=== PATIENT | female | born 1950 | race Caucasian/White ===

== ENCOUNTER 2017-08-25 11:36 | Inpatient (IN) | payer MEDICAID, OTHER ==
[2017-08-25 12:32] LABS: Hematocrit 39 % (35-47); Hemoglobin 12.7 g/dl (12.0-16.0); Mean Corpuscular HGB Conc 33 g/dl (31-36); Mean Corpuscular Hemoglobin 25 pg (27-31); Mean Corpuscular Volume 78 fL (80-97); Mean Platelet Volume 8 um3 (7.4-10.4); Red Blood Count 5.05 10^6/ul (4.0-5.4); Red Cell Distribution Width 18 % (10.5-15); White Blood Count 10.2 10^3/ul (3.5-10.8)
[2017-08-25 12:50] LABS: ALT 32 U/L (7-52); AST 56 U/L (13-39); Acetaminophen < 15 mcg/mL; Albumin 3.9 g/dL (3.2-5.2); Alcohol < 10 mg/dL (<10); Alkaline Phosphatase 88 U/L (34-104); Anion Gap 12 mmol/L (2-11); Blood Urea Nitrogen 24 mg/dL (6-24); CO2 Carbon Dioxide 23 mmol/L (22-32); Calcium 9.7 mg/dL (8.6-10.3); Chloride 101 mmol/L (101-111); EGFR African American 92.3 (>60); EGFR Non-African American 71.8 (>60); Globulin 3.5 g/dL (2-4); Glucose 89 mg/dL (70-100); Salicylate < 2.50 mg/dL (<30); Sodium 136 mmol/L (133-145); Total Protein 7.4 g/dL (6.4-8.9)
[2017-08-25 13:03] LABS: Troponin I 0.02 ng/mL (<0.04)
[2017-08-25 13:04] LABS: TSH (Thyroid Stimulating Horm) 2.11 mcIU/mL (0.34-5.60)
[2017-08-25] MEDS ORDERED: diPHENhydraMINE IV* 50 MG/ML 1 ml VIAL (BENADRYL) IM ONE (13:18)
[2017-08-25] MEDS ORDERED: Haloperidol INJ IV/IM* 5 MG/ML AMP IM ONE (13:18)
[2017-08-25] MEDS ORDERED: Potassium Chlor TAB* 20 MEQ TAB.ER PO ONE ×2 (13:18→18:07)
[2017-08-25 13:27] LABS: Benzodiazepine Urine Screen None Detected (None Detect)
[2017-08-25 13:33] LABS: Urine Bacteria 1+ (Absent); Urine Bilirubin Negative (Negative); Urine Glucose Negative (Negative); Urine Nitrite Negative (Negative)
--- NOTE | 2017-08-25 13:36 | RAD ---
INDICATION: Altered mental status. COMPARISON: There are no prior studies available for comparison. TECHNIQUE: A portable view of the chest was obtained. FINDINGS: The heart appears mildly enlarged. The lungs are underinflated and clear. No pleural effusion is seen. IMPRESSION: NO EVIDENCE FOR ACUTE DISEASE.
[2017-08-25] MEDS ORDERED: cefTRIAXone(*) 1 GM in NS 0.9% 50 ML* 50 ML IVPB ONE (13:50)
--- NOTE | 2017-08-25 14:11 | RAD ---
HISTORY: Confusion, delusional COMPARISONS: None TECHNIQUE: Multiple contiguous axial CT scans were obtained of the head without intravenous contrast. FINDINGS: HEMORRHAGE/INFARCT: There is no hemorrhage or acute infarct. MASSES/SHIFT: There is no mass or shift. EXTRA-AXIAL SPACES: There are no extra-axial fluid collections. SULCI AND VENTRICLES: The sulci and ventricles are normal in size and position for the patient's stated age. CEREBRUM: There are no focal parenchymal abnormalities. BRAINSTEM: There are no focal parenchymal abnormalities. CEREBELLUM: There are no focal parenchymal abnormalities. VESSELS: The vessels are grossly normal. PARANASAL SINUSES: The paranasal sinuses are clear. ORBITS: The orbits are unremarkable. BONES AND SOFT TISSUE: No bone or soft tissue abnormalities are noted. OTHER: None IMPRESSION: NO ACUTE INTRACRANIAL PATHOLOGY.
--- NOTE | 2017-08-25 16:12 | CONSULT ---
Subjective Date of Service: 08/25/17 Interval History: Asked to see patient who was found confused on her bathroom floor 67 yo F with unknown medical history p/w confusion, delusions. Speech is a bit pressured and tangential, she is delusional. When asked where she is, she is able to state that she is at [facility] and came by an ambulance however she states she is here because she had a miscarriage this morning. She says she "felt life " inside of her and now it is gone. She tells me she was diagnosed with paranoid schizophrenia and bipolar disorder in the past and used to me on medications but 5 months ago she "threw them out" because she was sick and tired of them. Also making other claims that Aneesh William is the president and she is the first lady, that there is a beast in her closet at home and that no one can touch. Family History: Findings - Unable to obtain Social History: Findings - Unable to obtain Past Medical History: Findings - Unable to obtain Review of Systems - Measurements Intake and Output: Intake and Output Last 24 Hours 08/23/17 08/24/17 08/25/17 08/26/17 06:59 06:59 06:59 06:59 Weight 68.039 kg - Review of Systems General Comments: Unreliable Objective Vital Signs 08/25/17 08/25/17 08/25/17 11:47 11:49 12:00 Temperature 98.1 F Pulse Rate 90 82 83 Respiratory 23 Rate Blood Pressure 159/59 (mmHg) O2 Sat by Pulse 95 94 94 Oximetry 08/25/17 08/25/17 14:47 14:54 Temperature Pulse Rate 93 88 Respiratory Rate Blood Pressure 169/58 (mmHg) O2 Sat by Pulse 92 95 Oximetry Oxygen Devices in Use Now: None Appearance: Middle-aged, F, laying in bed in NAD, talking out loud prior to my entering the room Eyes: No Scleral Icterus Ears/Nose/Mouth/Throat: - - Dry MM Respiratory: Symmetrical Chest Expansion and Respiratory Effort, Clear to Auscultation Cardiovascular: NL Sounds; No Murmurs; No JVD, RRR Abdominal: NL Sounds; No Tenderness; No Distention Lymphatic: No Cervical Adenopathy Extremities: No Edema Skin: No Rash or Ulcers Neurological: - - Alert, oriented, no focal deficits Result Diagrams: 08/25/17 11:57 08/25/17 11:57 Assessment/Plan - Billing 67 yo F with hx of HTN and reported history of bipolar disorder, paranoid schizophrenia apparently off of psych meds presents with confusion/delusions. I think patient's problems are mostly due to psych issues and medication non- compliance. She has a mildly abnormal UA and she does endorse dysuria although answers in the affirmative to most ROS questions. To be on the safe side will treat with PO Keflex x 3 days. I do not think she requires a medical admission and in fact I don't think she would do well on a medical floor. Recommend Psych evaluation and consideration for admission to [facility].
[2017-08-25] MEDS: Cephalexin CAP* 250 MG PO SCH ×2 (18:29→21:53)
[2017-08-25 19:21] LABS: BUN/Creatinine Ratio 26.3 (8-20); Calcium 9.6 mg/dL (8.6-10.3); EGFR African American 97.9 (>60); EGFR Non-African American 76.1 (>60); Potassium 4.4 mmol/L (3.5-5.0)
--- NOTE | 2017-08-25 23:14 | ED ---
Kelly Garsia Gabriel, scribed for Demetrius Chand MD on 08/25/17 at 1223 . Psychiatric Complaint - HPI Summary HPI Summary: This patient is a 67 year old F BIBA to [facility] after being found in her bathroom confused and delusional after not taking her physc meds - per triage note Level 5 Caveat: HPI limited due to patient hallucinating and responding in a random and irrationally manner. - History Of Current Complaint Chief Complaint: EDMentalHealth Time Seen by Provider: 08/25/17 12:12 - Allergies/Home Medications Allergies/Adverse Reactions: Allergies Allergy/AdvReac Type Severity Reaction Status Date / Time No Known Allergies Allergy Verified 08/25/17 16:42 Home Medications: Home Medications Diphenhydramine HCl [Diphenhist] 25 - 75 mg PO BEDTIME 08/25/17 [History Confirmed 08/25/17] Divalproex ER TAB(*) [Depakote ER TAB(*)] 1,500 mg PO DAILY 08/25/17 [History Confirmed 08/25/17] Folic Acid TAB* [Folvite TAB*] 1 mg PO DAILY 08/25/17 [History Confirmed ] Furosemide TAB* [Lasix TAB*] 20 mg PO DAILY 08/25/17 [History Confirmed 08/25/17 ] Hydrochlorothiazide TAB* [Hydrodiuril TAB*] 25 mg PO DAILY 08/25/17 [History Confirmed 08/25/17] Levothyroxine TAB* [Synthroid TAB*] 88 mcg PO DAILY 08/25/17 [History Confirmed 08/25/17] Melatonin (NF) [Meladox] 3 mg PO BEDTIME 08/25/17 [History Confirmed 08/25/17] Meloxicam(NF) [Mobic(NF)] 7.5 mg PO BID 08/25/17 [History Confirmed 08/25/17] Omeprazole CAP* [Prilosec CAP* 20 MG] 40 mg PO QAM 08/25/17 [History Confirmed 08/25/17] Oxazepam CAP* [Serax CAP*] 15 mg PO BEDTIME 08/25/17 [History Confirmed 08/25/17 ] Paliperidone TAB* [Invega TAB*] 6 mg PO DAILY 08/25/17 [History Confirmed ] Paliperidone [Paliperidone ER] 6 mg PO DAILY 08/25/17 [History Confirmed ] Simvastatin TAB(NF) [Zocor(NF)] 10 mg PO BEDTIME 08/25/17 [History Confirmed ] PMH/Surg Hx/FS Hx/Imm Hx Previously Healthy: No Infectious Disease History: No Infectious Disease History: Denies: Traveled Outside the [place] in Last 30 Days - Social History Alcohol Use: None Substance Use Type: Reports: None Smoking Status (MU): Never Smoked Tobacco - Additional Comments History Additional Comments: Level 5 Caveat: Medical history limited due to patient hallucinating and responding in a random and irrationally manner. Review of Systems - ROS Summary Review of Systems Summary: Level 5 Caveat: ROS limited due to patient hallucinating and responding in a random and irrationally manner. Psychological: Other - Patient is hallucinating All Other Systems Reviewed And Are Negative: No Physical Exam Triage Information Reviewed: Yes Vital Signs On Initial Exam: Initial Vitals Pulse Pulse Ox 90 95 08/25/17 11:47 08/25/17 11:47 Vital Signs Reviewed: Yes Completion Of Physical Exam Limited Due To: Level 5 Appearance: Positive: No Pain Distress Skin: Positive: Warm, Skin Color Reflects Adequate Perfusion Head/Face: Positive: Normal Head/Face Inspection Eyes: Positive: EOMI Respiratory/Lung Sounds: Positive: Clear to Auscultation, Breath Sounds Present Cardiovascular: Positive: RRR. Negative: Murmur Abdomen Description: Positive: Nontender Musculoskeletal: Negative: Edema Left, Edema Right Neurological: Positive: Sensory/Motor Intact, CN Intact II-III Psychiatric: Positive: Anxious - the patient is actively talking to people that are not in the room. - Sabino Coma Scale Coma Scale Total: 15 Diagnostics - Vital Signs Vital Signs Temp Pulse Resp BP Pulse Ox 08/25/17 12:00 83 94 08/25/17 11:49 98.1 F 82 23 159/59 94 08/25/17 11:47 90 95 - Laboratory Result Diagrams: 08/25/17 11:57 08/25/17 18:32 Lab Statement: Any lab studies that have been ordered have been reviewed, and results considered in the medical decision making process. - Radiology CXR Radiology Interpretation Completed By: Radiologist - NO EVIDENCE FOR ACUTE DISEASE. ED physician has reviewed this radiology report and agrees. - CT CT Brain CT Interpretation Completed By: Radiologist - T Brain reveals, per radiologist, NO ACUTE INTRACRANIAL PATHOLOGY. ED physician has reviewed this radiology report and agrees. - EKG 14:25 Cardiac Rate: NL EKG Rhythm: Sinus Rhythm - 84 BPM EKG Interpretation: Normal MS, RBBB Course/Dx - Course Course Of Treatment: 67 yr old femlae with psychosis, uti. MH history. Admit to hospital. - Differential Dx/Clinical Impression Provider Diagnosis: UTI (urinary tract infection), Psychosis - Physician Notifications Discussed Care Of Patient With: Juan C Tubbs Time Discussed With Above Provider: 16:00 Instructed by Provider To: Other - Discussed patient care with Loyd Tubbs who came and saw the patient and he recommended that the patient should not be admitted but instead should be sent to psychiatry. Discharge - Discharge Plan Condition: Good Disposition: OTHER Discharge Disposition Comment: final dispo pending sign out to Dr Waggoner [id number] Referrals: Nii Roque MD [Primary Care Provider] - The documentation as recorded by the Kelly staples Gabriel accurately reflects the service I personally performed and the decisions made by , Demetrius Chand MD.
[2017-08-26] MEDS: Cephalexin CAP* 250 MG PO SCH ×2 (07:34→12:59)
[2017-08-26 08:54] LABS: ALT 27 U/L (7-52); AST 49 U/L (13-39); Albumin 3.6 g/dL (3.2-5.2); Alkaline Phosphatase 82 U/L (34-104); Anion Gap 8 mmol/L (2-11); BUN/Creatinine Ratio 21.7 (8-20); Blood Urea Nitrogen 15 mg/dL (6-24); CO2 Carbon Dioxide 25 mmol/L (22-32); Calcium 9.5 mg/dL (8.6-10.3); Chloride 102 mmol/L (101-111); EGFR African American 109.5 (>60); EGFR Non-African American 85.1 (>60); Globulin 3.5 g/dL (2-4); Glucose 134 mg/dL (70-100); Potassium 3.6 mmol/L (3.5-5.0); Sodium 135 mmol/L (133-145); Total Protein 7.1 g/dL (6.4-8.9)
[2017-08-26] MEDS ORDERED: Cephalexin CAP* 500 MG PO ONE (13:19)
[2017-08-26] MEDS ORDERED: LORazepam TAB(*) 1 MG PO ONE (14:29)
[2017-08-26] MEDS ORDERED: Haloperidol TAB* 5 MG PO ONE (14:29)
[2017-08-26] MEDS ORDERED: Hydrochlorothiazide TAB* 25 MG PO ONE (14:31)
[2017-08-26] MEDS ORDERED: Omeprazole CAP* 20 MG PO ONE (14:31)
[2017-08-26] MEDS ORDERED: Folic Acid TAB* 1 MG PO ONE (14:31)
[2017-08-26 15:29] LABS: T4 8.41 mcg/mL (6.09-12.23)
[2017-08-26 15:32] LABS: TSH (Thyroid Stimulating Horm) 2.11 mcIU/mL (0.34-5.60)
[2017-08-26 15:39] LABS: Total T3 0.69 ng/mL (0.87-1.78)
[2017-08-26 16:20] LABS: Valproic Acid < 13.0 mcg/mL (50-100)
[2017-08-26] MEDS: CMC:Meloxicam(NF) 7.5 MG TAB PO SCH (16:51)
--- NOTE | 2017-08-26 17:57 | ED ---
I, Kasi Renteria, scribed for Loyd Bella MD on 08/26/17 at 0919 . Progress - Progress Note Progress Note: Pt signed out by Dr. Waggoner. Re-Evaluation - Re-Evaluation 1 Re-Evaluation Time: 08:55 Comment: Pt is delusional. I see no signs of hepatic encephalopathy. The pt is suitable for psychiatric admisison. Course/Dx - Course Course Of Treatment: On re-eval, the pt is delusional. I see no signs of hepatic encephalopathy. The pt is suitable for psychiatric admisison. Spoke with a remediation bioanalytics consultant at 09:30. I again recommended the pt be admitted to psych services. They will call back and advise us with their decision. - Diagnoses Provider Diagnoses: UTI (urinary tract infection), Psychosis - Provider Notifications Time Discussed With Above Provider: 16:00 Instructed by Provider To: Other - Discussed patient care with Loyd Tubbs who came and saw the patient and he recommended that the patient should not be admitted but instead should be sent to psychiatry. The documentation as recorded by the kenyattaibMyra salazar Edward accurately reflects the service I personally performed and the decisions made by me, Loyd Bella MD.
[2017-08-27] MEDS ORDERED: OLANzapine TAB*ODT* 10 MG TAB PO ONE (00:32)
[2017-08-27] MEDS ORDERED: Haloperidol INJ IV/IM* 5 MG/ML AMP IM PRN (03:40)
[2017-08-27] MEDS ORDERED: LORazepam INJ* 2 MG/ML 1 ML VIAL IM PRN (03:42)
[2017-08-27] MEDS ORDERED: Haloperidol TAB* 5 MG PO PRN (03:43)
[2017-08-27] MEDS ORDERED: LORazepam TAB(*) 1 MG PO PRN (03:44)
[2017-08-27] MEDS ORDERED: LORazepam INJ* 2 MG/ML 1 ML VIAL ONE ×2 (03:45→23:07)
[2017-08-27] MEDS ORDERED: Haloperidol INJ IV/IM* 5 MG/ML AMP ONE ×2 (03:45→23:07)
[2017-08-27] MEDS ORDERED: LORazepam TAB(*) 1 MG PO ONE (04:00)
[2017-08-27] MEDS ORDERED: Haloperidol TAB* 5 MG PO ONE (04:00)
[2017-08-27] MEDS ORDERED: Levothyroxine TAB* 88 MCG TAB PO ONE (06:00)
[2017-08-27] MEDS: Cephalexin CAP* 250 MG PO SCH ×5 (11:42→21:09)
[2017-08-27] MEDS: CMC:Meloxicam(NF) 7.5 MG TAB PO SCH (11:42)
[2017-08-27] MEDS: Vitamin THERAPEUTIC TAB PO SCH (11:43)
[2017-08-27] MEDS ORDERED: OLANzapine TAB*ODT* 5 MG ONE (13:47)
[2017-08-27] MEDS: OLANzapine TAB*ODT* 5 MG PO SCH (14:11)
--- NOTE | 2017-08-27 21:19 | HP ---
HISTORY AND PHYSICAL: DATE OF ADMISSION: 08/26/17 IDENTIFYING DATA: Laura is a 67-year-old female with no known history of psychiatric treatment here or any known past psychiatric history, was brought to the emergency department by EMS after she activated a medical alarm from her apartment. According to the EMS report, she was found by them in a confused, disorganized, psychotic and dishevelled state. At the time, she reported to the EMS people that she just had a miscarriage and was bleeding from her vagina which was found not to be true. On presentation, there was some question as to whether she was in a state of delirium due to some unknown medical conditions. However, her labs showed that she had a UTI and elevated ammonia level which could be the potential reason for her to be in a state indicative of delirium manifested as auditory and visual hallucinations and psychomotor agitation, disorganization of thoughts and behaviors, making gestures and senseless comments, frequently yelling at unseen objects. She was in the emergency room overnight and received few doses of antibiotics to treat her UTI. In the morning, when I went to the emergency department to evaluate her, she continued to be disorganized, agitated, yelling at unseen objects, and gesturing as if she was experiencing visual hallucinations. Her conversations were all nonsensical and she was a very poor historian. We decided to admit her on behavioral health unit and monitor her closely. Multiple attempts to evaluate her by myself and staff members were unsuccessful because of her showing disorganization and her inability to provide any meaningful information. Once again, this morning when I tried to talk to her, she yelled at me saying that get out of here and continued to respond to some unseen objects, putting her hands up and making gestures. Rest of the history is unobtainable and there was no collateral that we could obtain from anyone that known to us. There were some indications that she has not been taking her medications for some time. That was also evidenced by very low level of Depakote in her serum. It was very difficult to do a physical examination in the emergency department as expressed by the ER staff. She was incontinent of both stool and urine. Other than that, there was no indication that she was in any acute physical distress. Vitals were all within normal limits with a blood pressure of 169/58, pulse rate of 80 to 90, temperature within normal range, O2 sat in the high 90s. LABORATORY DATA: Review of labs was mostly unremarkable. CBC with differential showed a WBC count of 10.2, hemoglobin 12.7, hematocrit 39, platelet count 264,000. CMP showed sodium of 136, initial potassium level was 3.0 which was later corrected, chloride was 101, carbon dioxide 23, BUN 24, creatinine 0.80. Her Depakote level was in 20s. Her ammonia level initially was high in 60s which eventually came down to mid 50s. MENTAL STATUS EXAMINATION: Laura is a 67-year-old obese, healthy appearing female wearing a hospital gown whose personal hygiene appears to be extremely poor with strong smell of urine and stool. She was alert, but completely disoriented at least to date and time. She knew she as at [facility]; however, could not identify anyone around her, everybody around her were anyway strangers. She knew her name, and at the time of evaluation she was showing something in the space and was yelling at that time to time. Rest of the mental status examination was unable to be completed. SUMMARY: This is a 67-year-old female brought by EMS who was found in her apartment in an agitated, disorganized state and making no sense of what she was trying to tell the EMS people. She continued to be disorganized and disoriented after her admission to the behavioral health unit. Her labs showed some abnormalities in her urine as well as her ammonia level was high raising a concern about a state of delirium; however, it was unknown whether she was compliant with her psychotropic medications if there were any; however, list of medicines that was provided did have her own Depakote. HOME MEDICATIONS: Included: 1. Melatonin. 2. Folic acid. 3. Hydrochlorothiazide. 4. Invega p.o. 5. Simvastatin. 6. Meloxicam. 7. Omeprazole. 8. Levothyroxine. 9. Furosemide. 10. Depakote. 11. Omeprazole. 12. Diphenhydramine. DIAGNOSTIC IMPRESSION: MENTAL HEALTH DIAGNOSES: Delirium secondary to general medical conditions such as urinary tract infection as well as high ammonia level, rule out bipolar disorder, rule out unspecified psychotic disorder. PHYSICAL HEALTH DIAGNOSES: Hypothyroidism, possible hypertension, and unspecified arthritis. TREATMENT PLAN: Laura will remain hospitalized on behavioral health unit for her safety, diagnostic clarification and psychopharmacological treatment to stabilize current psychotic symptoms. Her code status will remain full. She will be very closely monitored on the unit. Zyprexa Zydis 10 mg p.o. was prescribed. The patient refused any p.o. medications including her antibiotic and psychotropic medications. Haldol 5 mg IM q.6 hours p.r.n. along with lorazepam 1 mg p.o. q.6 hours p.r.n. was ordered and she received multiple doses since yesterday which appeared to have calmed her down and she slept most of the time. However, whenever she was up at night she continued to scream and yell at unseen objects, requiring stat medications as she was refusing to take any oral medications. I have started Laura on lactulose 30 mL 3 times a day to see if her ammonia level goes down and then maybe she will in the meantime start taking her p.o. medications including antibiotics and other medical medications. We will also continue to offer her Zyprexa Zydis 5 mg at bedtime and increase it as she tolerates. Staff will continue to encourage her to take p.o. medications. [id number]/[facility] #: [id number] [place]
[2017-08-27] MEDS ORDERED: LORazepam INJ* 2 MG/ML 1 ML VIAL IM ONE (23:11)
[2017-08-27] MEDS ORDERED: Haloperidol INJ IV/IM* 5 MG/ML AMP IM ONE (23:11)
[2017-08-28] MEDS: OLANzapine TAB*ODT* 5 MG PO SCH (08:56)
[2017-08-28] MEDS: Cephalexin CAP* 250 MG PO SCH ×2 (08:56→12:59)
[2017-08-28] MEDS: CMC:Meloxicam(NF) 7.5 MG TAB PO SCH (08:56)
[2017-08-28] MEDS: Vitamin THERAPEUTIC TAB PO SCH (08:57)
--- NOTE | 2017-08-28 10:10 | PN ---
Subjective - Subjective Service Type: 75330 Hosp care 15 min low complexity Subjective: Patient continues to display disorganized and disoriented TP. Patient is more interactive with staff and is able to make her needs known. Patient is A&Ox1. She has had poor sleep and appetite. Patient noted this morning to be soiled of loose stools. She has reported no SI/HI or AH/VH today. She has been safe on all checks. Patient has completed today a 3-day course of Keflex 250mg po QID for UTI. Will repeat urine cx in am. Repeating also CMP and Mg level for mx of low potassium. Also will order another Ammonia level to monitor that it continues to decline. Will D/C Lactulose ordered. Objective - Appearance Appearance: Well Developed/Nourished Dysmorphic Features: No Hygiene: Mal-odorous Grooming: Disheveled - Behavior Psychomotor Activities: Abnormal-Decreased Exhibits Abnormal Movement: No - Attitude and Relatedness Attitude and Relatedness: Psychotically Related Eye Contact: Poor - Speech Quality: Unpressured Latencies: Long Quantity: Terse - Mood Patient's Decription of Mood: "Okay" - Affect Observed Affect: Constricted Affect Consistent with: Dysphoria - Thought Process Patient's Thought Process: Impoverished Thought Content: No Passive Wish, No Suicidal Planning, No Homicidal Ideation, No Paranoid Ideation - Sensorium Experiencing Hallucinations: No, Sensorium is Clear Type of Hallucinations: Visual: No, Auditory: No, Command: No - Level of Consciousness Level of Consciousness: Obtunded Orientation: No Intact, No Orientated to Time, No Orientated to Place, No Orientated to Person - Impulse Control Impulse Control: Impaired - Insight and Judgement Insight and Judgement: Impaired - Group Participation Particating in Group Activities: No - Medication Management Medication Management Adherence: Yes Assessment - Assessment Merits Inpatient Hospitalization: For Immediate Safety, For Stabilization, To Initiate Treatment, For Ongoing Evaluation, For Discharge Planning Inpatient DSM-IV Dx: 1. Delirium due to another medical condition (UTI). 2. Bipolar d/o. 3. Hypothyroidism Plan - Plan Treatment Plan: Name: JULES CHAU Birthdate: 1950 [id number] 1. Continue admission to [facility] for safety and symptom mx. 2. Patient is elderly with noted UTI. Per record, patient has completed a 3 day course of Keflex 250mg po QID for UTI. Will repeat urine cx in am. 3. Will continue D/C Lactulose and re-assess need in am. 4. Divalproex ER re-started at 1500mg po qhs for mood stabilization. 5. Continue medical meds as Rx'd prior to admission. 6. Will re-peat and refer ? of Hypothyroidism to PCP once discharged. 7. Continue Synthroid at 88mcg daily for mx of Hypothyroidism as Rx'd prior to admission. 8. Will continue Serax at 15mg po qhs for anxiety. 9. Obtain collateral information from outpt caregivers, family and providers. 10. Patient currently unable to participate in therapy. Continued Medication Management: Continue Outpt Medication Medications: Current Medications Acetaminophen (Tylenol Tab*) 650 mg PO Q4H PRN PRN Reason: PAIN,TEMP>101 Al Hydrox/Mg Hydrox/Simethicone (Maalox Plus*) 30 ml PO Q4H PRN PRN Reason: INDIGESTION Cephalexin HCl (Keflex Cap*) 250 mg PO QID [facility] Stop: 08/28/17 16:59 Last Admin: 08/28/17 08:56 Dose: 250 mg Haloperidol (Haldol Tab*) 5 mg PO Q6H PRN PRN Reason: AGITATION Lactulose (Lactulose*) 30 ml PO TID [facility] Last Admin: 08/28/17 09:05 Dose: 30 ml Lorazepam (Ativan Tab(*)) 1 mg PO Q6H PRN PRN Reason: AGITATION Meloxicam (Mobic(Nf)) 7.5 mg PO DAILY [facility] Last Admin: 08/28/17 08:56 Dose: 7.5 mg Multivitamins (Theragran Tab*) 1 tab PO DAILY [facility] Last Admin: 08/28/17 08:57 Dose: 1 tab Olanzapine (Zyprexa * Tab Odt) 5 mg PO DAILY [facility] Last Admin: 08/28/17 08:56 Dose: 5 mg - Discharge Plan Discharge Plan: [facility]
[2017-08-28 10:35] LABS: Albumin 3.6 g/dL (3.2-5.2); BUN/Creatinine Ratio 16.3 (8-20); Calcium 9.6 mg/dL (8.6-10.3); EGFR African American 92.3 (>60); EGFR Non-African American 71.8 (>60); Globulin 3.6 g/dL (2-4); Potassium 3.1 mmol/L (3.5-5.0); Total Bilirubin 0.6 mg/dL (0.2-1.0); Total Protein 7.2 g/dL (6.4-8.9)
[2017-08-29] MEDS: CMC:Meloxicam(NF) 7.5 MG TAB PO SCH (09:14)
[2017-08-29] MEDS: Vitamin THERAPEUTIC TAB PO SCH (09:14)
[2017-08-29] MEDS: OLANzapine TAB*ODT* 5 MG PO SCH ×2 (09:14→09:24)
[2017-08-29 15:41] LABS: Albumin 3.7 g/dL (3.2-5.2); BUN/Creatinine Ratio 16.7 (8-20); Calcium 9.7 mg/dL (8.6-10.3); EGFR African American 74.8 (>60); EGFR Non-African American 58.1 (>60); Globulin 3.7 g/dL (2-4); Magnesium 1.7 mg/dL (1.9-2.7); Potassium 3.8 mmol/L (3.5-5.0); Total Bilirubin 0.6 mg/dL (0.2-1.0); Total Protein 7.4 g/dL (6.4-8.9)
--- NOTE | 2017-08-29 16:52 | PN ---
Subjective - Subjective Service Type: 88647 Hosp care 15 min low complexity Subjective: Laura is met for the first time by this observer this afternoon. She is lying in bed, awake and invites me to come in. She immediately starts making irrational statements and interacting with an unseen person in the room. "It's true what you heard. I have Larry Pulido's baby. I need the mannequin maker right in here with me." She makes multiple statements to the effect that the politician Aneesh William is president of the [employer] and has a personal relationship with her. She is loud and hyperverbal at times. She denies SI or HI but is quite unstable. Patient continues to refuse medications. Objective - Appearance Appearance: Obese Dysmorphic Features: No Hygiene: Dirty Grooming: Disheveled - Behavior Psychomotor Activities: Normal Exhibits Abnormal Movement: No - Attitude and Relatedness Attitude and Relatedness: Psychotically Related Eye Contact: Poor - Speech Quality: Pressured Latencies: Short Quantity: Copious - Mood Patient's Decription of Mood: "Upset" - Affect Observed Affect: Labile Affect Consistent with: Dysphoria - Thought Process Patient's Thought Process: Loose Associations Thought Content: Yes Paranoid Ideation, No Passive Wish, No Suicidal Planning, No Homicidal Ideation - Sensorium Experiencing Hallucinations: Yes Type of Hallucinations: Visual: Yes, Auditory: Yes, Command: No - Level of Consciousness Level of Consciousness: Agitated Orientation: Yes Intact, Yes Orientated to Time, Yes Orientated to Place, Yes Orientated to Person - Impulse Control Impulse Control: Poor - Insight and Judgement Insight and Judgement: Impaired - Group Participation Particating in Group Activities: No - Medication Management Medication Management Adherence: No Assessment - Assessment Merits Inpatient Hospitalization: For Immediate Safety, For Stabilization Inpatient DSM-IV Dx: 1. Delirium due to another medical condition (UTI). 2. Bipolar d/o. 3. Hypothyroidism Clinical Impression: 67 y.o. single, white female with chronic mental illness, non-adherent with outpatient treatment for past 2 years, brought in by EMS after activating her home emergency medical bracelet after a fall, subsequently found to be illogical , confused, delusional and unable to take care of herself in the community. Plan - Plan Treatment Plan: Name: LAURA CHAU Birthdate: 1950 [id number] We will discontinue olanzapine, as the patient has a history of doing well on a combination of paliperidone and Depakote. These will be resumed and the patient is strongly encouraged to comply. We can consider Treatment Over Objection if she continues to decline pharmacotherapy. The patient's antibiotic course for her UTI has concluded. Labs for CMP and ammonia are pending. Continue inpatient level of care. Continued Medication Management: Start Medication Medications: Current Medications Acetaminophen (Tylenol Tab*) 650 mg PO Q4H PRN PRN Reason: PAIN,TEMP>101 Al Hydrox/Mg Hydrox/Simethicone (Maalox Plus*) 30 ml PO Q4H PRN PRN Reason: INDIGESTION Haloperidol (Haldol Tab*) 5 mg PO Q6H PRN PRN Reason: AGITATION Lorazepam (Ativan Tab(*)) 1 mg PO Q6H PRN PRN Reason: AGITATION Meloxicam (Mobic(Nf)) 7.5 mg PO DAILY [facility] Last Admin: 08/29/17 09:14 Dose: 7.5 mg Multivitamins (Theragran Tab*) 1 tab PO DAILY [facility] Last Admin: 08/29/17 09:14 Dose: 1 tab Olanzapine (Zyprexa * Tab Odt) 5 mg PO DAILY [facility] Last Admin: 08/29/17 09:24 Dose: Not Given - Discharge Plan Discharge Plan: Inpatient Hospitalization
[2017-08-29] MEDS: Paliperidone TAB* 6 MG PO SCH (17:55)
[2017-08-29] MEDS: Divalproex DR TAB(*) 500 MG PO SCH (17:55)
[2017-08-30] MEDS: Divalproex DR TAB(*) 500 MG PO SCH (08:51)
[2017-08-30] MEDS: Paliperidone TAB* 6 MG PO SCH (08:51)
[2017-08-30] MEDS: CMC:Meloxicam(NF) 7.5 MG TAB PO SCH (08:52)
[2017-08-30] MEDS: Vitamin THERAPEUTIC TAB PO SCH (08:52)
--- NOTE | 2017-08-30 11:16 | PN ---
Subjective - Subjective Service Type: [id number] Hosp care 15 min low complexity Subjective: The patient started taking her medication last night and has continued so far this morning. On exam she is still quite delusional and tells me that she has a note for her downstairs from President [employer] Laws. "That's not all I want to tell you. I'm ." she whispers, pointing to her abdomen. She is isolative to her room and not participating in groups or milieu socialization. Objective - Appearance Appearance: Obese Dysmorphic Features: No Hygiene: Dirty Grooming: Disheveled - Behavior Psychomotor Activities: Normal Exhibits Abnormal Movement: No - Attitude and Relatedness Attitude and Relatedness: Psychotically Related Eye Contact: Fair - Speech Quality: Pressured Latencies: Normal Quantity: Copious - Mood Patient's Decription of Mood: "Upset" - Affect Observed Affect: Labile Affect Consistent with: Dysphoria - Thought Process Patient's Thought Process: Loose Associations Thought Content: Yes Paranoid Ideation, No Passive Wish, No Suicidal Planning, No Homicidal Ideation - Sensorium Experiencing Hallucinations: Yes Type of Hallucinations: Visual: Yes, Auditory: Yes, Command: No - Level of Consciousness Level of Consciousness: Alert Orientation: Yes Intact, Yes Orientated to Time, Yes Orientated to Place, Yes Orientated to Person - Impulse Control Impulse Control: Poor - Insight and Judgement Insight and Judgement: Impaired - Group Participation Particating in Group Activities: No - Medication Management Medication Management Adherence: Partial Assessment - Assessment Merits Inpatient Hospitalization: For Immediate Safety, For Stabilization Inpatient DSM-IV Dx: 1. Delirium due to another medical condition (UTI). 2. Bipolar d/o. 3. Hypothyroidism Clinical Impression: 67 y.o. single, white female with chronic mental illness, non-adherent with outpatient treatment for past 2 years, brought in by EMS after activating her home emergency medical bracelet after a fall, subsequently found to be illogical , confused, delusional and unable to take care of herself in the community. Plan - Plan Treatment Plan: Name: JULES CHAU Birthdate: 1950 [id number] The patient has a history of doing well on a combination of paliperidone and Depakote and these have been resumed. The patient is strongly encouraged to comply. We can consider Treatment Over Objection if she continues to decline pharmacotherapy. The patient's antibiotic course for her UTI has concluded. Labs for CMP and ammonia are pending. Continue inpatient level of care. Continued Medication Management: Start Medication Medications: Current Medications Acetaminophen (Tylenol Tab*) 650 mg PO Q4H PRN PRN Reason: PAIN,TEMP>101 Al Hydrox/Mg Hydrox/Simethicone (Maalox Plus*) 30 ml PO Q4H PRN PRN Reason: INDIGESTION Divalproex Sodium (Depakote Dr Tab(*)) 1,000 mg PO DAILY [facility] Last Admin: 08/30/17 08:51 Dose: 1,000 mg Haloperidol (Haldol Tab*) 5 mg PO Q6H PRN PRN Reason: AGITATION Lorazepam (Ativan Tab(*)) 1 mg PO Q6H PRN PRN Reason: AGITATION Meloxicam (Mobic(Nf)) 7.5 mg PO DAILY [facility] Last Admin: 08/30/17 08:52 Dose: 7.5 mg Multivitamins (Theragran Tab*) 1 tab PO DAILY [facility] Last Admin: 08/30/17 08:52 Dose: 1 tab Paliperidone (Invega Tab*) 6 mg PO DAILY [facility] Last Admin: 08/30/17 08:51 Dose: 6 mg - Discharge Plan Discharge Plan: Inpatient Hospitalization
[2017-08-31] MEDS: Vitamin THERAPEUTIC TAB PO SCH (08:41)
[2017-08-31] MEDS: Divalproex DR TAB(*) 500 MG PO SCH (08:41)
[2017-08-31] MEDS: CMC:Meloxicam(NF) 7.5 MG TAB PO SCH (08:41)
[2017-08-31] MEDS: Paliperidone TAB* 6 MG PO SCH (08:41)
--- NOTE | 2017-08-31 09:50 | PN ---
Subjective - Subjective Service Type: [id number] Hosp care 15 min low complexity Subjective: Laura is feeling better today and is out of her room and seems less agitated than previous hospital days. She has been taking her medications as prescribed but not necessarily going to groups. Today she again informs me that she has received a letter from [facility]. She is less intense about him and is actually quite sweet. She denies thoughts of harm to self or others and has been eating and drinking normally. Objective - Appearance Appearance: Obese Dysmorphic Features: No Hygiene: Normal Grooming: Fairly Well Kept - Behavior Psychomotor Activities: Normal Exhibits Abnormal Movement: No - Attitude and Relatedness Attitude and Relatedness: Psychotically Related Eye Contact: Good - Speech Quality: Unpressured Latencies: Normal Quantity: Appropriate - Mood Patient's Decription of Mood: "Great" - Affect Observed Affect: Expansive Affect Consistent with: Euphoria - Thought Process Patient's Thought Process: Disorganized, Loose Associations Thought Content: Yes Paranoid Ideation, No Passive Wish, No Suicidal Planning, No Homicidal Ideation - Sensorium Experiencing Hallucinations: Yes Type of Hallucinations: Visual: No, Auditory: Yes, Command: No - Level of Consciousness Level of Consciousness: Alert Orientation: Yes Intact, Yes Orientated to Time, Yes Orientated to Place, Yes Orientated to Person - Impulse Control Impulse Control: Poor - Insight and Judgement Insight and Judgement: Impaired - Group Participation Particating in Group Activities: No - Medication Management Medication Management Adherence: Yes Assessment - Assessment Merits Inpatient Hospitalization: For Immediate Safety, For Stabilization Inpatient DSM-IV Dx: 1. Delirium due to another medical condition (UTI). 2. Bipolar d/o. 3. Hypothyroidism Clinical Impression: 67 y.o. single, white female with chronic mental illness, non-adherent with outpatient treatment for past 2 years, brought in by EMS after activating her home emergency medical bracelet after a fall, subsequently found to be illogical , confused, delusional and unable to take care of herself in the community. Plan - Plan Treatment Plan: Name: LAURA CHAU Birthdate: 1950 [id number] The patient has a history of doing well on a combination of paliperidone and Depakote and these have been resumed. She's started to show some improvement as her adherence has gotten better. The patient's antibiotic course for her UTI has concluded. Ammonia no longer elevated. Continue inpatient level of care. Continued Medication Management: Start Medication Medications: Current Medications Acetaminophen (Tylenol Tab*) 650 mg PO Q4H PRN PRN Reason: PAIN,TEMP>101 Al Hydrox/Mg Hydrox/Simethicone (Maalox Plus*) 30 ml PO Q4H PRN PRN Reason: INDIGESTION Divalproex Sodium (Depakote Er Tab(*)) 1,500 mg PO DAILY [facility] Haloperidol (Haldol Tab*) 5 mg PO Q6H PRN PRN Reason: AGITATION Lorazepam (Ativan Tab(*)) 1 mg PO Q6H PRN PRN Reason: AGITATION Meloxicam (Mobic(Nf)) 7.5 mg PO DAILY [facility] Last Admin: 08/31/17 08:41 Dose: 7.5 mg Multivitamins (Theragran Tab*) 1 tab PO DAILY [facility] Last Admin: 08/31/17 08:41 Dose: 1 tab Paliperidone (Invega Tab*) 6 mg PO DAILY [facility] Last Admin: 08/31/17 08:41 Dose: 6 mg - Discharge Plan Discharge Plan: Inpatient Hospitalization
[2017-09-01] MEDS: Acetaminophen TAB* 325 MG PO PRN (01:16)
[2017-09-01] MEDS ORDERED: Loperamide CAP* 2 MG PO ONE (10:19)
[2017-09-01] MEDS: Divalproex ER TAB(*) 500 MG PO SCH (10:45)
[2017-09-01] MEDS: Vitamin THERAPEUTIC TAB PO SCH (13:23)
[2017-09-01] MEDS: Paliperidone TAB* 6 MG PO SCH (13:23)
[2017-09-01] MEDS: CMC:Meloxicam(NF) 7.5 MG TAB PO SCH (13:23)
--- NOTE | 2017-09-01 15:02 | PN ---
Subjective - Subjective Subjective: Laura is seclusive to her room, she complains of waking every 2 AM but she is usually able to fall asleep. She denies side effects from prescribed meds although some drooling is noted. She offer delusional complaints "about fracking in her abdomen." She denies thoughts of harm to self or others and has been eating and drinking normally. Objective - Appearance Appearance: Healthy Appearing Dysmorphic Features: No Hygiene: Normal Grooming: Well Kept - Behavior Psychomotor Activities: Normal Exhibits Abnormal Movement: No - Attitude and Relatedness Attitude and Relatedness: Psychotically Related Eye Contact: Fair - Speech Quality: Unpressured Latencies: Normal Quantity: Appropriate - Mood Patient's Decription of Mood: "Okay" - Affect Observed Affect: Unvariable Affect Consistent with: Euthymia - Thought Process Patient's Thought Process: Coherent, Goal Directed Thought Content: Yes Paranoid Ideation, No Passive Wish, No Suicidal Planning, No Homicidal Ideation - Sensorium Experiencing Hallucinations: No, Sensorium is Clear - Level of Consciousness Level of Consciousness: Alert Orientation: Yes Intact - Impulse Control Impulse Control: Intact - Insight and Judgement Insight and Judgement: Impaired - Group Participation Particating in Group Activities: No - Medication Management Medication Management Adherence: Yes Assessment - Assessment Merits Inpatient Hospitalization: For Ongoing Evaluation, Consolidate Improvements Inpatient DSM-IV Dx: 1. Delirium due to another medical condition (UTI). 2. Bipolar d/o. 3. Hypothyroidism Clinical Impression: Ongoing impairing psychotic symptoms, adherent with prescribed meds, needs continued admission for stabilization. Plan - Plan Treatment Plan: Name: LAURA CHAU Birthdate: 1950 [id number] Continued Medication Management: Continue Outpt Medication Medications: Current Medications Acetaminophen (Tylenol Tab*) 650 mg PO Q4H PRN PRN Reason: PAIN,TEMP>101 Last Admin: 09/01/17 01:16 Dose: 650 mg Al Hydrox/Mg Hydrox/Simethicone (Maalox Plus*) 30 ml PO Q4H PRN PRN Reason: INDIGESTION Divalproex Sodium (Depakote Er Tab(*)) 1,500 mg PO DAILY [facility] Last Admin: 09/01/17 10:45 Dose: 1,500 mg Haloperidol (Haldol Tab*) 5 mg PO Q6H PRN PRN Reason: AGITATION Lorazepam (Ativan Tab(*)) 1 mg PO Q6H PRN PRN Reason: AGITATION Meloxicam (Mobic(Nf)) 7.5 mg PO DAILY [facility] Last Admin: 09/01/17 13:23 Dose: Not Given Multivitamins (Theragran Tab*) 1 tab PO DAILY [facility] Last Admin: 09/01/17 13:23 Dose: Not Given Paliperidone (Invega Tab*) 6 mg PO DAILY [facility] Last Admin: 09/01/17 13:23 Dose: Not Given - Discharge Plan Discharge Plan: Outpatient Follow Up
[2017-09-02] MEDS: Acetaminophen TAB* 325 MG PO PRN (03:35)
[2017-09-02] MEDS: CMC:Meloxicam(NF) 7.5 MG TAB PO SCH ×2 (09:50→11:18)
[2017-09-02] MEDS: Paliperidone TAB* 6 MG PO SCH ×2 (09:50→11:19)
[2017-09-02] MEDS: Vitamin THERAPEUTIC TAB PO SCH ×2 (09:50→11:19)
[2017-09-02] MEDS: Divalproex ER TAB(*) 500 MG PO SCH ×2 (09:50→11:18)
[2017-09-02] MEDS: Al Hydrox/Mg Hydrox/Simet LIQ* 30 ML UDC PO PRN (17:50)
[2017-09-03] MEDS: Divalproex ER TAB(*) 500 MG PO SCH (09:01)
[2017-09-03] MEDS: Paliperidone TAB* 6 MG PO SCH (09:01)
[2017-09-03] MEDS: CMC:Meloxicam(NF) 7.5 MG TAB PO SCH (09:01)
[2017-09-03] MEDS: Vitamin THERAPEUTIC TAB PO SCH (09:02)
[2017-09-03] MEDS ORDERED: LORazepam TAB(*) 1 MG PO PRN (10:56)
[2017-09-04] MEDS: Acetaminophen TAB* 325 MG PO PRN ×3 (01:10→13:58)
[2017-09-04] MEDS: CMC:Meloxicam(NF) 7.5 MG TAB PO SCH (09:00)
[2017-09-04] MEDS: Vitamin THERAPEUTIC TAB PO SCH (09:00)
[2017-09-04] MEDS: Paliperidone TAB* 6 MG PO SCH (09:01)
[2017-09-04] MEDS: Divalproex ER TAB(*) 500 MG PO SCH (09:01)
--- NOTE | 2017-09-04 13:26 | PN ---
Subjective - Subjective Service Type: [id number] Hosp care 15 min low complexity Subjective: The patient accidentally scalded herself with hot water at the coffee machine while trying to make tea this AM. Her hand is reddened but with no open lesions or blisters. Pharmacy was contacted and they recommended Triple AB ointment for the wound. Laura has been taking her medications as directed over the weekend and we will check her valproic acid level in the morning to determine whether she's on a therapeutic dose of this. She's much less disorganized than she previously was. Objective - Appearance Appearance: Obese Dysmorphic Features: No Hygiene: Normal Grooming: Fairly Well Kept - Behavior Psychomotor Activities: Normal Exhibits Abnormal Movement: No - Attitude and Relatedness Attitude and Relatedness: Cooperative Eye Contact: Fair - Speech Quality: Unpressured Latencies: Normal Quantity: Appropriate - Mood Patient's Decription of Mood: "Good" - Affect Observed Affect: Good Affect Consistent with: Euthymia - Thought Process Patient's Thought Process: Coherent Thought Content: Yes Paranoid Ideation, No Passive Wish, No Suicidal Planning, No Homicidal Ideation - Sensorium Experiencing Hallucinations: No, Sensorium is Clear Type of Hallucinations: Visual: No, Auditory: No, Command: No - Level of Consciousness Level of Consciousness: Alert Orientation: Yes Intact, Yes Orientated to Time, Yes Orientated to Place, Yes Orientated to Person - Impulse Control Impulse Control: Tenuous - Insight and Judgement Insight and Judgement: Fair - Group Participation Particating in Group Activities: No - Medication Management Medication Management Adherence: Yes Assessment - Assessment Merits Inpatient Hospitalization: For Immediate Safety, For Stabilization Inpatient DSM-IV Dx: 1. Delirium due to another medical condition (UTI). 2. Bipolar d/o. 3. Hypothyroidism Clinical Impression: 67 y.o. single, white female with chronic mental illness, non-adherent with outpatient treatment for past 2 years, brought in by EMS after activating her home emergency medical bracelet after a fall, subsequently found to be illogical , confused, delusional and unable to take care of herself in the community. Plan - Plan Treatment Plan: Name: LAURA CHAU Birthdate: 1950 [id number] The patient has a history of doing well on a combination of paliperidone and Depakote and these have been resumed. She's started to show some improvement as her adherence has gotten better. The patient's antibiotic course for her UTI has concluded. Recheck routine labs including VPA level. Continue inpatient level of care. Continued Medication Management: Start Medication Medications: Current Medications Acetaminophen (Tylenol Tab*) 650 mg PO Q4H PRN PRN Reason: PAIN,TEMP>101 Last Admin: 09/04/17 09:02 Dose: 650 mg Al Hydrox/Mg Hydrox/Simethicone (Maalox Plus*) 30 ml PO Q4H PRN PRN Reason: INDIGESTION Last Admin: 09/02/17 17:50 Dose: 30 ml Divalproex Sodium (Depakote Er Tab(*)) 1,500 mg PO DAILY [facility] Last Admin: 09/04/17 09:01 Dose: 1,500 mg Haloperidol (Haldol Tab*) 5 mg PO Q6H PRN PRN Reason: AGITATION Lorazepam (Ativan Tab(*)) 1 mg PO Q6H PRN PRN Reason: AGITATION Meloxicam (Mobic(Nf)) 7.5 mg PO DAILY [facility] Last Admin: 09/04/17 09:00 Dose: 7.5 mg Multivitamins (Theragran Tab*) 1 tab PO DAILY [facility] Last Admin: 09/04/17 09:00 Dose: 1 tab Paliperidone (Invega Tab*) 6 mg PO DAILY [facility] Last Admin: 09/04/17 09:01 Dose: 6 mg - Discharge Plan Discharge Plan: Inpatient Hospitalization
[2017-09-04] MEDS: Bacitracin OINTMENT PAK TOPICAL PRN (13:58)
[2017-09-05] MEDS: Bacitracin OINTMENT PAK TOPICAL PRN ×2 (07:30→11:20)
[2017-09-05] MEDS: Vitamin THERAPEUTIC TAB PO SCH (08:34)
[2017-09-05] MEDS: Paliperidone TAB* 6 MG PO SCH (08:34)
[2017-09-05] MEDS: Divalproex ER TAB(*) 500 MG PO SCH (08:35)
[2017-09-05] MEDS: CMC:Meloxicam(NF) 7.5 MG TAB PO SCH (08:35)
[2017-09-05 08:46] LABS: Albumin 3.4 g/dL (3.2-5.2); BUN/Creatinine Ratio 16.5 (8-20); Calcium 9.1 mg/dL (8.6-10.3); EGFR African American 93.6 (>60); EGFR Non-African American 72.8 (>60); Globulin 3.1 g/dL (2-4); HDL Cholesterol 42.1 mg/dL; Total Bilirubin 0.4 mg/dL (0.2-1.0); Total Protein 6.5 g/dL (6.4-8.9)
[2017-09-05] MEDS: Acetaminophen TAB* 325 MG PO PRN ×2 (11:20→18:08)
--- NOTE | 2017-09-05 12:21 | PN ---
Subjective - Subjective Service Type: [id number] Hosp care 15 min low complexity Subjective: The patient remains disorganized, claiming that she's talking to an invisible button and buckle maker next to her. She is compliant with all meds and I note that her VPA level is therapeutic as of this AM. She is pleasant with this observer and denies SI or HI. She states that she doesn't like living in [place] and would prefer to stay here for a longer period. The robles on her hands are still reddened and visible from early yesterday. Objective - Appearance Appearance: Obese Dysmorphic Features: No Hygiene: Normal Grooming: Fairly Well Kept - Behavior Psychomotor Activities: Normal Exhibits Abnormal Movement: No - Attitude and Relatedness Attitude and Relatedness: Cooperative Eye Contact: Fair - Speech Quality: Unpressured Latencies: Normal Quantity: Appropriate - Mood Patient's Decription of Mood: "Great" - Affect Observed Affect: Expansive Affect Consistent with: Euphoria - Thought Process Patient's Thought Process: Loose Associations Thought Content: Yes Paranoid Ideation, No Passive Wish, No Suicidal Planning, No Homicidal Ideation - Sensorium Experiencing Hallucinations: Yes Type of Hallucinations: Visual: Yes, Auditory: Yes, Command: No - Level of Consciousness Level of Consciousness: Alert Orientation: Yes Intact, Yes Orientated to Time, Yes Orientated to Place, Yes Orientated to Person - Impulse Control Impulse Control: Poor - Insight and Judgement Insight and Judgement: Impaired - Group Participation Particating in Group Activities: No - Medication Management Medication Management Adherence: Yes Assessment - Assessment Merits Inpatient Hospitalization: For Immediate Safety, For Stabilization Inpatient DSM-IV Dx: 1. Delirium due to another medical condition (UTI). 2. Bipolar d/o. 3. Hypothyroidism Clinical Impression: 67 y.o. single, white female with chronic mental illness, non-adherent with outpatient treatment for past 2 years, brought in by EMS after activating her home emergency medical bracelet after a fall, subsequently found to be illogical , confused, delusional and unable to take care of herself in the community. Plan - Plan Treatment Plan: Name: JULES CHAU Birthdate: 1950 [id number] The patient continues to display clear signs of psychotic thought process. We will increase paliperidone to 9mg daily and leave Depakote at 1500mg daily, as her level is therapeutic at 96. The patient's antibiotic course for her UTI has concluded. Continue inpatient level of care. Continued Medication Management: Continue Outpt Medication Medications: Current Medications Acetaminophen (Tylenol Tab*) 650 mg PO Q4H PRN PRN Reason: PAIN,TEMP>101 Last Admin: 09/05/17 11:20 Dose: 650 mg Al Hydrox/Mg Hydrox/Simethicone (Maalox Plus*) 30 ml PO Q4H PRN PRN Reason: INDIGESTION Last Admin: 09/02/17 17:50 Dose: 30 ml Divalproex Sodium (Depakote Er Tab(*)) 1,500 mg PO DAILY [facility] Last Admin: 09/05/17 08:35 Dose: 1,500 mg Haloperidol (Haldol Tab*) 5 mg PO Q6H PRN PRN Reason: AGITATION Lorazepam (Ativan Tab(*)) 1 mg PO Q6H PRN PRN Reason: AGITATION Meloxicam (Mobic(Nf)) 7.5 mg PO DAILY [facility] Last Admin: 09/05/17 08:35 Dose: 7.5 mg Multivitamins (Theragran Tab*) 1 tab PO DAILY [facility] Last Admin: 09/05/17 08:34 Dose: 1 tab Paliperidone (Invega Tab*) 9 mg PO DAILY [facility] Silver Sulfadiazine (Silvadine 1%*) 1 applic TOPICAL BID [facility] - Discharge Plan Discharge Plan: Inpatient Hospitalization Lab Results - Lab Results Lab Results: 09/04/17 09/05/17 09/05/17 14:18 08:14 08:14 Sodium 139 Potassium 4.0 Chloride 104 Carbon Dioxide 28 Anion Gap 7 BUN 13 Creatinine 0.79 Est GFR ( Amer) 93.6 Est GFR (Non-Af Amer) 72.8 BUN/Creatinine Ratio 16.5 Glucose 105 H Hemoglobin A1c 5.5 Calcium 9.1 Total Bilirubin 0.40 AST 27 ALT 21 Alkaline Phosphatase 60 Ammonia 38 Total Protein 6.5 Albumin 3.4 Globulin 3.1 Albumin/Globulin Ratio 1.1 Triglycerides 157 Cholesterol 165 LDL Cholesterol 92 HDL Cholesterol 42.1 Valproic Acid 96.0
[2017-09-05] MEDS: Silver Sulfadiazine 1%* 20 GM TOPICAL SCH ×2 (13:22→21:13)
[2017-09-06] MEDS: Divalproex ER TAB(*) 500 MG PO SCH (08:38)
[2017-09-06] MEDS: Al Hydrox/Mg Hydrox/Simet LIQ* 30 ML UDC PO PRN ×2 (08:38→12:46)
[2017-09-06] MEDS: CMC:Meloxicam(NF) 7.5 MG TAB PO SCH (08:38)
[2017-09-06] MEDS: Acetaminophen TAB* 325 MG PO PRN ×2 (08:38→12:46)
[2017-09-06] MEDS: Vitamin THERAPEUTIC TAB PO SCH (08:38)
[2017-09-06] MEDS: Silver Sulfadiazine 1%* 20 GM TOPICAL SCH (08:39)
[2017-09-06] MEDS: Paliperidone TAB* 9 MG PO SCH (08:39)
--- NOTE | 2017-09-06 13:13 | PN ---
Subjective - Subjective Service Type: [id number] Hosp care 15 min low complexity Subjective: Laura remains psychotic, pointing to several fashion magazines piled up on her windowsill and telling me they contain "pictures of me." She is taking medications but does not appear to be improving much. Staff indicates that her synthroid was not continued and she has documented history of hypothyroidism. Objective - Appearance Appearance: Obese Dysmorphic Features: No Hygiene: Dirty Grooming: Disheveled - Behavior Psychomotor Activities: Normal Exhibits Abnormal Movement: No - Attitude and Relatedness Attitude and Relatedness: Psychotically Related Eye Contact: Poor - Speech Quality: Pressured Latencies: Short Quantity: Copious - Mood Patient's Decription of Mood: "Good" - Affect Observed Affect: Expansive Affect Consistent with: Euphoria - Thought Process Patient's Thought Process: Loose Associations Thought Content: Yes Paranoid Ideation, No Passive Wish, No Suicidal Planning, No Homicidal Ideation - Sensorium Experiencing Hallucinations: Yes Type of Hallucinations: Visual: Yes, Auditory: Yes, Command: No - Level of Consciousness Level of Consciousness: Alert Orientation: Yes Intact, Yes Orientated to Time, Yes Orientated to Place, Yes Orientated to Person - Impulse Control Impulse Control: Poor - Insight and Judgement Insight and Judgement: Impaired - Group Participation Particating in Group Activities: No - Medication Management Medication Management Adherence: Yes Assessment - Assessment Merits Inpatient Hospitalization: For Immediate Safety, For Stabilization Inpatient DSM-IV Dx: 1. Delirium due to another medical condition (UTI). 2. Bipolar d/o. 3. Hypothyroidism Clinical Impression: 67 y.o. single, white female with chronic mental illness, non-adherent with outpatient treatment for past 2 years, brought in by EMS after activating her home emergency medical bracelet after a fall, subsequently found to be illogical , confused, delusional and unable to take care of herself in the community. Plan - Plan Treatment Plan: Name: LAURA CHAU Birthdate: 1950 [id number] The patient continues to display clear signs of psychotic thought process. Patient now on paliperidone 9mg daily and Depakote 1500mg daily. Resume synthroid at 88mcg PO qday. The patient's antibiotic course for her UTI has concluded. Continue inpatient level of care. Continued Medication Management: Start Medication Medications: Current Medications Acetaminophen (Tylenol Tab*) 650 mg PO Q4H PRN PRN Reason: PAIN,TEMP>101 Last Admin: 09/06/17 12:46 Dose: 650 mg Al Hydrox/Mg Hydrox/Simethicone (Maalox Plus*) 30 ml PO Q4H PRN PRN Reason: INDIGESTION Last Admin: 09/06/17 12:46 Dose: 30 ml Divalproex Sodium (Depakote Er Tab(*)) 1,500 mg PO DAILY [facility] Last Admin: 09/06/17 08:38 Dose: 1,500 mg Haloperidol (Haldol Tab*) 5 mg PO Q6H PRN PRN Reason: AGITATION Levothyroxine Sodium (Synthroid Tab*) 88 mcg PO DAILY@0600 [facility] Lorazepam (Ativan Tab(*)) 1 mg PO Q6H PRN PRN Reason: AGITATION Meloxicam (Mobic(Nf)) 7.5 mg PO DAILY [facility] Last Admin: 09/06/17 08:38 Dose: 7.5 mg Multivitamins (Theragran Tab*) 1 tab PO DAILY [facility] Last Admin: 09/06/17 08:38 Dose: 1 tab Paliperidone (Invega Tab*) 9 mg PO DAILY [facility] Last Admin: 09/06/17 08:39 Dose: 9 mg Silver Sulfadiazine (Silvadine 1%*) 1 applic TOPICAL BID [facility] Last Admin: 09/06/17 08:39 Dose: 1 applic - Discharge Plan Discharge Plan: Inpatient Hospitalization Lab Results - Lab Results Lab Results: 09/04/17 09/05/17 09/05/17 14:18 08:14 08:14 Sodium 139 Potassium 4.0 Chloride 104 Carbon Dioxide 28 Anion Gap 7 BUN 13 Creatinine 0.79 Est GFR ( Amer) 93.6 Est GFR (Non-Af Amer) 72.8 BUN/Creatinine Ratio 16.5 Glucose 105 H Hemoglobin A1c 5.5 Calcium 9.1 Total Bilirubin 0.40 AST 27 ALT 21 Alkaline Phosphatase 60 Ammonia 38 Total Protein 6.5 Albumin 3.4 Globulin 3.1 Albumin/Globulin Ratio 1.1 Triglycerides 157 Cholesterol 165 LDL Cholesterol 92 HDL Cholesterol 42.1 Valproic Acid 96.0
[2017-09-07] MEDS: Levothyroxine TAB* 88 MCG TAB PO SCH (07:33)
[2017-09-07] MEDS: Silver Sulfadiazine 1%* 20 GM TOPICAL SCH ×3 (08:20→21:35)
[2017-09-07] MEDS: Al Hydrox/Mg Hydrox/Simet LIQ* 30 ML UDC PO PRN (10:10)
[2017-09-07] MEDS: Vitamin THERAPEUTIC TAB PO SCH (10:10)
[2017-09-07] MEDS: CMC:Meloxicam(NF) 7.5 MG TAB PO SCH (10:11)
[2017-09-07] MEDS: Divalproex ER TAB(*) 500 MG PO SCH (10:11)
[2017-09-07] MEDS: Paliperidone TAB* 9 MG PO SCH (10:13)
[2017-09-08] MEDS: Silver Sulfadiazine 1%* 20 GM TOPICAL SCH ×3 (03:23→22:25)
[2017-09-08] MEDS: Levothyroxine TAB* 88 MCG TAB PO SCH (06:10)
[2017-09-08] MEDS: Vitamin THERAPEUTIC TAB PO SCH (09:19)
[2017-09-08] MEDS: Divalproex ER TAB(*) 500 MG PO SCH (09:19)
[2017-09-08] MEDS: Paliperidone TAB* 9 MG PO SCH (09:19)
[2017-09-08] MEDS: CMC:Meloxicam(NF) 7.5 MG TAB PO SCH (09:20)
--- NOTE | 2017-09-08 14:23 | PN ---
Subjective - Subjective Service Type: 34484 Hosp care 15 min low complexity Subjective: Ivonne remains psychotic and delusional, despite her recent adherence with antipsychotic therapy. She informs me of her belief that she is still , despite the fact that she claims to be a virgin. "Just ask Dr. New, he knows. 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 "I just pull my little coffee pot along behind me." She is also highly somatic, complaining of abdominal pain. She is pleasant and good natured and denies SI or HI. Objective - Appearance Appearance: Obese Dysmorphic Features: No Hygiene: Normal Grooming: Fairly Well Kept - Behavior Psychomotor Activities: Normal Exhibits Abnormal Movement: No - Attitude and Relatedness Attitude and Relatedness: Psychotically Related Eye Contact: Fair - Speech Quality: Unpressured Latencies: Normal Quantity: Copious - Mood Patient's Decription of Mood: "Terrible" - Affect Observed Affect: Fair Affect Consistent with: Dysphoria - Thought Process Patient's Thought Process: Coherent, Loose Associations Thought Content: Yes Paranoid Ideation, No Passive Wish, No Suicidal Planning, No Homicidal Ideation - Sensorium Experiencing Hallucinations: Yes Type of Hallucinations: Visual: No, Auditory: Yes, Command: No - Level of Consciousness Level of Consciousness: Alert Orientation: Yes Intact, Yes Orientated to Time, Yes Orientated to Place, Yes Orientated to Person - Impulse Control Impulse Control: Poor - Insight and Judgement Insight and Judgement: Impaired - Group Participation Particating in Group Activities: No - Medication Management Medication Management Adherence: Yes Assessment - Assessment Merits Inpatient Hospitalization: For Immediate Safety, For Stabilization Inpatient DSM-IV Dx: Schizoaffective DO, Bipolar Type Clinical Impression: 67 y.o. single, white female with chronic mental illness, non-adherent with outpatient treatment for past 2 years, brought in by EMS after activating her home emergency medical bracelet after a fall, subsequently found to be illogical , confused, delusional and unable to take care of herself in the community. Plan - Plan Treatment Plan: Name: JULES CHAU Birthdate: 1950 [id number] The patient continues to display clear signs of psychotic thought process. Will increase paliperidone to 6mg PO BID and leave Depakote at 1500mg daily. Resume synthroid at 88mcg PO qday. The patient's antibiotic course for her UTI has concluded. Continue inpatient level of care. Continued Medication Management: Start Medication Medications: Current Medications Acetaminophen (Tylenol Tab*) 650 mg PO Q4H PRN PRN Reason: PAIN,TEMP>101 Last Admin: 09/06/17 12:46 Dose: 650 mg Al Hydrox/Mg Hydrox/Simethicone (Maalox Plus*) 30 ml PO Q4H PRN PRN Reason: INDIGESTION Last Admin: 09/07/17 10:10 Dose: 30 ml Divalproex Sodium (Depakote Er Tab(*)) 1,500 mg PO DAILY [facility] Last Admin: 09/08/17 09:19 Dose: 1,500 mg Haloperidol (Haldol Tab*) 5 mg PO Q6H PRN PRN Reason: AGITATION Levothyroxine Sodium (Synthroid Tab*) 88 mcg PO DAILY@0600 [facility] Last Admin: 09/08/17 06:10 Dose: 88 mcg Lorazepam (Ativan Tab(*)) 1 mg PO Q6H PRN PRN Reason: AGITATION Meloxicam (Mobic(Nf)) 7.5 mg PO DAILY [facility] Last Admin: 09/08/17 09:20 Dose: 7.5 mg Multivitamins (Theragran Tab*) 1 tab PO DAILY [facility] Last Admin: 09/08/17 09:19 Dose: 1 tab Paliperidone (Invega Tab*) 9 mg PO DAILY [facility] Last Admin: 09/08/17 09:19 Dose: 9 mg Silver Sulfadiazine (Silvadine 1%*) 1 applic TOPICAL BID [facility] Last Admin: 09/08/17 09:26 Dose: 1 applic - Discharge Plan Discharge Plan: Inpatient Hospitalization
[2017-09-08] MEDS: Acetaminophen TAB* 325 MG PO PRN (16:58)
[2017-09-08] MEDS: Paliperidone TAB* 3 MG TAB PO SCH (22:24)
[2017-09-09] MEDS: Acetaminophen TAB* 325 MG PO PRN ×3 (04:12→18:03)
[2017-09-09] MEDS: Levothyroxine TAB* 88 MCG TAB PO SCH (06:15)
[2017-09-09] MEDS: CMC:Meloxicam(NF) 7.5 MG TAB PO SCH (09:14)
[2017-09-09] MEDS: Divalproex ER TAB(*) 500 MG PO SCH (09:14)
[2017-09-09] MEDS: Paliperidone TAB* 3 MG TAB PO SCH ×2 (09:15→22:02)
[2017-09-09] MEDS: Vitamin THERAPEUTIC TAB PO SCH (09:15)
[2017-09-09] MEDS: Silver Sulfadiazine 1%* 20 GM TOPICAL SCH ×2 (09:16→22:06)
[2017-09-10] MEDS: Levothyroxine TAB* 88 MCG TAB PO SCH (07:08)
[2017-09-10] MEDS: Paliperidone TAB* 3 MG TAB PO SCH ×2 (08:25→20:50)
[2017-09-10] MEDS: Divalproex ER TAB(*) 500 MG PO SCH (08:25)
[2017-09-10] MEDS: Silver Sulfadiazine 1%* 20 GM TOPICAL SCH ×2 (08:26→20:50)
[2017-09-10] MEDS: CMC:Meloxicam(NF) 7.5 MG TAB PO SCH (08:26)
[2017-09-10] MEDS: Vitamin THERAPEUTIC TAB PO SCH (08:26)
[2017-09-10] MEDS: Al Hydrox/Mg Hydrox/Simet LIQ* 30 ML UDC PO PRN ×3 (08:27→22:04)
[2017-09-10] MEDS: Acetaminophen TAB* 325 MG PO PRN (11:18)
[2017-09-11] MEDS: CMC:Meloxicam(NF) 7.5 MG TAB PO SCH (08:37)
[2017-09-11] MEDS: Levothyroxine TAB* 88 MCG TAB PO SCH (08:37)
[2017-09-11] MEDS: Vitamin THERAPEUTIC TAB PO SCH (08:37)
[2017-09-11] MEDS: Divalproex ER TAB(*) 500 MG PO SCH (08:38)
[2017-09-11] MEDS: Paliperidone TAB* 3 MG TAB PO SCH ×2 (08:38→21:45)
[2017-09-11] MEDS: Silver Sulfadiazine 1%* 20 GM TOPICAL SCH ×2 (08:39→21:45)
[2017-09-11] MEDS: Acetaminophen TAB* 325 MG PO PRN ×2 (08:39→21:46)
[2017-09-11] MEDS: Al Hydrox/Mg Hydrox/Simet LIQ* 30 ML UDC PO PRN (08:39)
--- NOTE | 2017-09-11 12:29 | PN ---
Subjective - Subjective Service Type: 71801 Hosp care 15 min low complexity Subjective: The patient remains somatic, complaining of abdominal pain. Denies that she is and is less delusional than at start of hospital course. I spoke with her brother, Jaime Chau ([phone]), who indicates that the last time he saw her, about a month ago, she seemed at her baseline. He does indicate that the stomach pain complaints are typical and ongoing. He reports that Laura has a son in [place] and a daughter in [place] who are marginally involved, but he is the chief source of family support. Laura denies SI or HI. Objective - Appearance Appearance: Obese Dysmorphic Features: No Hygiene: Normal Grooming: Fairly Well Kept - Behavior Psychomotor Activities: Normal Exhibits Abnormal Movement: No - Attitude and Relatedness Attitude and Relatedness: Cooperative Eye Contact: Fair - Speech Quality: Unpressured Latencies: Normal Quantity: Appropriate - Mood Patient's Decription of Mood: "Terrible" - Affect Observed Affect: Constricted Affect Consistent with: Dysphoria - Thought Process Patient's Thought Process: Disorganized Thought Content: Yes Paranoid Ideation, No Passive Wish, No Suicidal Planning, No Homicidal Ideation - Sensorium Experiencing Hallucinations: No, Sensorium is Clear Type of Hallucinations: Visual: No, Auditory: No, Command: No - Level of Consciousness Level of Consciousness: Alert Orientation: Yes Intact, Yes Orientated to Time, Yes Orientated to Place, Yes Orientated to Person - Insight and Judgement Insight and Judgement: Fair - Group Participation Particating in Group Activities: No - Medication Management Medication Management Adherence: Yes Assessment - Assessment Merits Inpatient Hospitalization: For Immediate Safety, For Stabilization Inpatient DSM-IV Dx: Schizoaffective DO, Bipolar Type Clinical Impression: 67 y.o. single, white female with chronic mental illness, non-adherent with outpatient treatment for past 2 years, brought in by EMS after activating her home emergency medical bracelet after a fall, subsequently found to be illogical , confused, delusional and unable to take care of herself in the community. Plan - Plan Treatment Plan: Name: LAURA CHAU Birthdate: 1950 [id number] The patient continues to display clear signs of psychotic thought process despite treatment with paliperidone 6mg PO BID and Depakote 1500mg daily. Resume synthroid at 88mcg PO qday. Start omeprazole 20mg PO qday for possible gastritis. Will consult Dr. New, who is her outpatient primary care provider, on her abdominal pain. The patient's antibiotic course for her UTI has concluded and we will recheck a U/A. Continue inpatient level of care. Continued Medication Management: Continue Outpt Medication Medications: Current Medications Acetaminophen (Tylenol Tab*) 650 mg PO Q4H PRN PRN Reason: PAIN,TEMP>101 Last Admin: 09/11/17 08:39 Dose: 650 mg Al Hydrox/Mg Hydrox/Simethicone (Maalox Plus*) 30 ml PO Q4H PRN PRN Reason: INDIGESTION Last Admin: 09/11/17 08:39 Dose: 30 ml Divalproex Sodium (Depakote Er Tab(*)) 1,500 mg PO DAILY [facility] Last Admin: 09/11/17 08:38 Dose: 1,500 mg Haloperidol (Haldol Tab*) 5 mg PO Q6H PRN PRN Reason: AGITATION Levothyroxine Sodium (Synthroid Tab*) 88 mcg PO DAILY@0600 [facility] Last Admin: 09/11/17 08:37 Dose: 88 mcg Lorazepam (Ativan Tab(*)) 1 mg PO Q6H PRN PRN Reason: AGITATION Meloxicam (Mobic(Nf)) 7.5 mg PO DAILY [facility] Last Admin: 09/11/17 08:37 Dose: 7.5 mg Multivitamins (Theragran Tab*) 1 tab PO DAILY [facility] Last Admin: 09/11/17 08:37 Dose: 1 tab Paliperidone (Invega Tab*) 6 mg PO BID [facility] Last Admin: 09/11/17 08:38 Dose: 6 mg Silver Sulfadiazine (Silvadine 1%*) 1 applic TOPICAL BID [facility] Last Admin: 09/11/17 08:39 Dose: 1 applic - Discharge Plan Discharge Plan: Inpatient Hospitalization
[2017-09-11 14:19] LABS: Urine Bacteria 3+ (Absent); Urine Bilirubin Negative (Negative); Urine Glucose Negative (Negative); Urine Nitrite Negative (Negative)
[2017-09-12] MEDS: Levothyroxine TAB* 88 MCG TAB PO SCH (08:28)
[2017-09-12] MEDS: Vitamin THERAPEUTIC TAB PO SCH (08:28)
[2017-09-12] MEDS: CMC:Meloxicam(NF) 7.5 MG TAB PO SCH (08:28)
[2017-09-12] MEDS: Divalproex ER TAB(*) 500 MG PO SCH (08:28)
[2017-09-12] MEDS: Omeprazole CAP* 20 MG PO SCH (08:28)
[2017-09-12] MEDS: Paliperidone TAB* 3 MG TAB PO SCH ×2 (08:28→21:14)
[2017-09-12] MEDS: Acetaminophen TAB* 325 MG PO PRN (08:29)
[2017-09-12] MEDS: Al Hydrox/Mg Hydrox/Simet LIQ* 30 ML UDC PO PRN (08:35)
[2017-09-12] MEDS: Silver Sulfadiazine 1%* 20 GM TOPICAL SCH ×2 (08:37→21:17)
--- NOTE | 2017-09-12 11:08 | PN ---
Subjective - Subjective Service Type: 82902 Hosp care 15 min low complexity Subjective: Patient better organized today. Still c/o abdominal pain. "It does feel like I 'm even though I know I'm not." The results of her U/A indicate continued E. coli infection, despite a 3-day course of Keflex. I called the hospitalist service and Dr. Kimberley Reed recommended a 7-day trial of Bactrim DSBharat Sanchez is agreeable with this. I spoke with Laura Leigh's outpatient psychiatrist, who indicated that they have been filling her meds over the phone but have not been able to convince her to come in for the past 2 years. The patient's brother, Jaime, visited her on the unit yesterday and I left a message with him to follow up on how that visit went. The patient has stated that Dr. Sunday New is her outpatient provider, however, a call to his outpatient offices indicates that they have no record of her. Objective - Appearance Appearance: Obese Dysmorphic Features: No Hygiene: Normal Grooming: Fairly Well Kept - Behavior Psychomotor Activities: Normal Exhibits Abnormal Movement: No - Attitude and Relatedness Attitude and Relatedness: Cooperative Eye Contact: Fair - Speech Quality: Unpressured Latencies: Normal Quantity: Appropriate - Mood Patient's Decription of Mood: "Okay" - Affect Observed Affect: Fair Affect Consistent with: Euthymia - Thought Process Patient's Thought Process: Coherent Thought Content: Yes Paranoid Ideation, No Passive Wish, No Suicidal Planning, No Homicidal Ideation - Sensorium Experiencing Hallucinations: No, Sensorium is Clear Type of Hallucinations: Visual: No, Auditory: No, Command: No - Level of Consciousness Level of Consciousness: Alert Orientation: Yes Intact, Yes Orientated to Time, Yes Orientated to Place, Yes Orientated to Person - Impulse Control Impulse Control: Tenuous - Insight and Judgement Insight and Judgement: Fair - Group Participation Particating in Group Activities: No - Medication Management Medication Management Adherence: Yes Assessment - Assessment Merits Inpatient Hospitalization: For Immediate Safety, For Stabilization Inpatient DSM-IV Dx: Schizoaffective DO, Bipolar Type Clinical Impression: 67 y.o. single, white female with chronic mental illness, non-adherent with outpatient treatment for past 2 years, brought in by EMS after activating her home emergency medical bracelet after a fall, subsequently found to be illogical , confused, delusional and unable to take care of herself in the community. Plan - Plan Treatment Plan: Name: LAURA CHAU Birthdate: 1950 [id number] The patient is currently on a course of paliperidone 6mg PO BID and Depakote 1500mg daily. We have resumed synthroid at 88mcg PO qday and started omeprazole 20mg PO qday for possible gastritis. We will start Bactrim DS twice daily times 7 days for UTI. She needs a new primary care provider. Continue inpatient level of care. Continued Medication Management: Continue Outpt Medication Medications: Current Medications Acetaminophen (Tylenol Tab*) 650 mg PO Q4H PRN PRN Reason: PAIN,TEMP>101 Last Admin: 09/12/17 08:29 Dose: 650 mg Al Hydrox/Mg Hydrox/Simethicone (Maalox Plus*) 30 ml PO Q4H PRN PRN Reason: INDIGESTION Last Admin: 09/12/17 08:35 Dose: 30 ml Divalproex Sodium (Depakote Er Tab(*)) 1,500 mg PO DAILY [facility] Last Admin: 09/12/17 08:28 Dose: 1,500 mg Haloperidol (Haldol Tab*) 5 mg PO Q6H PRN PRN Reason: AGITATION Levothyroxine Sodium (Synthroid Tab*) 88 mcg PO DAILY@0600 [facility] Last Admin: 09/12/17 08:28 Dose: 88 mcg Lorazepam (Ativan Tab(*)) 1 mg PO Q6H PRN PRN Reason: AGITATION Meloxicam (Mobic(Nf)) 7.5 mg PO DAILY [facility] Last Admin: 09/12/17 08:28 Dose: 7.5 mg Multivitamins (Theragran Tab*) 1 tab PO DAILY [facility] Last Admin: 09/12/17 08:28 Dose: 1 tab Omeprazole (Prilosec Cap*) 20 mg PO 0600 [facility] Last Admin: 09/12/17 08:28 Dose: 20 mg Paliperidone (Invega Tab*) 6 mg PO BID [facility] Last Admin: 09/12/17 08:28 Dose: 6 mg Silver Sulfadiazine (Silvadine 1%*) 1 applic TOPICAL BID [facility] Last Admin: 09/12/17 08:37 Dose: 1 applic Trimethoprim/Sulfamethoxazole (Bactrim Ds 800/160 Tab*) 1 tab PO BID [facility] - Discharge Plan Discharge Plan: Inpatient Hospitalization Lab Results - Lab Results Lab Results: 09/11/17 13:05 Urine Color Dianelys Urine Appearance Turbid Urine pH 6.0 Ur Specific [place] 1.026 Urine Protein Negative Urine Ketones Trace H Urine Blood 3+ H Urine Nitrate Negative Urine Bilirubin Negative Urine Urobilinogen Positive H Ur Leukocyte Esterase 3+ H Urine WBC (Auto) 3+(>20/hpf) H Urine RBC (Auto) 3+(>10/hpf) H Ur Squamous Epith Cells Present H Urine Bacteria 3+ H Urine Glucose Negative
[2017-09-12] MEDS: Sulfamethox/Trimethoprim DS 800/160* TAB PO SCH ×2 (12:50→21:13)
[2017-09-13] MEDS: Omeprazole CAP* 20 MG PO SCH (06:00)
[2017-09-13] MEDS: Levothyroxine TAB* 88 MCG TAB PO SCH (06:00)
[2017-09-13] MEDS: Vitamin THERAPEUTIC TAB PO SCH (07:32)
[2017-09-13] MEDS: CMC:Meloxicam(NF) 7.5 MG TAB PO SCH (07:32)
[2017-09-13] MEDS: Al Hydrox/Mg Hydrox/Simet LIQ* 30 ML UDC PO PRN ×2 (07:32→20:52)
[2017-09-13] MEDS: Divalproex ER TAB(*) 500 MG PO SCH (07:32)
[2017-09-13] MEDS: Paliperidone TAB* 3 MG TAB PO SCH ×2 (07:32→20:50)
[2017-09-13] MEDS: Sulfamethox/Trimethoprim DS 800/160* TAB PO SCH ×2 (07:32→20:50)
[2017-09-13] MEDS: Silver Sulfadiazine 1%* 20 GM TOPICAL SCH ×2 (07:35→20:51)
[2017-09-13] MEDS: Acetaminophen TAB* 325 MG PO PRN (10:45)
--- NOTE | 2017-09-13 14:34 | PN ---
Subjective - Subjective Date of Service: 09/13/17 Service Type: 29910 Hosp care 15 min low complexity Subjective: The patient is better organized today and is able to tell me that she has not seen Dr. New for primary care purposes for years. Most recently she has been seeing Dr. Nii Buck in [place], however, she prefers not to continue with this clinician and would like to be referred to someone new. She declines the offer of an abdominal CT for belly pain, stating that this is now feeling better. She denies SI or HI. Objective - Appearance Appearance: Obese Dysmorphic Features: No Hygiene: Normal Grooming: Fairly Well Kept - Behavior Psychomotor Activities: Normal Exhibits Abnormal Movement: No - Attitude and Relatedness Attitude and Relatedness: Cooperative Eye Contact: Fair - Speech Quality: Unpressured Latencies: Normal Quantity: Terse - Mood Patient's Decription of Mood: "Okay" - Affect Observed Affect: Fair Affect Consistent with: Euthymia - Thought Process Patient's Thought Process: Coherent Thought Content: Yes Paranoid Ideation, No Passive Wish, No Suicidal Planning, No Homicidal Ideation - Sensorium Experiencing Hallucinations: No, Sensorium is Clear Type of Hallucinations: Visual: No, Auditory: No, Command: No - Level of Consciousness Level of Consciousness: Alert Orientation: Yes Intact, Yes Orientated to Time, Yes Orientated to Place, Yes Orientated to Person - Impulse Control Impulse Control: Tenuous - Insight and Judgement Insight and Judgement: Fair - Group Participation Particating in Group Activities: No - Medication Management Medication Management Adherence: Yes Assessment - Assessment Merits Inpatient Hospitalization: For Immediate Safety, For Stabilization Inpatient DSM-IV Dx: Schizoaffective DO, Bipolar Type Clinical Impression: 67 y.o. single, white female with chronic mental illness, non-adherent with outpatient treatment for past 2 years, brought in by EMS after activating her home emergency medical bracelet after a fall, subsequently found to be illogical , confused, delusional and unable to take care of herself in the community. Plan - Plan Treatment Plan: Name: JULES CHAU Birthdate: 1950 [id number] The patient is currently on a course of paliperidone 6mg PO BID and Depakote 1500mg daily. We have resumed synthroid at 88mcg PO qday and started omeprazole 20mg PO qday for possible gastritis. We will start Bactrim DS twice daily times 7 days for UTI. She needs a new primary care provider. Continue inpatient level of care. Continued Medication Management: Continue Outpt Medication Medications: Current Medications Acetaminophen (Tylenol Tab*) 650 mg PO Q4H PRN PRN Reason: PAIN,TEMP>101 Last Admin: 09/13/17 10:45 Dose: 650 mg Al Hydrox/Mg Hydrox/Simethicone (Maalox Plus*) 30 ml PO Q4H PRN PRN Reason: INDIGESTION Last Admin: 09/13/17 07:32 Dose: 30 ml Divalproex Sodium (Depakote Er Tab(*)) 1,500 mg PO DAILY [facility] Last Admin: 09/13/17 07:32 Dose: 1,500 mg Haloperidol (Haldol Tab*) 5 mg PO Q6H PRN PRN Reason: AGITATION Levothyroxine Sodium (Synthroid Tab*) 88 mcg PO DAILY@0600 [facility] Last Admin: 09/13/17 06:00 Dose: 88 mcg Lorazepam (Ativan Tab(*)) 1 mg PO Q6H PRN PRN Reason: AGITATION Meloxicam (Mobic(Nf)) 7.5 mg PO DAILY [facility] Last Admin: 09/13/17 07:32 Dose: 7.5 mg Multivitamins (Theragran Tab*) 1 tab PO DAILY [facility] Last Admin: 09/13/17 07:32 Dose: 1 tab Omeprazole (Prilosec Cap*) 20 mg PO 0600 [facility] Last Admin: 09/13/17 06:00 Dose: 20 mg Paliperidone (Invega Tab*) 6 mg PO BID [facility] Last Admin: 09/13/17 07:32 Dose: 6 mg Silver Sulfadiazine (Silvadine 1%*) 1 applic TOPICAL BID [facility] Last Admin: 09/13/17 07:35 Dose: 1 applic Trimethoprim/Sulfamethoxazole (Bactrim Ds 800/160 Tab*) 1 tab PO BID [facility] Last Admin: 09/13/17 07:32 Dose: 1 tab - Discharge Plan Discharge Plan: Inpatient Hospitalization
[2017-09-14] MEDS: Omeprazole CAP* 20 MG PO SCH (06:00)
[2017-09-14] MEDS: Levothyroxine TAB* 88 MCG TAB PO SCH (06:00)
[2017-09-14] MEDS: Vitamin THERAPEUTIC TAB PO SCH (08:42)
[2017-09-14] MEDS: Divalproex ER TAB(*) 500 MG PO SCH (08:42)
[2017-09-14] MEDS: CMC:Meloxicam(NF) 7.5 MG TAB PO SCH (08:42)
[2017-09-14] MEDS: Sulfamethox/Trimethoprim DS 800/160* TAB PO SCH ×2 (08:42→20:30)
[2017-09-14] MEDS: Paliperidone TAB* 3 MG TAB PO SCH ×2 (08:42→20:30)
[2017-09-14] MEDS: Silver Sulfadiazine 1%* 20 GM TOPICAL SCH ×2 (08:42→20:30)
[2017-09-14] MEDS: Al Hydrox/Mg Hydrox/Simet LIQ* 30 ML UDC PO PRN ×2 (08:49→20:31)
[2017-09-14] MEDS: Acetaminophen TAB* 325 MG PO PRN (20:32)
[2017-09-15] MEDS: Acetaminophen TAB* 325 MG PO PRN (08:46)
[2017-09-15] MEDS: CMC:Meloxicam(NF) 7.5 MG TAB PO SCH (08:46)
[2017-09-15] MEDS: Divalproex ER TAB(*) 500 MG PO SCH (08:47)
[2017-09-15] MEDS: Levothyroxine TAB* 88 MCG TAB PO SCH (08:47)
[2017-09-15] MEDS: Paliperidone TAB* 3 MG TAB PO SCH ×2 (08:47→21:38)
[2017-09-15] MEDS: Sulfamethox/Trimethoprim DS 800/160* TAB PO SCH ×2 (08:47→21:38)
[2017-09-15] MEDS: Omeprazole CAP* 20 MG PO SCH (08:47)
[2017-09-15] MEDS: Vitamin THERAPEUTIC TAB PO SCH (08:47)
[2017-09-15] MEDS: Silver Sulfadiazine 1%* 20 GM TOPICAL SCH ×2 (08:48→21:38)
[2017-09-15] MEDS: Al Hydrox/Mg Hydrox/Simet LIQ* 30 ML UDC PO PRN ×2 (08:59→21:40)
--- NOTE | 2017-09-15 15:55 | PN ---
Subjective - Subjective Date of Service: 09/15/17 Service Type: 77728 Hosp care 15 min low complexity Subjective: Laura continues to be disorganized. She's complaining of foul smelling discharge coming out of her body. "It smells like bowel movement but it's coming out of the front and the back of me" she states, pointing to her pelvic area and buttocks. She continues to c/o abdominal and pelvic discomfort. Today she agrees to a CT exam of her belly. I spoke with her brother Jaime Chau ([phone]) who continues to feel that she is not back to her baseline in terms of psychological functioning. He is supportive of Laura receiving a higher level of services in the community after discharge. Objective - Appearance Appearance: Obese Dysmorphic Features: No Hygiene: Normal Grooming: Fairly Well Kept - Behavior Psychomotor Activities: Normal Exhibits Abnormal Movement: No - Attitude and Relatedness Attitude and Relatedness: Cooperative Eye Contact: Fair - Speech Quality: Unpressured Latencies: Normal Quantity: Appropriate - Mood Patient's Decription of Mood: "Okay" - Affect Observed Affect: Fair Affect Consistent with: Euthymia - Thought Process Patient's Thought Process: Disorganized Thought Content: Yes Paranoid Ideation, No Passive Wish, No Suicidal Planning, No Homicidal Ideation - Sensorium Experiencing Hallucinations: No, Sensorium is Clear Type of Hallucinations: Visual: No, Auditory: No, Command: No - Level of Consciousness Level of Consciousness: Alert Orientation: Yes Intact, Yes Orientated to Time, Yes Orientated to Place, Yes Orientated to Person - Impulse Control Impulse Control: Tenuous - Insight and Judgement Insight and Judgement: Fair - Group Participation Particating in Group Activities: No - Medication Management Medication Management Adherence: Yes Assessment - Assessment Merits Inpatient Hospitalization: For Immediate Safety, For Stabilization Inpatient DSM-IV Dx: Schizoaffective DO, Bipolar Type Clinical Impression: 67 y.o. single, white female with chronic mental illness, non-adherent with outpatient treatment for past 2 years, brought in by EMS after activating her home emergency medical bracelet after a fall, subsequently found to be illogical , confused, delusional and unable to take care of herself in the community. Plan - Plan Treatment Plan: Name: LAURA CHAU Birthdate: 1950 [id number] The patient is currently on a course of paliperidone 6mg PO BID and Depakote 1500mg daily. We have resumed synthroid at 88mcg PO qday and started omeprazole 20mg PO qday for possible gastritis, and Bactrim DS twice daily, times 7 days, for UTI. She needs a new primary care provider and would benefit from ACT level services after discharge. Continue inpatient level of care. Continued Medication Management: Continue Outpt Medication Medications: Current Medications Acetaminophen (Tylenol Tab*) 650 mg PO Q4H PRN PRN Reason: PAIN,TEMP>101 Last Admin: 09/15/17 08:46 Dose: 650 mg Al Hydrox/Mg Hydrox/Simethicone (Maalox Plus*) 30 ml PO Q4H PRN PRN Reason: INDIGESTION Last Admin: 09/15/17 08:59 Dose: 30 ml Divalproex Sodium (Depakote Er Tab(*)) 1,500 mg PO DAILY [facility] Last Admin: 09/15/17 08:47 Dose: 1,500 mg Haloperidol (Haldol Tab*) 5 mg PO Q6H PRN PRN Reason: AGITATION Levothyroxine Sodium (Synthroid Tab*) 88 mcg PO DAILY@0600 [facility] Last Admin: 09/15/17 08:47 Dose: 88 mcg Lorazepam (Ativan Tab(*)) 1 mg PO Q6H PRN PRN Reason: AGITATION Meloxicam (Mobic(Nf)) 7.5 mg PO DAILY [facility] Last Admin: 09/15/17 08:46 Dose: 7.5 mg Multivitamins (Theragran Tab*) 1 tab PO DAILY [facility] Last Admin: 09/15/17 08:47 Dose: 1 tab Omeprazole (Prilosec Cap*) 20 mg PO 0600 [facility] Last Admin: 09/15/17 08:47 Dose: 20 mg Paliperidone (Invega Tab*) 6 mg PO BID [facility] Last Admin: 09/15/17 08:47 Dose: 6 mg Silver Sulfadiazine (Silvadine 1%*) 1 applic TOPICAL BID [facility] Last Admin: 09/15/17 08:48 Dose: 1 applic Trimethoprim/Sulfamethoxazole (Bactrim Ds 800/160 Tab*) 1 tab PO BID [facility] Last Admin: 09/15/17 08:47 Dose: 1 tab - Discharge Plan Discharge Plan: Inpatient Hospitalization
[2017-09-16] MEDS: Levothyroxine TAB* 88 MCG TAB PO SCH (05:55)
[2017-09-16] MEDS: Omeprazole CAP* 20 MG PO SCH (05:55)
[2017-09-16] MEDS: Paliperidone TAB* 3 MG TAB PO SCH ×2 (08:23→21:02)
[2017-09-16] MEDS: Vitamin THERAPEUTIC TAB PO SCH (08:24)
[2017-09-16] MEDS: Sulfamethox/Trimethoprim DS 800/160* TAB PO SCH ×2 (08:24→21:02)
[2017-09-16] MEDS: CMC:Meloxicam(NF) 7.5 MG TAB PO SCH (08:24)
[2017-09-16] MEDS: Divalproex ER TAB(*) 500 MG PO SCH (08:24)
[2017-09-16] MEDS: Al Hydrox/Mg Hydrox/Simet LIQ* 30 ML UDC PO PRN ×3 (08:25→21:07)
[2017-09-16] MEDS: Silver Sulfadiazine 1%* 20 GM TOPICAL SCH ×2 (08:26→21:02)
[2017-09-16 09:36] LABS: TSH (Thyroid Stimulating Horm) 4.31 mcIU/mL (0.34-5.60)
[2017-09-16 09:38] LABS: Free T4 0.87 ng/dL (0.61-1.12)
[2017-09-16] MEDS: Acetaminophen TAB* 325 MG PO PRN ×2 (16:46→21:05)
[2017-09-17] MEDS: Omeprazole CAP* 20 MG PO SCH (06:00)
[2017-09-17] MEDS: Levothyroxine TAB* 88 MCG TAB PO SCH (06:00)
[2017-09-17] MEDS: Paliperidone TAB* 3 MG TAB PO SCH ×2 (09:10→20:50)
[2017-09-17] MEDS: CMC:Meloxicam(NF) 7.5 MG TAB PO SCH (09:10)
[2017-09-17] MEDS: Divalproex ER TAB(*) 500 MG PO SCH (09:10)
[2017-09-17] MEDS: Sulfamethox/Trimethoprim DS 800/160* TAB PO SCH ×2 (09:11→20:51)
[2017-09-17] MEDS: Silver Sulfadiazine 1%* 20 GM TOPICAL SCH ×2 (09:11→20:54)
[2017-09-17] MEDS: Vitamin THERAPEUTIC TAB PO SCH (09:11)
[2017-09-17] MEDS: Acetaminophen TAB* 325 MG PO PRN ×2 (09:38→17:26)
[2017-09-17] MEDS: Al Hydrox/Mg Hydrox/Simet LIQ* 30 ML UDC PO PRN ×2 (09:39→17:26)
[2017-09-18] MEDS: Levothyroxine TAB* 88 MCG TAB PO SCH (06:00)
[2017-09-18] MEDS: Omeprazole CAP* 20 MG PO SCH (06:00)
[2017-09-18] MEDS: Divalproex ER TAB(*) 500 MG PO SCH (08:29)
[2017-09-18] MEDS: Sulfamethox/Trimethoprim DS 800/160* TAB PO SCH ×2 (08:29→21:04)
[2017-09-18] MEDS: Vitamin THERAPEUTIC TAB PO SCH (08:29)
[2017-09-18] MEDS: CMC:Meloxicam(NF) 7.5 MG TAB PO SCH (08:29)
[2017-09-18] MEDS: Paliperidone TAB* 3 MG TAB PO SCH ×2 (08:30→21:04)
[2017-09-18] MEDS: Al Hydrox/Mg Hydrox/Simet LIQ* 30 ML UDC PO PRN ×2 (08:30→21:06)
[2017-09-18] MEDS: Acetaminophen TAB* 325 MG PO PRN ×2 (08:31→21:06)
[2017-09-18] MEDS: Silver Sulfadiazine 1%* 20 GM TOPICAL SCH ×2 (08:32→22:32)
--- NOTE | 2017-09-18 15:30 | PN ---
Subjective - Subjective Date of Service: 09/18/17 Service Type: 90786 Hosp care 15 min low complexity Subjective: The patient remains odd and anxious at times but behaviorally under control. She continues to be somatic, complaining of abdominal pain, however, she has refused a scheduled abdominal CT for the second time in this hospitalization. She states that she isn't ready for discharge this Monday, saying "I don't think I'm ready to go home until I feel physically better." She denies SI or HI. She does not attend groups. Objective - Appearance Appearance: Obese Dysmorphic Features: No Hygiene: Normal Grooming: Well Kept - Behavior Psychomotor Activities: Normal Exhibits Abnormal Movement: No - Attitude and Relatedness Attitude and Relatedness: Child Like Eye Contact: Fair - Speech Quality: Unpressured Latencies: Normal Quantity: Appropriate - Mood Patient's Decription of Mood: "Okay" - Affect Observed Affect: Good Affect Consistent with: Euthymia - Thought Process Patient's Thought Process: Coherent, Circumstantial Thought Content: Yes Paranoid Ideation, No Passive Wish, No Suicidal Planning, No Homicidal Ideation - Sensorium Experiencing Hallucinations: No, Sensorium is Clear Type of Hallucinations: Visual: No, Auditory: No, Command: No - Level of Consciousness Level of Consciousness: Alert Orientation: Yes Intact, Yes Orientated to Time, Yes Orientated to Place, Yes Orientated to Person - Impulse Control Impulse Control: Poor - Insight and Judgement Insight and Judgement: Impaired - Group Participation Particating in Group Activities: No - Medication Management Medication Management Adherence: Yes Assessment - Assessment Merits Inpatient Hospitalization: Consolidate Improvements, Pending Safe DC Plan Inpatient DSM-IV Dx: Schizoaffective DO, Bipolar Type Clinical Impression: 67 y.o. single, white female with chronic mental illness, non-adherent with outpatient treatment for past 2 years, brought in by EMS after activating her home emergency medical bracelet after a fall, subsequently found to be illogical , confused, delusional and unable to take care of herself in the community. Plan - Plan Treatment Plan: Name: JULES CHAU Birthdate: 1950 [id number] The patient is currently on a course of paliperidone 6mg PO BID and Depakote 1500mg daily. We have resumed synthroid at 88mcg PO qday and started omeprazole 20mg PO qday for possible gastritis, and Bactrim DS twice daily, times 7 days, for UTI. She needs a new primary care provider and would benefit from ACT level services after discharge. Continue inpatient level of care. Continued Medication Management: Start Medication Medications: Current Medications Acetaminophen (Tylenol Tab*) 650 mg PO Q4H PRN PRN Reason: PAIN,TEMP>101 Last Admin: 09/18/17 08:31 Dose: 650 mg Al Hydrox/Mg Hydrox/Simethicone (Maalox Plus*) 30 ml PO Q4H PRN PRN Reason: INDIGESTION Last Admin: 09/18/17 08:30 Dose: 30 ml Divalproex Sodium (Depakote Er Tab(*)) 1,500 mg PO DAILY [facility] Last Admin: 09/18/17 08:29 Dose: 1,500 mg Haloperidol (Haldol Tab*) 5 mg PO Q6H PRN PRN Reason: AGITATION Levothyroxine Sodium (Synthroid Tab*) 88 mcg PO DAILY@0600 [facility] Last Admin: 09/18/17 06:00 Dose: 88 mcg Lorazepam (Ativan Tab(*)) 1 mg PO Q6H PRN PRN Reason: AGITATION Meloxicam (Mobic(Nf)) 7.5 mg PO DAILY [facility] Last Admin: 09/18/17 08:29 Dose: 7.5 mg Multivitamins (Theragran Tab*) 1 tab PO DAILY [facility] Last Admin: 09/18/17 08:29 Dose: 1 tab Omeprazole (Prilosec Cap*) 20 mg PO 0600 [facility] Last Admin: 09/18/17 06:00 Dose: 20 mg Paliperidone (Invega Tab*) 6 mg PO BID [facility] Last Admin: 09/18/17 08:30 Dose: 6 mg Silver Sulfadiazine (Silvadine 1%*) 1 applic TOPICAL BID [facility] Last Admin: 09/18/17 08:32 Dose: 1 applic Trimethoprim/Sulfamethoxazole (Bactrim Ds 800/160 Tab*) 1 tab PO BID [facility] Last Admin: 09/18/17 08:29 Dose: 1 tab - Discharge Plan Discharge Plan: Inpatient Hospitalization
[2017-09-19] MEDS: Levothyroxine TAB* 88 MCG TAB PO SCH (08:44)
[2017-09-19] MEDS: CMC:Meloxicam(NF) 7.5 MG TAB PO SCH (08:45)
[2017-09-19] MEDS: Vitamin THERAPEUTIC TAB PO SCH (08:45)
[2017-09-19] MEDS: Divalproex ER TAB(*) 500 MG PO SCH (08:46)
[2017-09-19] MEDS: Omeprazole CAP* 20 MG PO SCH (08:47)
[2017-09-19] MEDS: Paliperidone TAB* 3 MG TAB PO SCH (08:47)
[2017-09-19] MEDS: Acetaminophen TAB* 325 MG PO PRN (08:47)
[2017-09-19] MEDS: Sulfamethox/Trimethoprim DS 800/160* TAB PO SCH (08:48)
[2017-09-19] MEDS: Silver Sulfadiazine 1%* 20 GM TOPICAL SCH (08:48)
[2017-09-19] MEDS: Al Hydrox/Mg Hydrox/Simet LIQ* 30 ML UDC PO PRN (08:48)
[2017-09-19 10:40] VITALS: BP 130/59
--- NOTE | 2017-09-19 12:23 | RAD ---
CLINICAL HISTORY: Abdominal pain COMPARISON: June 30, 2006 TECHNIQUE: Multiple contiguous axial CT scans were obtained of the abdomen and pelvis, without intravenous contrast enhancement. Coronal and sagittal multiplanar reformations are submitted for review. Oral contrast was not administered. FINDINGS: The study is limited by the lack of intravenous contrast. This limits evaluation of the solid organs and vasculature. LUNG BASES: The lung bases are clear. LIVER: The liver is normal in shape, size, contour, and attenuation. BILE DUCTS: There is no intrahepatic or extrahepatic biliary dilatation. GALLBLADDER: The gallbladder is normal, without pericholecystic inflammatory change. PANCREAS: The pancreas is normal, without mass or ductal dilatation. SPLEEN: Normal in size and appearance. UPPER GI TRACT: Evaluation of the gastrointestinal tract is limited by incomplete gastric distention. The upper GI tract is unremarkable. SMALL BOWEL AND MESENTERY: The small bowel is normal in contour, course, and caliber. There is no obstruction or dilatation. COLON: There is extensive diverticulosis of the sigmoid colon, with a small amount of extraluminal gas, best seen on axial image 73. There is fluid and inflammatory change along the sigmoid colon. ADRENALS: Normal bilaterally. KIDNEYS: There is moderate pelviectasis and hydroureter on the right. There is no appreciable nephrolithiasis. BLADDER: The bladder is smooth in contour. PELVIC ORGANS: The pelvic organs are not visualized. AORTA: There is calcific atherosclerotic disease of the abdominal aorta and its branches, without aneurysmal dilatation IVC: Unremarkable LYMPH NODES: There is no lymphadenopathy by size criteria. ABDOMINAL WALL: There is no evidence for abdominal wall hernia. BONES AND SOFT TISSUES: Degenerative changes are noted OTHER: None IMPRESSION: 1. THERE IS EXTENSIVE DIVERTICULITIS ALONG THE SIGMOID COLON WITH LOCAL EXTRALUMINAL GAS CONSISTENT WITH PERFORATION. 2. THERE IS RIGHT-SIDED HYDRONEPHROSIS WITHOUT NEPHROLITHIASIS, LIKELY SECONDARY TO THE PELVIC INFLAMMATORY CHANGE. PRELIMINARY FINDINGS WERE DISCUSSED WITH DR. SHEETS AT APPROXIMATELY 12:19 PM ON SEPTEMBER 19, 2017.
--- NOTE | 2017-09-19 17:02 | CONSULT ---
Subjective Date of Service: 09/19/17 Family History: Findings - Unable to obtain Social History: Findings - Unable to obtain Past Medical History: Findings - Unable to obtain Objective Active Medications: Acetaminophen (Tylenol Tab*) 650 mg PO Q4H PRN PRN Reason: PAIN,TEMP>101 Last Admin: 09/19/17 08:47 Dose: 650 mg Al Hydrox/Mg Hydrox/Simethicone (Maalox Plus*) 30 ml PO Q4H PRN PRN Reason: INDIGESTION Last Admin: 09/19/17 08:48 Dose: 30 ml Divalproex Sodium (Depakote Er Tab(*)) 1,500 mg PO DAILY [facility] Last Admin: 09/19/17 08:46 Dose: 1,500 mg Haloperidol (Haldol Tab*) 5 mg PO Q6H PRN PRN Reason: AGITATION Levothyroxine Sodium (Synthroid Tab*) 88 mcg PO DAILY@0600 [facility] Last Admin: 09/19/17 08:44 Dose: 88 mcg Lorazepam (Ativan Tab(*)) 1 mg PO Q6H PRN PRN Reason: AGITATION Meloxicam (Mobic(Nf)) 7.5 mg PO DAILY [facility] Last Admin: 09/19/17 08:45 Dose: 7.5 mg Multivitamins (Theragran Tab*) 1 tab PO DAILY [facility] Last Admin: 09/19/17 08:45 Dose: 1 tab Omeprazole (Prilosec Cap*) 20 mg PO 0600 [facility] Last Admin: 09/19/17 08:47 Dose: 20 mg Paliperidone (Invega Tab*) 6 mg PO BID [facility] Last Admin: 09/19/17 08:47 Dose: 6 mg Silver Sulfadiazine (Silvadine 1%*) 1 applic TOPICAL BID [facility] Last Admin: 09/19/17 08:48 Dose: 1 applic Trimethoprim/Sulfamethoxazole (Bactrim Ds 800/160 Tab*) 1 tab PO BID [facility] Last Admin: 09/19/17 08:48 Dose: 1 tab Vital Signs - 8 hr 09/19/17 10:44 Respiratory 16 Rate Oxygen Devices in Use Now: None Result Diagrams: 08/25/17 11:57 09/05/17 08:14 Microbiology and Other Data: Microbiology 09/11/17 13:05 Urine Culture - Final Urine Streptococcus Gallolyticus Normal Khadra Assessment/Plan - Billing 67 yo F with hx of HTN and reported history of bipolar disorder, paranoid schizophrenia apparently off of psych meds presents with confusion/delusions. I think patient's problems are mostly due to psych issues and medication non- compliance. She has a mildly abnormal UA and she does endorse dysuria although answers in the affirmative to most ROS questions. To be on the safe side will treat with PO Keflex x 3 days. I do not think she requires a medical admission and in fact I don't think she would do well on a medical floor. Recommend Psych evaluation and consideration for admission to [facility].
--- NOTE | 2017-09-19 17:10 | CONSULT ---
Subjective Date of Service: 09/19/17 Interval History: Patient states she has had abdominal pain for months, worse in past 2 weeks and worse still this AM Family History: Findings - Unable to obtain Social History: Findings - SDM's are her son Víctor Tucker and daughter Ingrid Patton. Quit smoking 25 yrs ago. No alcohol abuse. Lives alone in [facility] Past Medical History: Findings - Unable to obtain Review of Systems - Review of Systems Constitutional Symptoms: Positive: Weight Loss - ? lost 120 lbs in past 2 yrs. Dermatology: Positive: Normal HEENT: Positive: Normal Eyes: Positive: Normal Thyroid: Positive: Normal Pulmonary: Positive: Normal Objective Active Medications: Acetaminophen (Tylenol Tab*) 650 mg PO Q4H PRN PRN Reason: PAIN,TEMP>101 Last Admin: 09/19/17 08:47 Dose: 650 mg Al Hydrox/Mg Hydrox/Simethicone (Maalox Plus*) 30 ml PO Q4H PRN PRN Reason: INDIGESTION Last Admin: 09/19/17 08:48 Dose: 30 ml Divalproex Sodium (Depakote Er Tab(*)) 1,[address] [facility] Last Admin: 09/19/17 08:46 Dose: 1,500 mg Haloperidol (Haldol Tab*) 5 mg PO Q6H PRN PRN Reason: AGITATION Levothyroxine Sodium (Synthroid Tab*) 88 mcg PO DAILY@0600 [facility] Last Admin: 09/19/17 08:44 Dose: 88 mcg Lorazepam (Ativan Tab(*)) 1 mg PO Q6H PRN PRN Reason: AGITATION Meloxicam (Mobic(Nf)) 7.[address] [facility] Last Admin: 09/19/17 08:45 Dose: 7.5 mg Multivitamins (Theragran Tab*) [address] [facility] Last Admin: 09/19/17 08:45 Dose: 1 tab Omeprazole (Prilosec Cap*) [address] [facility] Last Admin: 09/19/17 08:47 Dose: 20 mg Paliperidone (Invega Tab*) [address] [facility] Last Admin: 09/19/17 08:47 Dose: 6 mg Silver Sulfadiazine (Silvadine 1%*) [address] [facility] Last Admin: 09/19/17 08:48 Dose: 1 applic Trimethoprim/Sulfamethoxazole (Bactrim Ds 800/160 Tab*) 1 tab PO BID [facility] Last Admin: 09/19/17 08:48 Dose: 1 tab Vital Signs - 8 hr 09/19/17 10:44 Respiratory 16 Rate Oxygen Devices in Use Now: None Appearance: Alert, sitting on the edge of her bed in [facility]. In good spirits. Looks comfortable. Eyes: No Scleral Icterus Ears/Nose/Mouth/Throat: Clear Oropharnyx, Mucous Membranes Moist Neck: NL Appearance and Movements; NL JVP, No Thyroid Enlargement, Masses Respiratory: Symmetrical Chest Expansion and Respiratory Effort, Clear to Auscultation, Clear to Percussion Cardiovascular: NL Sounds; No Murmurs; No JVD, RRR, No Edema, - Abdominal: NL Sounds; No Tenderness; No Distention, No Hepatosplenomegaly, - Extremities: No Edema, No Clubbing, Cyanosis, - Neurological: Alert and Oriented x 3, NL Sensation Result Diagrams: 09/19/17 17:27 09/19/17 17:27 Microbiology and Other Data: Microbiology 09/11/17 13:05 Urine Culture - Final Urine Streptococcus Gallolyticus Normal Khadra Assessment/Plan - Billing 1.Extensive sigmoid diverticulitis with micro-perforation reported on CT ab/ pelvis 09/19/17. R hydro but no stone, likely related to pelvic inflammation. Unusual disconnect between benign PE and CT findings, possibly related to her psychiatric problems. My plan is to give IV antibiotics for 48 hrs and if stable discharge on oral antibiotics. Labs pending. 2 hypothyroidism. Continue levothyroxine.
[2017-09-19 17:50] LABS: Hematocrit 35 % (35-47); Hemoglobin 11.2 g/dl (12.0-16.0); Mean Corpuscular HGB Conc 32 g/dl (31-36); Mean Corpuscular Hemoglobin 25 pg (27-31); Mean Corpuscular Volume 79 fL (80-97); Mean Platelet Volume 7 um3 (7.4-10.4); Red Cell Distribution Width 19 % (10.5-15); White Blood Count 8.7 10^3/ul (3.5-10.8)
[2017-09-19] MEDS ORDERED: D5W 1/2 NS KCl 20 Meq 1000 ML* 1,000 ML IV SCH (18:00)
[2017-09-19] MEDS ORDERED: Ciprofloxacin 400MG IVPREMIX(* 400 MG/200 ML BAG IVPB SCH (18:00)
[2017-09-19 18:05] LABS: Albumin 3.1 g/dL (3.2-5.2); BUN/Creatinine Ratio 24.2 (8-20); Calcium 8.9 mg/dL (8.6-10.3); EGFR African American 79.5 (>60); EGFR Non-African American 61.9 (>60); Globulin 3.5 g/dL (2-4); Potassium 4.4 mmol/L (3.5-5.0); Total Bilirubin 0.3 mg/dL (0.2-1.0); Total Protein 6.6 g/dL (6.4-8.9)
[2017-09-19] MEDS ORDERED: metroNIDAZOLE IV 500 MG/100ML* 500 MG/100 ML BAG IVPB SCH (20:00)
--- NOTE | 2017-09-20 03:29 | DS ---
DISCHARGE SUMMARY: DATE OF ADMISSION: 08/26/17 DATE OF DISCHARGE: 09/19/17 DISCHARGE DIAGNOSES: [place] I: Schizophrenia, delirium secondary to urinary tract infection. [place] II: Deferred. [place] III: Acute urinary tract infection. Acute diverticulitis with possible perforation, hypertension, hyperlipidemia, gastroesophageal reflux disease, hypothyroidism. [place] IV: Moderate primary support stressors. [place] V: At the time of admission was 26 and at the time of discharge is 51. CONDITION AT THE TIME OF DISCHARGE: Guarded. The patient is experiencing abdominal pain and abdominal CT does show that she has acute diverticulitis with associated perforation. For this reason, she is being transferred to the medical service for further medical care. It should be noted that she is psychiatrically stable. She is delusional. She is calm, cooperative, easily to establish a rapport with and to take a history from. She is future-oriented with respect to returning to her apartment in the community at [facility] and agreeable with followup with the [facility]. We have spoken with her brother, Jaime, and he is agreeable with the plan for [facility] on an outpatient basis. He does not know yet about her pending transfer to Medicine, but he have left messages on his voice mail. MENTAL STATUS EXAM AT THE TIME OF DISCHARGE: The patient is a calm, pleasant, aging white female with blue patient scrubs on who is somewhat overweight. She is clean, well-groomed, calm, cooperative, makes good eye contact, has fairly good posture. Speech has normal rate, tone and volume. Mood is euthymic with a full affect. Thought process is linear and goal directed. Thought content is significant for justifiable concerns about her abdominal situation. She is denying suicidal or homicidal ideations. She denies auditory or visual hallucination. Insight and judgment are fair given her willingness to be transferred to the medical service for definitive treatment for her diverticulitis. Cognitively, she is awake and alert. DISCHARGE INSTRUCTIONS: As follows: A. Medications: 1. She is taking Depakote ER 1500 mg p.o. daily. 2. Levothyroxine 88 mcg p.o. daily. 3. Mobic 7.5 mg p.o. daily. 4. Omeprazole 20 mg p.o. daily. 5. Paliperidone 6 mg p.o. b.i.d. 6. Bactrim double strength 1 tablet p.o. b.i.d. 7. Therapeutic multivitamin. B. Diet: Regular. C. Activities: As per medical floor protocol. The patient is a nonsmoker. There are no studies pending at the time of discharge. D. Followup care: The patient will be a direct transfer to the inpatient medical service where they will treat her likely with IV antibiotics. She is psychiatrically cleared for discharge home at this time and we have been working on setting her up with [facility] in the community. The ACT team is aware of her pending discharge from the medical service. E. Substance abuse followup: None applicable given the fact that the patient does not abuse substances. HOSPITAL COURSE: Part A: Reason for admission: The patient is a 67-year-old white female with a history of schizophrenia, who is a resident of the [facility] who was brought in by ambulance after activating her medical bracelet. She was concerned about her recent fall, but was discovered by medical responders to be disorganized and confused. She was brought to the emergency room where they discovered that she had a urinary tract infection. She was briefly seen by the hospitalist service, specifically Dr. Juan C Tubbs , who felt that her condition did not warrant inpatient hospitalist care. He did place her on a 5-day trial of Keflex for her urinary symptoms. Instead, she was admitted to the inpatient psychiatric service due to disorganization and inability to care for herself. Part B: Psychiatric treatment rendered: The patient was admitted to the adult behavioral health unit where she was placed on q.15-minute checks for her own safety. She continued making senseless comments to the effect that she had been carrying Larry Pulido's baby. She also stated that she was visited by the former presidential nominee, Aneesh William. She was delusional and clearly off her medications. Her Depakote level was negligible in the emergency room indicating that she had not been adherent with the medications prescribed at the [facility]. I did speak with her outpatient psychiatrist, Dr. Renata Hodges, who indicated that the patient has not been coming consistently over the past 2 years and had more or less dropped out of service. The patient did receive 5 days' of Keflex but continued to have urinary tract symptoms. We rechecked her urinalysis on 09/11/17, which showed that she continued to have bacteria and white blood cells. At this time, we restarted her on antibiotic only this time with Bactrim double strength one tablet twice daily for a 7-day course, which she is set to complete on . Despite her treatment with a definitive antibiotic treatment for urinary tract symptoms, she continued to complain of abdominal pain. For this reason, I ordered an abdominal CT scan, which showed diverticulitis of the sigmoid colon with associated perforation and evidence of gas around the bowel. We did have contact with the patient's brother, Jaime Roy, who lives in [place], [place] and he was supportive. We felt that she would need a higher level of outpatient services. So, instead of referring her back to the [facility], we placed a referral to the [facility]. We were set to discharge her on 09/20/17. However, after discovering her abdominal issues, we have now made a consult to the medical service. She had been seen by Dr. Willie Solomon who believes that she would be appropriate for IV antibiotics on the medical unit. For her psychiatrist illness, we have placed her on a trial of paliperidone and Depakote, which she has done well on in the past. Currently, her Depakote dose is 1500 mg daily and paliperidone is 6 mg twice daily. At this time, she does not have any further inpatient psychiatric needs. [id number]/[facility] #: [id number] [facility]
== END 2017-09-19 17:50 | disposition short-term general hospital (02) | DRG 750 ==
LOC: ED 11:36 → BSU 08-26 15:55
PROVIDERS: ADMIT Psychiatry & Neurology Psychiatry; ATTEND Psychiatry & Neurology Psychiatry
DX: F25.0 Schizoaffective disorder, bipolar type (principal); F05 Delirium due to known physiological condition; N39.0 Urinary tract infection, site not specified; K57.20 Diverticulitis of large intestine with perforation and abscess without bleeding; R40.2412 Glasgow coma scale score 13-15, at arrival to emergency department; M19.90 Unspecified osteoarthritis, unspecified site; E03.9 Hypothyroidism, unspecified; I10 Essential (primary) hypertension; F31.9 Bipolar disorder, unspecified; E78.5 Hyperlipidemia, unspecified; K21.9 Gastro-esophageal reflux disease without esophagitis; Z91.19 Patient's noncompliance with other medical treatment and regimen
CPT/HCPCS: 36415; 70450; 71010; 74176; 80048; 80053; 80061; 80164; 80307; 80320; 80329; 81003; 81015; 82140; 83036; 83605; 83735; 84436; 84439; 84443; 84479; 84484; 85025; 87077; 87086; 87186; 93005; 99222; 99231; A9270-GY; G0480; J0696; J0744; J1200; J1630; J2060; J3490

== ENCOUNTER 2017-09-19 17:54 | Inpatient (IN) | payer MEDICAID, OTHER ==
[2017-09-19] MEDS ORDERED: Ondansetron INJ* 2 MG/ML VIAL IV PRN (18:17)
[2017-09-19] MEDS ORDERED: Haloperidol TAB* 5 MG PO PRN (18:21)
[2017-09-19] MEDS: Paliperidone TAB* 6 MG PO SCH (20:06)
[2017-09-19] MEDS: Ciprofloxacin 400MG IVPREMIX(* 400 MG/200 ML BAG IVPB SCH (20:07)
[2017-09-19] MEDS: Enoxaparin(*) 40 MG/0.4 ML SYR SUBCUT SCH (20:13)
[2017-09-19] MEDS: D5W 1/2 NS KCl 20 Meq 1000 ML* 1,000 ML IV SCH (20:14)
[2017-09-19] MEDS: metroNIDAZOLE IV 500 MG/100ML* 500 MG/100 ML BAG IVPB SCH (23:23)
[2017-09-20] MEDS ORDERED: oxyCODONE TAB* 5 MG TAB PO PRN (00:43)
[2017-09-20] MEDS: metroNIDAZOLE IV 500 MG/100ML* 500 MG/100 ML BAG IVPB SCH ×3 (03:02→20:26)
[2017-09-20] MEDS: Omeprazole CAP* 20 MG PO SCH (05:43)
[2017-09-20] MEDS: Levothyroxine TAB* 88 MCG TAB PO SCH (05:43)
[2017-09-20] MEDS: Acetaminophen TAB* 325 MG PO PRN (06:19)
[2017-09-20 06:46] LABS: Hematocrit 37 % (35-47); Hemoglobin 11.9 g/dl (12.0-16.0); Mean Corpuscular HGB Conc 32 g/dl (31-36); Mean Corpuscular Hemoglobin 26 pg (27-31); Mean Corpuscular Volume 79 fL (80-97); Mean Platelet Volume 7 um3 (7.4-10.4); Red Blood Count 4.65 10^6/ul (4.0-5.4); Red Cell Distribution Width 18 % (10.5-15); White Blood Count 8.1 10^3/ul (3.5-10.8)
[2017-09-20 07:08] LABS: BUN/Creatinine Ratio 17.6 (8-20); Calcium 9.2 mg/dL (8.6-10.3); EGFR African American 86.1 (>60); EGFR Non-African American 66.9 (>60); Potassium 4.4 mmol/L (3.5-5.0)
[2017-09-20] MEDS: D5W 1/2 NS KCl 20 Meq 1000 ML* 1,000 ML IV SCH ×2 (08:44→19:46)
[2017-09-20] MEDS: Divalproex ER TAB(*) 500 MG PO SCH (08:56)
[2017-09-20] MEDS: Paliperidone TAB* 6 MG PO SCH ×2 (08:56→20:58)
[2017-09-20] MEDS ORDERED: Influenza VAC *QUAD* 2017-18* 0.5 ML SYRINGE IM ONE (09:00)
[2017-09-20] MEDS: Ciprofloxacin 400MG IVPREMIX(* 400 MG/200 ML BAG IVPB SCH ×2 (09:00→21:47)
--- NOTE | 2017-09-20 15:09 | PN ---
Subjective Date of Service: 09/20/17 Interval History: No new c/o. She denies pain, nausea. Nl BM yesterday. Objective Active Medications: Acetaminophen (Tylenol Tab*) 650 mg PO Q4H PRN PRN Reason: FEVER/PAIN Last Admin: 09/20/17 06:19 Dose: 650 mg Divalproex Sodium (Depakote Er Tab(*)) 1,500 mg PO DAILY [facility] Last Admin: 09/20/17 08:56 Dose: 1,500 mg Enoxaparin Sodium (Lovenox(*)) 40 mg SUBCUT Q24H [facility] Last Admin: 09/19/17 20:13 Dose: 40 mg Haloperidol (Haldol Tab*) 5 mg PO Q6H PRN PRN Reason: AGITATION Potassium Chloride/Dextrose (D5w 1/2 Ns Kcl 20 Meq 1000 Ml*) 1,000 mls @ 100 mls/hr IV PER RATE [facility] Last Admin: 09/20/17 08:44 Dose: 100 mls/hr Ciprofloxacin/Dextrose (Cipro 400 Mg Ivpremix(*)) 400 mg in 200 mls @ 200 mls/ hr IVPB Q12H [facility] Last Admin: 09/20/17 09:00 Dose: 200 mls/hr Metronidazole/Sodium Chloride (Flagyl 500 Mg Ivpb*) 500 mg in 100 mls @ 100 mls /hr IVPB Q8H [facility] Last Admin: 09/20/17 12:34 Dose: 100 mls/hr Levothyroxine Sodium (Synthroid Tab*) 88 mcg PO DAILY@0600 [facility] Last Admin: 09/20/17 05:43 Dose: 88 mcg Omeprazole (Prilosec Cap*) 20 mg PO 0600 [facility] Last Admin: 09/20/17 05:43 Dose: 20 mg Ondansetron HCl (Zofran Inj*) 4 mg IV Q4H PRN PRN Reason: NAUSEA/VOMITING Paliperidone (Invega Tab*) 6 mg PO BID [facility] Last Admin: 09/20/17 08:56 Dose: 6 mg Oxygen Devices in Use Now: None Appearance: Alert, supine in bed. In good spirits. Looks comfortable. Eyes: No Scleral Icterus Abdominal: NL Sounds; No Tenderness; No Distention, No Hepatosplenomegaly, - Extremities: No Edema, No Clubbing, Cyanosis, - Skin: No Rash or Ulcers, No Nodules or Sclerosis, - Neurological: Alert and Oriented x 3, NL Sensation Result Diagrams: 09/20/17 06:14 09/20/17 06:14 Assess/Plan/Problems-Billing Assessment: - Patient Problems (1) Diverticulitis Current Visit: Yes Status: Acute Code(s): K57.92 - DVTRCLI OF INTEST, PART UNSP, W/O PERF OR ABSCESS W/O BLEED SNOMED Code(s): 371052901 Comment: Still disparity between CT findings and PE. Not tender 09/20. Continue IV antibiotics another day. (2) Hypothyroid Current Visit: Yes Status: Acute Code(s): E03.9 - HYPOTHYROIDISM, UNSPECIFIED SNOMED Code(s): 26570473 Comment: Continue levothyroxine. TSH wnl 09/16/17. (3) Schizophrenia Current Visit: No Status: Acute Code(s): F20.9 - SCHIZOPHRENIA, UNSPECIFIED SNOMED Code(s): 22397827 Comment: Continue valproic acid and paliperidone.
--- NOTE | 2017-09-20 17:39 | PN ---
Progress Note - Progress Note Date of Service: 09/20/17 Note: Brief Surgery Note: (full consult note dictated) S: 67 yo female transferred from [facility] w/ abd pain, bloating, nausea w/ noncontrast CT showing what looks like sigmoid diverticulitis w/ limited perforation (free air). Pt states that she feels better today. She's been having normal BMs (though states that she was receiving MOM daily while inpatient on ). O: Vital Signs - 8 hr 09/20/17 16:11 Temperature 98.4 F Pulse Rate 70 Respiratory 18 Rate Blood Pressure 128/38 (mmHg) O2 Sat by Pulse 95 Oximetry Gen: NAD; appears comfortable Heart: reg Lungs: clear Abd: +BS; obese; soft; tender LLQ and suprapubic area w/o peritoneal signs ( guarding, rebound, rigidity) Labs: Laboratory Tests 09/20/17 09/20/17 06:14 06:14 WBC 8.1 Hgb 11.9 L Glucose 126 H Order Information: CT ABD/PEL W/O Oral contrast was not administered. FINDINGS: The study is limited by the lack of intravenous contrast. This limits evaluation of the solid organs and vasculature. IMPRESSION: 1. THERE IS EXTENSIVE DIVERTICULITIS ALONG THE SIGMOID COLON WITH LOCAL EXTRALUMINAL GAS CONSISTENT WITH PERFORATION. 2. THERE IS RIGHT-SIDED HYDRONEPHROSIS WITHOUT NEPHROLITHIASIS, LIKELY SECONDARY TO THE PELVIC INFLAMMATORY CHANGE. A: diverticulitis w/ micro perforation, clinically stable P: no indication for surgical intervention; agree w/ continued IV abx; clear liq diet and gradual transition to low residue diet upon discharge. Case discussed w/ Drs. Gordon and Neha
[2017-09-20] MEDS: Enoxaparin(*) 40 MG/0.4 ML SYR SUBCUT SCH (20:56)
--- NOTE | 2017-09-20 20:56 | CONS ---
SURGICAL CONSULT NOTE: DATE OF CONSULT: 09/20/17 ATTENDING SURGEON: Dr. Trevor Gordon. CHIEF COMPLAINT: Diverticulitis with free air. HISTORY OF PRESENT ILLNESS: This is a 67-year-old female recently admitted to the behavioral services unit with apparent acute psychosis and delusions, but who was most recently stable and planned for discharge on 09/20/17. The history that she gives is at times suspect based on certain details such as her stating that at one point she weighed 1300 pounds. In any case, she describes having generalized abdominal symptoms for the past 1 to 2 years that she describes as intermittent abdominal discomfort associated with bloating and indigestion. She also reports weight loss of 170 pounds over the past 1 to 2 years related to poor intake. Lately, in the past couple of weeks, she has felt increasingly "blocked" with also some constipation symptoms for which was using Metamucil at home and milk of magnesia here in the hospital though I was unable to confirm that. She states that she has been continuing to have normal bowel movements of late and denies specifically any blood per rectum or diarrhea. She does admit to nausea, but denies vomiting. She admits to feeling fevers and chills. She states that she has not had any similar symptoms in the past at least not as severe as the past few days. She has had colonoscopies done in the past and per the record, it appears as though these were done in [address] Rivas; polyps were removed at both occasions, but all benign. The patient was admitted to the hospitalist service and we were asked to consult. PAST MEDICAL HISTORY: Significant for schizophrenia, obesity, hypothyroidism, GERD. PAST SURGICAL HISTORY: Previous surgeries include tonsillectomy remotely and some type of procedure related to an ovary done by Dr. Lopez via Pfannenstiel incision, which I did confirm (I am not sure of the specifics of the procedure though). MEDICATIONS: Planned at the time of discharge from the behavioral services unit include: 1. Depakote extended release 1500 mg once daily. 2. Levothyroxine 88 mcg once daily. 3. Mobic 7.5 mg once daily. 4. Omeprazole 20 mg once daily. 5. Paliperidone 6 mg b.i.d. 6. Bactrim DS b.i.d. 7. Multivitamin once daily. DRUG ALLERGIES: None known. SOCIAL HISTORY: The patient lives alone in an apartment at [facility]. She states that her brother lives nearby and is her main social support. She has children, [place]. She quit smoking over 30 years ago. She drinks alcohol rarely (once or twice a year). REVIEW OF SYSTEMS: General: No recent constitutional symptoms other than described above. No other recent acute illnesses noted. Cardiovascular: No chest pain, palpitations, history of hypertension, OH or angina. Respiratory: No history of asthma, chronic cough or shortness of breath. GI: As above per HPI. : She denies dysuria, increased frequency, fecal matter in the urine, or pneumaturia. GAME SHOW HOST: No additions. Neuro/Psych: As above. See separate discharge summary from Dr. Gupta. PHYSICAL EXAM: Height 5 feet 4 inches, weight 180 pounds by history, temperature 98.6, blood pressure 128/49, pulse 76, respirations 16 to 22, room air saturation 93% to 98%. General: Well-nourished, obese female, in no acute distress. She appears comfortable. Skin: Warm and dry. No suspicious rashes or lesions noted. HEENT: Pupils equal, round, and reactive. Slight conjunctival pallor. Oropharynx: Mucous membranes moist. No intraoral lesions. Teeth in good repair. Neck: No lymphadenopathy, thyromegaly, or masses. Heart: Regular rate and rhythm. No murmur noted. Lungs: Clear to auscultation. No rales or wheezes. Abdomen: Obese, bowel sounds present, well- healed Pfannenstiel incision, soft with [id number] tenderness in the left lower quadrant and suprapubic area. There is no rebound, rigidity, or guarding. The remainder of the abdomen is nontender and without palpable masses or organomegaly. Genitalia and rectal: Not done. Back: No spinous process or CVA tenderness. Extremities: No edema. Neurological: Grossly intact. DIAGNOSTIC STUDIES/LAB DATA: White blood cell count 8100, hemoglobin 11.9. Blood glucose is mildly elevated. CT scan of the abdomen and pelvis without oral or IV contrast was reviewed personally showing what appears to be significant sigmoid diverticulosis with an area consistent with diverticulitis with small areas of free air in that region. There is also noted to be moderate right hydroureter and right hydronephrosis felt to be secondary to the inflammatory process within the pelvis. There was no evidence of renal stone. IMPRESSION: Diverticulitis with contained perforation based on small amounts of free air in a patient whose history is somewhat unreliable, but who clinically appears well. PLAN: I agree with current IV antibiotics and to complete course of oral antibiotics. I will put her back on clear liquid diet and she may transition to low-residue diet upon discharge. Her case was discussed with both Dr. Gordon and Dr. Solomon. We will continue to follow while she is in house, but do not anticipate the need for any surgical intervention at this time. SUDHIR KING [id number]/[facility] #: [id number] MTDAlfonso
[2017-09-21] MEDS: metroNIDAZOLE IV 500 MG/100ML* 500 MG/100 ML BAG IVPB SCH ×2 (03:50→11:22)
[2017-09-21] MEDS: Acetaminophen TAB* 325 MG PO PRN ×3 (04:30→14:07)
[2017-09-21] MEDS: Omeprazole CAP* 20 MG PO SCH (05:42)
[2017-09-21] MEDS: Levothyroxine TAB* 88 MCG TAB PO SCH (05:43)
[2017-09-21] MEDS: Divalproex ER TAB(*) 500 MG PO SCH (09:05)
[2017-09-21] MEDS: Paliperidone TAB* 6 MG PO SCH ×2 (09:06→22:08)
[2017-09-21] MEDS: Ciprofloxacin 400MG IVPREMIX(* 400 MG/200 ML BAG IVPB SCH (09:25)
--- NOTE | 2017-09-21 12:35 | PN ---
Progress Note - Progress Note Date of Service: 09/21/17 Note: Surgery Progress: S: Feels better. Denies pain. Nasra reg diet. Passing flatus. + BM this a.m. O: Vital Signs - 8 hr 09/21/17 09/21/17 07:43 08:00 Temperature 97.7 F Pulse Rate 68 Respiratory 16 18 Rate Blood Pressure 144/49 (mmHg) O2 Sat by Pulse 94 Oximetry Current Medications Acetaminophen (Tylenol Tab*) 650 mg PO Q4H PRN PRN Reason: FEVER/PAIN Last Admin: 09/21/17 09:06 Dose: 650 mg Ciprofloxacin (Cipro Tab*) 500 mg PO Q12HR [facility] Divalproex Sodium (Depakote Er Tab(*)) 1,500 mg PO DAILY [facility] Last Admin: 09/21/17 09:05 Dose: 1,500 mg Enoxaparin Sodium (Lovenox(*)) 40 mg SUBCUT Q24H [facility] Last Admin: 09/20/17 20:56 Dose: Not Given Haloperidol (Haldol Tab*) 5 mg PO Q6H PRN PRN Reason: AGITATION Potassium Chloride/Dextrose (D5w 1/2 Ns Kcl 20 Meq 1000 Ml*) 1,000 mls @ 100 mls/hr IV PER RATE [facility] Last Admin: 09/20/17 19:46 Dose: 100 mls/hr Levothyroxine Sodium (Synthroid Tab*) 88 mcg PO DAILY@0600 [facility] Last Admin: 09/21/17 05:43 Dose: 88 mcg Metronidazole (Flagyl Tab*) 500 mg PO BID [facility] Omeprazole (Prilosec Cap*) 20 mg PO 0600 [facility] Last Admin: 09/21/17 05:42 Dose: 20 mg Ondansetron HCl (Zofran Inj*) 4 mg IV Q4H PRN PRN Reason: NAUSEA/VOMITING Paliperidone (Invega Tab*) 6 mg PO BID [facility] Last Admin: 09/21/17 09:06 Dose: 6 mg Heart: reg Lungs: clear Abd: +BS; soft, nontender to palp; no masses; no guarding No labs today A: acute diverticulitis w/ micro perf, improved on medical tx P: dispo per hosp (discussed w/ Dr. Solomon); agree w/ add'l po abx upon d/c; surg f/u prn (contact info provided)
--- NOTE | 2017-09-21 12:41 | PN ---
Progress Note - Progress Note Date of Service: 09/21/17 Note: Time spent on discharge 50 minutes.
--- NOTE | 2017-09-21 12:47 | PN ---
Progress Note - Progress Note Date of Service: 09/21/17 Note: Time spent on discharge 55 minutes.
--- NOTE | 2017-09-21 21:37 | DS ---
CC: Dr. Roque * DISCHARGE SUMMARY: DATE OF ADMISSION: DATE OF DISCHARGE: 09/21/17 HISTORY OF PRESENT ILLNESS: This 67-year-old woman was admitted to the behavioral science unit on 08/26/17 for schizophrenic and/or bipolar disorder exacerbation. At that time, I was called to see her. The plan was to discharge her home the next day; however, she has been complaining of abdominal pain. A CT scan showed evidence of sigmoid diverticulitis with possible remarkable perforation with very tiny amounts of small air. The patient was quite a poor historian. The patient had colonoscopy by Dr. Rivas on 02/11/11, four small polyps were removed. Sigmoid diverticulosis was noted. The patient received intravenous ciprofloxacin and metronidazole, she did well. There was unusual disparity between the very benign findings and lack of symptoms on the CT scan findings. This really did not change. She was quite well. Her diet was advanced. Surgical consultation was obtained. They agreed with treating her with antibiotics. The patient will take 10 more days of ciprofloxacin and metronidazole by mouth after discharge. She has followup with the ACT team and has requested that she have a new primary care provider. Normally, she would be responsible for finding one on her own, but due to her psychiatric problem there is lot of assistance possibly available to help her with this. On the day of discharge she s/o BL lower abdominal pain. Her abdominal exam was benign--soft, non-tender, nl BS. CRP about 30, no prior values. WBC remains nl. I would repeat her CRP in a week or so. FINAL DIAGNOSES: 1. Sigmoid diverticulitis. 2. Hypothyroidism. 3. Schizophrenia. DISCHARGE MEDICATIONS: 1. Ciprofloxacin 500 mg b.i.d. for 10 days. 2. Metronidazole 500 mg b.i.d. for 10 days. 3. Acetaminophen 650 mg every 4 hours p.r.n. 4. Maalox plus 30 mL every 4 hours p.r.n. 5. Divalproex ER 1500 mg daily. 6. Levothyroxine 88 mcg daily. 7. Omeprazole 20 mg daily. 8. Paliperidone 6 mg b.i.d. [id number]/[facility] #: [id number] [facility]
[2017-09-21] MEDS: Enoxaparin(*) 40 MG/0.4 ML SYR SUBCUT SCH (22:07)
[2017-09-21] MEDS: Ciprofloxacin TAB* 500 MG PO SCH (22:07)
[2017-09-21] MEDS: metroNIDAZOLE TAB* 250 MG PO SCH (22:07)
[2017-09-22] MEDS: Omeprazole CAP* 20 MG PO SCH (05:33)
[2017-09-22] MEDS: Levothyroxine TAB* 88 MCG TAB PO SCH (05:33)
[2017-09-22] MEDS: Ciprofloxacin TAB* 500 MG PO SCH (08:42)
[2017-09-22] MEDS: Paliperidone TAB* 6 MG PO SCH (08:42)
[2017-09-22] MEDS: metroNIDAZOLE TAB* 250 MG PO SCH (08:42)
[2017-09-22] MEDS: Divalproex ER TAB(*) 500 MG PO SCH (08:42)
[2017-09-22 09:36] LABS: Hematocrit 35 % (35-47); Hemoglobin 11.4 g/dl (12.0-16.0); Mean Corpuscular HGB Conc 32 g/dl (31-36); Mean Corpuscular Hemoglobin 26 pg (27-31); Mean Corpuscular Volume 79 fL (80-97); Mean Platelet Volume 7 um3 (7.4-10.4); Red Blood Count 4.46 10^6/ul (4.0-5.4); Red Cell Distribution Width 18 % (10.5-15); White Blood Count 9.7 10^3/ul (3.5-10.8)
[2017-09-22] MEDS ORDERED: HYDROcodone/ACETAMIN 5-325 MG* 1 TAB PO PRN ×2 (11:13)
--- NOTE | 2017-09-22 11:21 | PN ---
Progress Note - Progress Note Date of Service: 09/22/17 Note: Surgery Progress: S: [place] worse last pm and this am; more pain in the lower abd/pelvic regions; assoc w/ nausea (no vomiting). On po Cipro/Flagyl. Still having BMs. Current Medications Acetaminophen (Tylenol Tab*) 650 mg PO Q4H PRN PRN Reason: FEVER/PAIN Last Admin: 09/21/17 14:07 Dose: 650 mg Hydrocodone Bitart/Acetaminophen ([place] 5-325 Tab*) 1 tab PO Q4H PRN PRN Reason: moderate pain Hydrocodone Bitart/Acetaminophen ([place] 5-325 Tab*) 2 tab PO Q4H PRN PRN Reason: moderately severe pain Ciprofloxacin (Cipro Tab*) 500 mg PO Q12HR [facility] Last Admin: 09/22/17 08:42 Dose: 500 mg Divalproex Sodium (Depakote Er Tab(*)) 1,500 mg PO DAILY [facility] Last Admin: 09/22/17 08:42 Dose: 1,500 mg Enoxaparin Sodium (Lovenox(*)) 40 mg SUBCUT Q24H [facility] Last Admin: 09/21/17 22:07 Dose: 40 mg Haloperidol (Haldol Tab*) 5 mg PO Q6H PRN PRN Reason: AGITATION Potassium Chloride/Dextrose (D5w 1/2 Ns Kcl 20 Meq 1000 Ml*) 1,000 mls @ 100 mls/hr IV PER RATE [facility] Last Admin: 09/20/17 19:46 Dose: 100 mls/hr Levothyroxine Sodium (Synthroid Tab*) 88 mcg PO DAILY@0600 [facility] Last Admin: 09/22/17 05:33 Dose: 88 mcg Metronidazole (Flagyl Tab*) 500 mg PO BID [facility] Last Admin: 09/22/17 08:42 Dose: 500 mg Omeprazole (Prilosec Cap*) 20 mg PO 0600 [facility] Last Admin: 09/22/17 05:33 Dose: 20 mg Ondansetron HCl (Zofran Inj*) 4 mg IV Q4H PRN PRN Reason: NAUSEA/VOMITING Paliperidone (Invega Tab*) 6 mg PO BID [facility] Last Admin: 09/22/17 08:42 Dose: 6 mg O: Vital Signs - 8 hr 09/22/17 09/22/17 09/22/17 04:04 07:33 07:45 Temperature 98.5 F 98.4 F Pulse Rate 75 72 Respiratory 16 18 18 Rate Blood Pressure 160/57 143/50 (mmHg) O2 Sat by Pulse 94 94 Oximetry Intake and Output Last 24 Hours 09/20/17 09/21/17 09/22/17 09/23/17 06:59 06:59 06:59 06:59 Intake Total 200 3505 1500 Balance 200 3505 1500 Weight 180 lb Intake: IV Fluids 200 1905 D5W 1/2 NS with 20 K 200 1845 NS (0.9%) 60 IVPB 300 0 ABX - CIPROFLOXACIN 200 ABX - FLAGYL 100 NS (0.9%) 0 Oral 0 1300 1500 Other: Estimated Void Large Large # Bowel Movements 0 1 1 Estimated Stool Amount Large # Voids 1 0 Gen: appears uncomfortable Heart: reg LUngs: clear ant Abd: +BS; no sig bloating/distension; soft; mild to moderate tenderness throughout lower abd w/o guarding or rigidity. Labs: Laboratory Tests 09/22/17 09/22/17 09:04 09:05 WBC 9.7 Hgb 11.4 L C-Reactive Protein 30.74 H A: diverticulitis, feeling worse P: will put back on clear liq diet; will defer to Dr. Solomon re: IV (vs po) abx ; will discuss w/ on-call surgeons covering the weekend.
[2017-09-22 16:09] VITALS: BP 138/53
== END 2017-09-22 16:55 | disposition home or self-care (01) | DRG 244 ==
LOC: MED 17:54
PROVIDERS: ADMIT Internal Medicine; ATTEND Internal Medicine
DX: K57.20 Diverticulitis of large intestine with perforation and abscess without bleeding (principal); F20.9 Schizophrenia, unspecified; N13.30 Unspecified hydronephrosis; E03.9 Hypothyroidism, unspecified; F31.9 Bipolar disorder, unspecified; K21.9 Gastro-esophageal reflux disease without esophagitis; E66.9 Obesity, unspecified; Z68.30 Body mass index [BMI] 30.0-30.9, adult; Z86.010 Personal history of colon polyps; Z87.891 Personal history of nicotine dependence; Z23 Encounter for immunization
CPT/HCPCS: 36415; 80048; 85025; 86140; 90686; A9270-GY; J0744; J1650; J3490

== ENCOUNTER 2019-03-18 10:37 | Inpatient (IN) | payer MEDICARE, MEDICAID ==
--- NOTE | 2019-03-18 11:15 | ED ---
Altered Mental Status - HPI Summary HPI Summary: The patient is a 68 y/o F arriving by ambulance to [facility] from [facility] [place] as 941 with a chief complaint of AMS today. Per EMS report, she was found naked on her couch screaming, so there is concern for mental change. She reports that she has mild fever, increased urinary frequency, hematuria, and burning and dysuria with urination. She denies chills, erythema of eyes, sore throat, CP, SOB, cough, abdominal pain, N/V, back pain, myalgia, edema, rash, or dizziness. - History Of Current Complaint Chief Complaint: EDAltMentalStatus Stated Complaint: MHE/941 PER EMS Time Seen by Provider: 03/18/19 10:44 Hx Obtained From: Patient Onset/Duration: Still Present Timing: Lasting Hours Severity Initially: Moderate Severity Currently: Moderate Character: Confusion Aggravating Factor(s): Nothing Alleviating Factor(s): Nothing Associated Signs And Symptoms: Positive: Fever - mild. Negative: Nausea, Vomiting - Allergies/Home Medications Allergies/Adverse Reactions: Allergies Allergy/AdvReac Type Severity Reaction Status Date / Time No Known Allergies Allergy Verified 08/25/17 16:42 Home Medications: Home Medications Acetaminophen TAB* [Tylenol TAB*] 650 mg PO Q4H PRN 03/18/19 [History Confirmed 03/18/19] Melatonin 1 mg PO BEDTIME 03/18/19 [History Confirmed 03/18/19] Paliperidone ER TAB* [Invega ER TAB*] 3 mg PO BID 03/18/19 [History Confirmed ] PMH/Surg Hx/FS Hx/Imm Hx Sensory History: Denies: Hx Contacts or Glasses, Hx Hearing Aid Opthamlomology History: Denies: Hx Contacts or Glasses Psychiatric History: Reports: Hx Community Mental Health Tx, Hx Bipolar Disorder Denies: Hx Eating Disorder, Hx of Violent Episodes Against Others - Surgical History Surgical History: None Surgery Procedure, Year, and Place: none Infectious Disease History: No Infectious Disease History: Denies: Traveled Outside the [place] in Last 30 Days - Family History Known Family History: Negative: Cardiac Disease - Social History Alcohol Use: None Hx Substance Use: No Substance Use Type: Reports: None Hx Tobacco Use: No Smoking Status (MU): Never Smoked Tobacco Do You Chew or Dip Tobacco: No Amount Used/How Often: Per ER provider report pt has not smoked or used any tobacoo in last 30 day Review of Systems Positive: Fever - mild. Negative: Chills Negative: Erythema Negative: Sore Throat Negative: Chest Pain Negative: Shortness Of Breath, Cough Negative: Abdominal Pain, Vomiting, Nausea Positive: burning, dysuria, frequency - increased, hematuria Positive: Other - NEGATIVE: back pain. Negative: Myalgia, Edema Negative: Rash Neurological: Other - POSITIVE: AMS; NEGATIVE: dizziness Psychological: Other - screaming, visual hallucinations All Other Systems Reviewed And Are Negative: Yes Physical Exam - Summary Physical Exam Summary: Constitutional: Well-developed, Well-nourished, Alert. (-) Distressed Skin: Warm, Dry HENT: Normocephalic; Atraumatic; Poor dentition Eyes: Conjunctiva normal Neck: Musculoskeletal ROM normal neck. (-) JVD, (-) Stridor, (-) Tracheal deviation Cardio: Rhythm regular, rate normal, Heart sounds normal; Intact distal pulses; The pedal pulses are 2+ and symmetric. Radial pulses are 2+ and symmetric. (-) Murmur Pulmonary/Chest wall: Effort normal. (-) Respiratory distress, (-) Wheezes, (-) Rales Abd: Soft, (-) tenderness, (-) Distension, (-) Guarding, (-) Rebound Musculoskeletal: (-) Edema Lymph: (-) Cervical adenopathy Neuro: Alert, Oriented x3 Psych: Delusional Mood and affect Triage Information Reviewed: Yes Vital Signs On Initial Exam: Initial Vitals Temp Pulse Resp BP Pulse Ox 99.5 F 84 22 147/61 90 03/18/19 10:57 03/18/19 10:57 03/18/19 10:57 03/18/19 10:57 03/18/19 10:57 Vital Signs Reviewed: Yes Diagnostics - Vital Signs Vital Signs Temp Pulse Resp BP Pulse Ox 03/18/19 10:57 99.5 F 84 22 147/61 90 - Laboratory Result Diagrams: 03/23/19 06:48 03/23/19 06:48 Lab Statement: Any lab studies that have been ordered have been reviewed, and results considered in the medical decision making process. Altered Mental Statu Course/Dx - Course Course Of Treatment: The patient is a 68 y/o F arriving by ambulance to [facility] from [facility] [place] as 941 with a chief complaint of AMS today after being found naked on her couch screaming. She reports that she has mild fever, increased urinary frequency, hematuria, and burning and dysuria with urination. She denies chills, erythema of eyes, sore throat, CP, SOB, cough, abdominal pain, N/ V, back pain, myalgia, edema, rash, or dizziness. Upon physical exam, the patient exhibits poor dentition and delusional. In the ED course, the patient was administered Ns and Ceftriaxone Sodium. Blood work reveals WBC of 12.4, RBC of 5.36, MCV of 71, MCH of 23, RDW of 17, plt count of 452, MPV of 7.3, abs neuts of 9.3, anion gap of 12, BUN of 34, creatinine of 1.16, BUN/creatinine ratio of 29.3, globulin of 4.1, albumin/globulin of 0.9, and free T4 of 1.23 without any other significant abnormality. UA reveals 2+ protein, trace ketones , 2+ leukocyte esterase, 3+ WBC, 2+ RBC, presence of squamous epithelial cells, and presence of hyaline casts. Toxicology report reveals valproic acid of < 13.0. At 1238, I spoke with Dr. Middleton, hospitalist, and she accepts the patient for admission with dx of UTI and delirium. She agrees with this plan and understands the plan. - Diagnoses Provider Diagnoses: UTI (urinary tract infection), Delirium - Provider Notifications Discussed Care Of Patient With: Alissa Middleton - hospitalist Time Discussed With Above Provider: 12:38 Instructed by Provider To: Other - I discussed the patient's case with Dr. Middleton , she accepts the patient for admisison. Discharge - Sign-Out/Discharge Documenting (check all that apply): Patient Departure - Patient is accepted for admission to [facility]. Patient Received Moderate/Deep Sedation with Procedure: No - Discharge Plan Condition: Stable Disposition: ADMITTED TO [facility] - Billing Disposition and Condition Condition: STABLE Disposition: Admitted to [facility] - Attestation Statements Document Initiated by Scribe: Yes Documenting Scribe: Lydia Vuong Provider For Whom Scribe is Documenting (Include Credential): Dr. Loyd Bella MD Scribe Attestation: Lydia Garsia scribed for Dr. Loyd Bella MD on 03/26/19 at 1453. Scribe Documentation Reviewed: Yes Provider Attestation: The documentation as recorded by the scribe, Lydia Vuong accurately reflects the service I personally performed and the decisions made by me, Dr. Loyd Bella MD Status of Scribe Document: Viewed
[2019-03-18] MEDS ORDERED: NS 0.9% 1000 ML** 1,000 ML IV ONE (11:28)
[2019-03-18 11:46] LABS: Urine Appearance Cloudy; Urine Bacteria Absent (Absent); Urine Bilirubin Negative (Negative); Urine Blood Negative (Negative); Urine Color Amber; Urine Glucose Negative (Negative); Urine Ketones Trace (Negative); Urine Nitrite Negative (Negative); Urine Protein 2+(100 mg/dL) (Negative); Urine Red Blood Cell 2+(6-10/hpf) (Absent); Urine Squamous Epithelial Cell Present (Absent); Urine Urobilinogen Negative (Negative); Urine White Blood Cell 3+(>20/hpf) (Absent)
[2019-03-18 11:52] LABS: Hematocrit 38 % (35-47); Hemoglobin 12.1 g/dL (12.0-16.0); Mean Corpuscular HGB Conc 32 g/dL (31-36); Mean Corpuscular Hemoglobin 23 pg (27-31); Mean Corpuscular Volume 71 fL (80-97); Mean Platelet Volume 7.3 fL (7.4-10.4); Platelet Count 452 10^3/uL (150-450); Red Blood Count 5.36 10^6 /uL (3.70-4.87); Red Cell Distribution Width 17 % (10-15); White Blood Count 12.4 10^3/uL (3.5-10.8)
[2019-03-18] MEDS ORDERED: cefTRIAXone(*) 1 GM in NS 0.9% 50 ML* 50 ML IVPB ONE (11:55)
[2019-03-18 12:05] LABS: Urine Benzodiazepine Screen None Detected (None Detect); Urine Opiates Screen None Detected (None Detect)
[2019-03-18 12:12] LABS: ALT 18 U/L (7-52); AST 30 U/L (13-39); Albumin 3.8 g/dL (3.2-5.2); Albumin/Globulin Ratio 0.9 (1-3); Alkaline Phosphatase 90 U/L (34-104); Anion Gap 12 mmol/L (2-11); BUN/Creatinine Ratio 29.3 (8-20); Blood Urea Nitrogen 34 mg/dL (6-24); CO2 Carbon Dioxide 22 mmol/L (22-32); Calcium 9.8 mg/dL (8.6-10.3); Chloride 106 mmol/L (101-111); EGFR African American 56.4 (>60); EGFR Non-African American 46.6 (>60); Globulin 4.1 g/dL (2-4); Glucose 96 mg/dL (70-100); Potassium 3.9 mmol/L (3.5-5.0); Sodium 140 mmol/L (135-145); Total Protein 7.9 g/dL (6.4-8.9)
[2019-03-18 12:28] LABS: ABS Basophils 0.1 10^3/ul (0-0.2); ABS Eosinophils 0.1 10^3/ul (0-0.6); ABS Lymphocytes 2.3 10^3/ul (1.0-4.8); ABS Monocytes 0.6 10^3/ul (0-0.8); ABS Neutrophils 9.3 10^3/ul (1.5-7.7); Eosinophil % 0.6 %; Lymphocyte % 18.2 %
[2019-03-18 12:34] LABS: Acetaminophen < 15 mcg/mL; Alcohol < 10 mg/dL (<10); Salicylate < 2.50 mg/dL (<30)
[2019-03-18 12:50] LABS: TSH (Thyroid Stimulating Horm) 1.61 mcIU/mL (0.34-5.60)
[2019-03-18 12:51] LABS: Free T4 1.23 ng/dL (0.61-1.12)
[2019-03-18] MEDS ORDERED: NS 0.9% 1000 ML** 1,000 ML IV SCH (13:00)
[2019-03-18] MEDS ORDERED: Haloperidol INJ IV/IM* 5 MG/ML AMP IM ONE (13:06)
[2019-03-18] MEDS ORDERED: Haloperidol TAB* 5 MG PO ONE (13:30)
--- NOTE | 2019-03-18 14:47 | HP ---
HISTORY AND PHYSICAL: DATE OF ADMISSION: 03/18/19 CHIEF COMPLAINT: Altered mental status and urinary tract infection. PRIMARY CARE PROVIDER: Dr. Nii Roque. PRIMARY POT FIREMAN FROM THE CHART: Brother named, Jaime. CODE STATUS: Full code. ATTENDING FOR THIS ADMISSION: Dr. Alissa Middleton.* (DICTATED BY OMARI GRANADO NP) HISTORY OF PRESENT ILLNESS: Ms. Roy is a 68-year-old female patient with a history of schizophrenic disorder, sigmoid diverticulitis, hypothyroidism, and GERD, who was brought into the emergency department today from home at [facility] with report of some disorganized behaviors. She was naked and covered in feces and screaming loudly. Emergency services brought the patient to the emergency department for evaluation. In the ED, she was noted to be quite disheveled and dirty, again covered in urine and feces. She was screened for urinary tract infection and laboratories were drawn. She is found to have what is likely a urinary tract infection and continues to be altered. From the previous records of admission, the patient does have history of schizophrenia from evaluating the patient's medication history and calling her primary care provider's office, Dr. Roque. She has not seen her PCP in well over a year and it appears that she has not picked up her psychiatric medications since December. For these reasons, we have been asked evaluate the patient for admission. PAST MEDICAL HISTORY: As stated above, sigmoid diverticulitis in 2017, history of schizophrenia, hypothyroidism and GERD. PAST SURGICAL HISTORY: None. MEDICATIONS: Per the record are: 1. Invega ER 3 mg p.o. b.i.d. 2. Melatonin 3 mg in the evening. 3. Levothyroxine 88 mcg daily. 4. Prilosec 20 mg daily. 5. Paliperidone 3 mg p.o. b.i.d. 6. Melatonin 1 mg p.o. at bedtime. 7. Maalox plus 30 mL p.o. q.4 hours as needed. 8. Tylenol 650 mg p.o. q.4 hours as needed. 9. Omeprazole 20 mg p.o. daily. 10. Levothyroxine 88 mcg p.o. daily. ALLERGIES: No known drug allergies. FAMILY HISTORY: Unknown. SOCIAL HISTORY: It appears she does not use tobacco. Unable to obtain further information from the patient but it appears from the history that the patient does not have history of ETOH abuse, does not have history of drug abuse and she is a female. REVIEW OF SYSTEMS: Not reliable given the patient's current state. When asked how she feels, the patient replies with "the black hands have little Ivonne." , PHYSICAL EXAMINATION GENERAL: Revealed an well-nourished female, who is agitated and internally preoccupied. VITAL SIGNS: Blood pressure 147/61, heart rate 84, respiratory rate 22, temperature 99.5 with O2 saturation of 93% on room air. HEENT: The patient is atraumatic, normocephalic. PERRLA, nonicteric sclerae. Oral mucosa is dry. Tongue is midline. NECK: Supple, nontender. No JVD noted. No carotid bruits auscultated. LUNGS: Clear bilaterally to auscultation. No wheezing, rhonchi, or rales. CARDIOVASCULAR: S1, S2 present. No murmurs, gallops, or rubs noted. Rate and rhythm are regular. ABDOMEN: Soft, nontender, nondistended. Positive bowel sounds in all 4 quadrants. : Deferred. MUSCULOSKELETAL: There is no clubbing, no cyanosis, no edema. She has +2 distal pulses palpable. Brisk cap refill. Full range of motion. NEUROLOGIC: No acute focal deficits noted. PSYCHIATRIC: She is grossly disorganized, somewhat agitated. She can follow directions, however, and engage with me in her physical exam. Otherwise she is a very poor historian and remains preoccupied. LABORATORY DATA: WBC 12.4, RBC is 5.36, hemoglobin 12.1, hematocrit 38, platelets 452. Sodium 140, potassium 3.9, chloride 106, CO2 22, anion gap 12, BUN 34, creatinine 1.16, GFR 46.6, glucose 96. Lactic acid 1.1. Calcium 9.8. Bilirubin 0.50, AST 30, ALT 18, alk phos 90. Total protein 7.9. Albumin 3.8, globulin 4.1, albumin-globulin ratio 0.9. TSH 1.61. Free T4 1.23. Urinalysis shows kennedy, cloudy urine, pH 5, urine specific gravity 1.020, 2+ protein, trace ketones; negative for blood, nitrites, or bilirubin; 2+ leukocyte esterase , 3+ wbc's, 2+ urine rbc's, present squamous epithelial cells, absent bacteria. She does have hyaline cast present and negative urine glucose. Toxicology is negative. She does have a low valproic acid level, which is at 13.0. Serum alcohol is negative at less than 10. IMPRESSION: Ms. Roy is a 68-year-old female patient with longstanding history it appears of schizophrenia, who presented with altered mental status today with urinary tract infection and likely some nonadherence to her psychiatric medications at home. PLAN: The patient is admitted to inpatient medical service. DIAGNOSES: 1. Altered mental status: This is likely a combination of urinary tract infection and the patient is being off her medications. For her urinary tract infection, she has already been given ceftriaxone in the ED. She does not appear septic and she is not meeting sepsis criteria. She has gotten 1 L of normal saline. We will follow her urine culture, which is pending. She does have an acute kidney injury. Her creatinine is slightly elevated at 1.16, which is slightly above her baseline. In 2018, her creatinine was 0.73. Because we do not know the status of the patient's hydration prior to her admission and presentation to the hospital, she will be given fluids. Her renal function should be followed daily to ensure resolution of her slight bump in her creatinine, which may be in the presence of dehydration and infection. Ceftriaxone will be continued every 24 hours. Antibiotic should be adjusted based on urine culture when that is available. 2. History of schizophrenia: It appears that the patient has been off her medication. Looks like the patient does take paliperidone at home. This medication has not been filled since December. Consultation for Dr. Gupta and psychiatric team has already been placed. We will place her on a 1:1 at this time. The patient is quite agitated at times. If the patient's mood stabilizes , we will remove the 1:1. For now for the patient's safety, we will continue 1: 1. I have given her p.r.n. Haldol, which can be given every 6 hours as needed. We appreciate any recommendations from Psychiatry regarding her plan of care. 3. History of hypothyroidism: We will continue her levothyroxine 88 mcg daily. 4. History of gastroesophageal reflux disease: We will continue her PPI daily. 5. For DVT prophylaxis, we will place the patient on SCDs and ambulate as tolerated. 6. Code status: She is a full code. 7. Diet: She can have regular diet as tolerated. The rest of the patient's course will be determined by further diagnostics, laboratories, and any other input from other providers as warranted during this admission. TIME SPENT: Approximately 60 minutes interfacing with the patient and evaluating the patient's chart and history and developing admission plan of care. DISPOSITION: The patient is admitted to inpatient medical service. OMARI GRANADO, CATHODIC PROTECTION TECHNICIAN [id number]/CPS #: [id number] [place]
--- NOTE | 2019-03-18 18:12 | CONS ---
CONSULTATION REPORT: DATE OF CONSULT: 03/18/19 ATTENDING CLINICIAN: Erica Cuellar NP CONSULTING PHYSICIAN: Dr. Quan Gupta. REASON FOR CONSULT: Confused, agitated behavior. SUBJECTIVE HISTORY: The patient is a 68-year-old white female with a history of schizophrenia, most recently [facility] the [facility], who was brought in via ambulance due to agitated behavior in her apartment. On arrival, the patient was reported to be grossly disorganized and covered in feces in her apartment in [place]. Upon presentation here, she continued to be childlike, agitated, not particularly alert to her situation. She was discovered upon evaluation to have a significant urinary tract infection and is currently admitted to the hospitalist service for antibiotic therapy. Given her mental health history and lack of adherence in the outpatient setting, Psychiatry has been asked to evaluate her. I tried to interview Ms. Roy in the emergency room. She appears to remember me from a psychiatric hospitalization under my care in August of 2017. She is effusive, laughing inappropriately, attempting to grab my hand to shake it. She is friendly, but confused and disoriented. For collateral information, I needed to contact her brother, Jaime Roy, who resides in [place], [place] and is her healthcare proxy. He indicates that after her discharge from the hospital in August 2017, she was placed under the care of the [facility]. She had been doing fine as long as she was taking antipsychotic medications; however, a disagreement occurred in which the ACT team wanted her to go to a primary care appointment, which she refused. At some point in the spring of this year, she discontinued services with them and a check with her pharmacy indicates she had not had antipsychotic therapy since December of this year. PAST PSYCHIATRIC HISTORY: The patient has no prior history of suicidal ideations. She has had three previous psychiatric hospitalizations at [facility] between the middle and most recently in August 2017. Her most recent outpatient care has been through the [facility] community treatment team, which had been providing her with prescriptions for Depakote and paliperidone. SUBSTANCE ABUSE HISTORY: Noncontributory. PAST MEDICAL HISTORY: Significant for diverticulosis, hypothyroidism, gastroesophageal reflux disease. CURRENT MEDICATIONS: 1. Invega 3 mg b.i.d. 2. Melatonin 3 mg in the evening. 3. Synthroid 88 mcg daily. 4. Prilosec 20 mg daily. 5. Maalox 30 mL as needed. 6. Depakote extended-release 1500 mg nightly. ALLERGIES: She has no known drug allergies. FAMILY HISTORY: There is no history of suicidality or mental illness according to her brother. SOCIAL HISTORY: The patient was born and raised in [place], [place]. She has 3 siblings including a brother in [place], a sister in [place], and a brother in [place]. The patient was once and later . Through that marriage , she has 2 children. She has a son who lives in [place] and a daughter who lives in [place]. 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 About 25 years ago after her divorce, she moved to the [facility] and had lived independently until moving into [facility] approximately 12 years ago. The patient is Faith and quite yazidism. She has no prior history of legal problems, no history of service. MENTAL STATUS EXAMINATION: The patient is an aging, obese white female with wilburn short hair. She is effusively friendly with this observer. She has somewhat limited grooming. Speech is limited. Mood appears to be hyperthymic with a labile affect. Thought process is disorganized. Thought content is delusional. The patient denies suicidal or homicidal ideations. She denies auditory or visual hallucinations, although she does at times appear to be responding to internal stimuli. Insight and judgment are markedly impaired given her lack of self-care in the outpatient setting. Cognitively, she is awake, but confused and disoriented. DIAGNOSES: [place] I: Delirium secondary to urinary tract infection, schizophrenia. [place] II: Deferred. IMPRESSION: The patient is a 68-year-old white female with a history of schizophrenia who recently left the treatment of the [facility], who arrived via ambulance being disheveled, confused and covered with feces. Subsequently, it has been discovered that she has a significant urinary tract infection for which she was hospitalized on the medical service. RECOMMENDATIONS TO PRIMARY TEAM: Psychiatry sees no necessity for one-to-one observations at this time; however, I see that she is being placed in a room near the nurses' station, which I think is a reasonable precaution. We will go ahead and resume her psychotropic medications including Depakote ER 1500 mg p.o. q.h.s. and Invega Sustenna at the dose of 6 mg twice daily. Her brother, Jaime, is coming in tomorrow afternoon for a meeting and we plan on speaking with him at that point. There are concerns about whether the patient can continue to live independently in [facility] or whether she needs either a intermediate or some type of assisted living arrangement. Psychiatry will continue to follow the patient. Thank you for the consult. [id number]/CPS #: [id number] [place]
[2019-03-18] MEDS: Haloperidol INJ IV/IM* 5 MG/ML AMP IM PRN (20:15)
[2019-03-18] MEDS: Divalproex ER TAB(*) 500 MG PO SCH (20:19)
[2019-03-18] MEDS: Paliperidone ER TAB* 6 MG TAB.ER PO SCH (20:19)
[2019-03-18] MEDS: Acetaminophen TAB* 325 MG PO PRN (20:19)
[2019-03-19] MEDS: Haloperidol INJ IV/IM* 5 MG/ML AMP IM PRN (02:04)
[2019-03-19] MEDS: Levothyroxine TAB* 88 MCG TAB PO SCH (05:20)
[2019-03-19] MEDS: Pantoprazole TAB * 40 MG TAB PO SCH (05:20)
[2019-03-19 06:18] LABS: ABS Eosinophils 0.1 10^3/ul (0-0.6); ABS Lymphocytes 2.7 10^3/ul (1.0-4.8); ABS Monocytes 0.4 10^3/ul (0-0.8); ABS Neutrophils 4.7 10^3/ul (1.5-7.7); Hematocrit 34 % (35-47); Lymphocyte % 33.8 %; Mean Corpuscular HGB Conc 32 g/dL (31-36); Mean Corpuscular Hemoglobin 23 pg (27-31); Mean Corpuscular Volume 70 fL (80-97); Mean Platelet Volume 7.2 fL (7.4-10.4); Platelet Count 348 10^3/uL (150-450); Red Blood Count 4.83 10^6 /uL (3.70-4.87); Red Cell Distribution Width 16 % (10-15); White Blood Count 7.9 10^3/uL (3.5-10.8)
[2019-03-19 06:29] LABS: Albumin 3.4 g/dL (3.2-5.2); BUN/Creatinine Ratio 28.4 (8-20); Calcium 8.8 mg/dL (8.6-10.3); EGFR African American 85.3 (>60); EGFR Non-African American 70.5 (>60); Globulin 3.4 g/dL (2-4); Potassium 3.4 mmol/L (3.5-5.0); Total Bilirubin 0.3 mg/dL (0.2-1.0); Total Protein 6.8 g/dL (6.4-8.9)
[2019-03-19] MEDS: Paliperidone ER TAB* 6 MG TAB.ER PO SCH ×2 (07:53→22:13)
[2019-03-19] MEDS ORDERED: Potassium Chlor TAB* 20 MEQ TAB.ER PO ONE (08:53)
--- NOTE | 2019-03-19 08:55 | PN ---
Subjective Date of Service: 03/19/19 Interval History: Admitted yesterday for UTI, and altered mental status. Today patient reports that this is unlike her, and talks about random things. Objective Active Medications: Acetaminophen (Tylenol Tab*) 650 mg PO Q4H PRN PRN Reason: FEVER/PAIN Last Admin: 03/18/19 20:19 Dose: 650 mg Divalproex Sodium (Depakote Er Tab(*)) 1,500 mg PO BEDTIME [facility] Last Admin: 03/18/19 20:19 Dose: 1,500 mg Haloperidol Lactate (Haldol Inj Iv/Im*) 5 mg IM Q6H PRN PRN Reason: AGITATION Last Admin: 03/19/19 02:04 Dose: 5 mg Ceftriaxone Sodium 1 gm/ (Sodium Chloride) 50 mls @ 200 mls/hr IVPB Q24H [facility] Levothyroxine Sodium (Synthroid Tab*) 88 mcg PO DAILY@0600 [facility] Last Admin: 03/19/19 05:20 Dose: 88 mcg Magnesium Hydroxide (Milk Of Magnesia Liq*) 30 ml PO Q4H PRN PRN Reason: CONSTIPATION Ondansetron HCl (Zofran Inj*) 4 mg IV Q4H PRN PRN Reason: NAUSEA/VOMITING Paliperidone (Invega Er Tab*) 6 mg PO BID [facility] Last Admin: 03/19/19 07:53 Dose: 6 mg Pantoprazole Sodium (Protonix Tab*) 40 mg PO DAILY@0600 [facility] Last Admin: 03/19/19 05:20 Dose: 40 mg Vital Signs - 8 hr 03/19/19 02:53 Temperature 97.7 F Pulse Rate 65 Respiratory 18 Rate Blood Pressure 132/51 (mmHg) O2 Sat by Pulse 97 Oximetry Oxygen Devices in Use Now: None Appearance: Obese female, eating breakfast, not in distress Eyes: PERRLA Ears/Nose/Mouth/Throat: Mucous Membranes Moist Respiratory: Clear to Auscultation Cardiovascular: NL Sounds; No Murmurs; No JVD, RRR Abdominal: NL Sounds; No Tenderness; No Distention, No Hepatosplenomegaly Extremities: - - trace lower extremity edema Neurological: Alert and Oriented x 3 Result Diagrams: 03/19/19 05:33 03/19/19 05:33 Assess/Plan/Problems-Billing Assessment: 68 year old Female with schizophrenic disorder, Hypothyroidism here with altered mental status, found to have Urinary tract infection. - Patient Problems (1) UTI (urinary tract infection) Current Visit: Yes Status: Acute Comment: Continue Rocpe[place] Day 2, cultures pending. (2) Schizophrenia Current Visit: No Status: Acute Code(s): F20.9 - SCHIZOPHRENIA, UNSPECIFIED SNOMED Code(s): 48156293 Comment: Seen by psychiatry. Continue valproic acid and paliperidone. (3) Hypothyroid Current Visit: No Status: Acute Code(s): E03.9 - HYPOTHYROIDISM, UNSPECIFIED SNOMED Code(s): 14882781 Comment: Continue levothyroxine. (4) DVT prophylaxis Current Visit: Yes Status: Acute Code(s): Z29.9 - ENCOUNTER FOR PROPHYLACTIC MEASURES, UNSPECIFIED SNOMED Code(s): 936120728 Comment: SCD and activity as tolerated Status and Disposition: she lives alone in an apartment.
[2019-03-19] MEDS ORDERED: cefTRIAXone(*) 1 GM in NS 0.9% 50 ML* 50 ML IVPB SCH (12:00)
--- NOTE | 2019-03-19 17:18 | CONSULT ---
Identification - Patient Identification Reason for Psychiatric Consultation: Incapacitating Symptoms -: Patient is a 68 year old, F admitted on 03/18/19. - MHU Identification Employment Status: Disabled Hx Psychiatric Hospitalization: Yes History - Objective HPI: Laura is seen in her room on where she remains confused and non- sequitur. She makes several statements about being with several children and the father is apparently Aneesh William. She is fully oriented to time but not to place or situation. She is friendly with this observer but starts sobbing incoherently and pulling at her teeth, which are significantly decayed. I had a meeting with her brother Jaime Roy ([phone]), who is her HP and has decision making capacity at this time. He states that the family (including himself, the patient's brother, her sister and her daughter) are in agreement that she cannot continue to function independently at [facility] any further. They would like her placed in a nursing facility. I attempted to discuss this with Laura but she does not appear to grasp the concept of correction or ADLs. Exam Appearance: Obese Hygiene: Normal Grooming: Fairly Well Kept Psychomotor Activities: Normal Exhibits Abnormal Movement: No Attitude and Relatedness: Psychotically Related Eye Contact: Fair - Speech Quality: Unpressured Latencies: Normal Quantity: Copious Patient's Decription of Mood: "Okay" Observed Affect: Labile Affect Consistent with: Dysphoria Patient's Thought Process: Disorganized Thought Content: Yes Paranoid Ideation, No Passive Wish, No Suicidal Planning, No Homicidal Ideation Experiencing Hallucinations: No, Sensorium is Clear Type of Hallucinations: Visual: No, Auditory: No, Command: No Level of Consciousness: Alert Orientation: Yes Orientated to Time, No Intact, No Orientated to Place, No Orientated to Person Impulse Control: Poor Insight and Judgement: Impaired Impression - Impression Clinical Impression: 68 y.o. , white female with a history of multiple medical problems and schizophrenia brought in via ambulance from her apartment at [facility] due to disorganized, confused behaviors and inability to care for herself. Inpatient DSM-V Dx: R41.0 Merits Inpatient Hospitalization: No BSU: Problem List - Patient Problems (1) Delirium Current Visit: Yes Status: Acute Code(s): R41.0 - DISORIENTATION, UNSPECIFIED SNOMED Code(s): 8365858 Plan - Treatment Plan Treatment Plan: The patient is being treated medically for delirium secondary to UTI. We have resumed psychotropic med management with Depakote ER 1500mg PO qhs and paliperidone 6mg PO BID. Her family does not believe that she can live safely anymore in the community on an independent basis. They are requesting placement in a correction setting. I will place a consult to . The patient does not have the capacity to refuse SNF placement. Psychiatry will continue to follow. Continued Medication Management: Continue Outpt Medication Medications: Current Medications Acetaminophen (Tylenol Tab*) 650 mg PO Q4H PRN PRN Reason: FEVER/PAIN Last Admin: 03/18/19 20:19 Dose: 650 mg Divalproex Sodium (Depakote Er Tab(*)) 1,500 mg PO BEDTIME [facility] Last Admin: 03/18/19 20:19 Dose: 1,500 mg Haloperidol Lactate (Haldol Inj Iv/Im*) 5 mg IM Q6H PRN PRN Reason: AGITATION Last Admin: 03/19/19 02:04 Dose: 5 mg Ceftriaxone Sodium 1 gm/ (Sodium Chloride) 50 mls @ 200 mls/hr IVPB Q24H [facility] Last Admin: 03/19/19 12:28 Dose: 200 mls/hr Levothyroxine Sodium (Synthroid Tab*) 88 mcg PO DAILY@0600 [facility] Last Admin: 03/19/19 05:20 Dose: 88 mcg Magnesium Hydroxide (Milk Of Magnesia Liq*) 30 ml PO Q4H PRN PRN Reason: CONSTIPATION Ondansetron HCl (Zofran Inj*) 4 mg IV Q4H PRN PRN Reason: NAUSEA/VOMITING Paliperidone (Invega Er Tab*) 6 mg PO BID [facility] Last Admin: 03/19/19 07:53 Dose: 6 mg Pantoprazole Sodium (Protonix Tab*) 40 mg PO DAILY@0600 [facility] Last Admin: 03/19/19 05:20 Dose: 40 mg
[2019-03-19] MEDS: Ondansetron INJ* 2 MG/ML VIAL IV PRN (22:11)
[2019-03-19] MEDS: Divalproex ER TAB(*) 500 MG PO SCH (22:13)
[2019-03-20] MEDS: Benzocaine/Menthol LOZ* 1 LOZENGE PO PRN ×3 (01:55→10:43)
[2019-03-20] MEDS: Pantoprazole TAB * 40 MG TAB PO SCH (05:41)
[2019-03-20] MEDS: Levothyroxine TAB* 88 MCG TAB PO SCH (05:42)
[2019-03-20] MEDS: Paliperidone ER TAB* 6 MG TAB.ER PO SCH ×2 (08:41→19:45)
[2019-03-20] MEDS ORDERED: Piperacillin/Tazobac ADVAN(*) 3.375 GM in NS 0.9% 100 ML* 100 ML IVPB ONE (09:46)
[2019-03-20] MEDS ORDERED: Zosyn per Pharmacy* NOTE FOLLOW UP SCH (10:00)
--- NOTE | 2019-03-20 11:01 | CONSULT ---
Identification - Patient Identification Reason for Psychiatric Consultation: Incapacitating Symptoms -: Patient is a 68 year old, F admitted on 03/18/19. - MHU Identification Employment Status: Disabled Hx Psychiatric Hospitalization: Yes History - Objective HPI: Laura is seen in her room on . She is confused and not making much sense. Her speech is quiet and she whispers non-sequitur statements such as "I' m really relaxed from this music" and "my brother told me it's OK to talk to the president." I asked her how things have been going at [facility] but she will only shake her head and it's not clear if she understands my question. Exam Appearance: Obese Hygiene: Normal Grooming: Fairly Well Kept Psychomotor Activities: Normal Exhibits Abnormal Movement: No Attitude and Relatedness: Psychotically Related Eye Contact: Fair - Speech Quality: Unpressured Latencies: Normal Quantity: Copious Patient's Decription of Mood: "Okay" Observed Affect: Labile Affect Consistent with: Dysphoria Patient's Thought Process: Disorganized Thought Content: Yes Paranoid Ideation, No Passive Wish, No Suicidal Planning, No Homicidal Ideation Experiencing Hallucinations: No, Sensorium is Clear Type of Hallucinations: Visual: No, Auditory: No, Command: No Level of Consciousness: Alert Orientation: Yes Orientated to Time, No Intact, No Orientated to Place, No Orientated to Person Impulse Control: Poor Insight and Judgement: Impaired Impression - Impression Clinical Impression: 68 y.o. , white female with a history of multiple medical problems and schizophrenia brought in via ambulance from her apartment at [facility] due to disorganized, confused behaviors and inability to care for herself. Inpatient DSM-V Dx: R41.0 Merits Inpatient Hospitalization: No BSU: Problem List - Patient Problems (1) Delirium Current Visit: Yes Status: Acute Code(s): R41.0 - DISORIENTATION, UNSPECIFIED SNOMED Code(s): 2757809 Plan - Treatment Plan Treatment Plan: The patient is being treated medically for delirium secondary to UTI. We have resumed psychotropic med management with Depakote ER 1500mg PO qhs and paliperidone 6mg PO BID. Her family does not believe that she can live safely anymore in the community on an independent basis. They are requesting placement in a alf setting. I will place a consult to . The patient does not have the capacity to refuse SNF placement. Psychiatry will continue to follow. Continued Medication Management: Continue Outpt Medication Medications: Current Medications Acetaminophen (Tylenol Tab*) 650 mg PO Q4H PRN PRN Reason: FEVER/PAIN Last Admin: 03/18/19 20:19 Dose: 650 mg Divalproex Sodium (Depakote Er Tab(*)) 1,500 mg PO BEDTIME [facility] Last Admin: 03/19/19 22:13 Dose: 1,500 mg Haloperidol Lactate (Haldol Inj Iv/Im*) 5 mg IM Q6H PRN PRN Reason: AGITATION Last Admin: 03/19/19 02:04 Dose: 5 mg Piperacillin Sod/Tazobactam (Sod 3.375 gm/ Sodium Chloride) 100 mls @ 25 mls/ hr IVPB Q8H [facility] Levothyroxine Sodium (Synthroid Tab*) 88 mcg PO DAILY@0600 [facility] Last Admin: 03/20/19 05:42 Dose: 88 mcg Magnesium Hydroxide (Milk Of MagnEner-G-Rotors Liq*) 30 ml PO Q4H PRN PRN Reason: CONSTIPATION Ondansetron HCl (Zofran Inj*) 4 mg IV Q4H PRN PRN Reason: NAUSEA/VOMITING Last Admin: 03/19/19 22:11 Dose: 4 mg Paliperidone (Invega Er Tab*) 6 mg PO BID [facility] Last Admin: 03/20/19 08:41 Dose: 6 mg Pantoprazole Sodium (Protonix Tab*) 40 mg PO DAILY@0600 [facility] Last Admin: 03/20/19 05:41 Dose: 40 mg Pharmacy Consult (Zosyn Per Pharmacy*) 1 note FOLLOW UP .ZOSYN PER PHARMACY [facility] Throat Lozenges (Chloraseptic Isabelle*) 1 isabelle PO Q6H PRN PRN Reason: SORE THROAT Last Admin: 03/20/19 10:43 Dose: 1 isabelle
--- NOTE | 2019-03-20 11:43 | PN ---
Subjective Date of Service: 03/20/19 Interval History: Ms. Roy is feeling fine today. She c/o generalized body aches, but is not able to further describe this pain. She reports she was having abdominal pain which has resolved. Denies CP, SOB, N/V. Good appetite. She is requesting a lozenge. No concerns from nursing. Family History: Unchanged from Admission Social History: Unchanged from Admission Past Medical History: Unchanged from Admission Objective Active Medications: Acetaminophen (Tylenol Tab*) 650 mg PO Q4H PRN FEVER/PAIN Divalproex Sodium (Depakote Er Tab(*)) 1,500 mg PO BEDTIME [facility] Haloperidol Lactate (Haldol Inj Iv/Im*) 5 mg IM Q6H PRN AGITATION Piperacillin Sod/Tazobactam (Sod 3.375 gm/ Sodium Chloride) 100 mls @ 25 mls/ hr IVPB Q8H [facility] Levothyroxine Sodium (Synthroid Tab*) 88 mcg PO DAILY@0600 [facility] Magnesium Hydroxide (Milk Of Magnesia Liq*) 30 ml PO Q4H PRN CONSTIPATION Ondansetron HCl (Zofran Inj*) 4 mg IV Q4H PRN NAUSEA/VOMITING Paliperidone (Invega Er Tab*) 6 mg PO BID [facility] Pantoprazole Sodium (Protonix Tab*) 40 mg PO DAILY@0600 [facility] Throat Lozenges (Chloraseptic Isabelle*) 1 isabelle PO Q6H PRN SORE THROAT Vital Signs - 8 hr 03/20/19 03/20/19 07:25 08:30 Temperature 97.4 F Pulse Rate 88 Respiratory 16 16 Rate Blood Pressure 125/50 (mmHg) O2 Sat by Pulse 97 Oximetry Oxygen Devices in Use Now: None Appearance: Elderly female laying in bed in NAD Eyes: No Scleral Icterus Ears/Nose/Mouth/Throat: Mucous Membranes Moist Neck: NL Appearance and Movements; NL JVP, Trachea Midline Respiratory: Symmetrical Chest Expansion and Respiratory Effort, Clear to Auscultation Cardiovascular: NL Sounds; No Murmurs; No JVD, RRR Abdominal: - - Soft, mildly tender to palpation throughout Extremities: No Edema Neurological: - - Oriented to self Lines/Tubes/Other Access: Clean, Dry and Intact Peripheral IV Nutrition: Taking PO's Result Diagrams: 03/19/19 05:33 03/19/19 05:33 Assess/Plan/Problems-Billing Assessment: Ms. Roy is a 68 yo F with PMH of schizophrenia, hypothyroidism, and GERD; who presented to the ED with reports of disorganized behaviors and was found to have a UTI. - Patient Problems (1) UTI (urinary tract infection) Comment: - Urine culture growing multi-drug resistant ESBL E. coli - NOT sensitive to ceftriaxone which was started on admission - Change to Zosyn (2) Schizophrenia Code(s): F20.9 - SCHIZOPHRENIA, UNSPECIFIED Comment: - Presented with disorganized behavior, unable to care for herself - Appreciate Psych consult; lacks capacity to make medical decisions - Continue Depakote, paliperidone (3) Acute delirium Code(s): R41.0 - DISORIENTATION, UNSPECIFIED Comment: - Suspect confusion was secondary to baseline schizophrenia exacerbated by UTI - Improving on current medications - Plan as above (4) Hypothyroid Code(s): E03.9 - HYPOTHYROIDISM, UNSPECIFIED Comment: - Continue levothyroxine (5) DVT prophylaxis Code(s): Z29.9 - ENCOUNTER FOR PROPHYLACTIC MEASURES, UNSPECIFIED Comment: - Lovenox (6) Full code status Code(s): Z78.9 - OTHER SPECIFIED HEALTH STATUS Comment: Status and Disposition: Inpatient. Anticipate need for placement as she is unable to care for herself at home. She lacks capacity to make her own medical decisions. Attending: Alissa Middleton
[2019-03-20] MEDS: Enoxaparin(*) 40 MG/0.4 ML SYR SUBCUT SCH (12:11)
[2019-03-20] MEDS: Al Hydrox/Mg Hydrox/Simet LIQ* 30 ML UDC PO PRN ×2 (12:11→19:45)
[2019-03-20] MEDS: ZOSYN 3.375 GM Q8H per EXTENDED INFUSION IVPB SCH ×4 (14:55→23:21)
[2019-03-20] MEDS: Acetaminophen TAB* 325 MG PO PRN (19:41)
[2019-03-20] MEDS: Divalproex ER TAB(*) 500 MG PO SCH (19:45)
[2019-03-21] MEDS: ZOSYN 3.375 GM Q8H per EXTENDED INFUSION IVPB SCH ×6 (06:20→21:32)
[2019-03-21] MEDS: Pantoprazole TAB * 40 MG TAB PO SCH (06:21)
[2019-03-21] MEDS: Levothyroxine TAB* 88 MCG TAB PO SCH (06:21)
[2019-03-21 06:33] LABS: BUN/Creatinine Ratio 10.8 (8-20); Calcium 8.7 mg/dL (8.6-10.3); EGFR Non-African American 68.6 (>60); Potassium 3.9 mmol/L (3.5-5.0)
[2019-03-21] MEDS: Paliperidone ER TAB* 6 MG TAB.ER PO SCH ×2 (07:38→21:35)
[2019-03-21] MEDS: Al Hydrox/Mg Hydrox/Simet LIQ* 30 ML UDC PO PRN (07:39)
[2019-03-21] MEDS: Acetaminophen TAB* 325 MG PO PRN ×2 (07:43→21:35)
--- NOTE | 2019-03-21 11:35 | PN ---
Subjective Date of Service: 03/21/19 Interval History: per nursing staff patient took her own stool and smeared all over herself today. Patient on exam appears to be happy and pleasant. reports she had a "belly ache" this morning but it is not gone. offers no further complaints Family History: Unchanged from Admission Social History: Unchanged from Admission Past Medical History: Unchanged from Admission Objective Active Medications: Acetaminophen (Tylenol Tab*) 650 mg PO Q4H PRN PRN Reason: FEVER/PAIN Last Admin: 03/21/19 07:43 Dose: 650 mg Al Hydrox/Mg Hydrox/Simethicone (Maalox Plus*) 30 ml PO Q6H PRN PRN Reason: INDIGESTION Last Admin: 03/21/19 07:39 Dose: 30 ml Divalproex Sodium (Depakote Er Tab(*)) 1,500 mg PO BEDTIME [facility] Last Admin: 03/20/19 19:45 Dose: 1,500 mg Enoxaparin Sodium (Lovenox(*)) 40 mg SUBCUT Q24H [facility] Last Admin: 03/20/19 12:11 Dose: 40 mg Haloperidol Lactate (Haldol Inj Iv/Im*) 5 mg IM Q6H PRN PRN Reason: AGITATION Last Admin: 03/19/19 02:04 Dose: 5 mg Piperacillin Sod/Tazobactam (Sod 3.375 gm/ Sodium Chloride) 100 mls @ 25 mls/ hr IVPB Q8H [facility] Last Admin: 03/21/19 06:20 Dose: 25 mls/hr Levothyroxine Sodium (Synthroid Tab*) 88 mcg PO DAILY@0600 [facility] Last Admin: 03/21/19 06:21 Dose: 88 mcg Magnesium Hydroxide (Milk Of Magnesia Liq*) 30 ml PO Q4H PRN PRN Reason: CONSTIPATION Ondansetron HCl (Zofran Inj*) 4 mg IV Q4H PRN PRN Reason: NAUSEA/VOMITING Last Admin: 03/19/19 22:11 Dose: 4 mg Paliperidone (Invega Er Tab*) 6 mg PO BID [facility] Last Admin: 03/21/19 07:38 Dose: 6 mg Pantoprazole Sodium (Protonix Tab*) 40 mg PO DAILY@0600 [facility] Last Admin: 03/21/19 06:21 Dose: 40 mg Pharmacy Consult (Zosyn Per Pharmacy*) 1 note FOLLOW UP .ZOSYN PER PHARMACY [facility] Throat Lozenges (Chloraseptic Isabelle*) 1 isabelle PO Q6H PRN PRN Reason: SORE THROAT Last Admin: 03/20/19 10:43 Dose: 1 isabelle Vital Signs - 8 hr 03/21/19 03/21/19 08:00 10:00 Temperature 98.4 F Pulse Rate 87 Respiratory 18 16 Rate Blood Pressure 132/44 (mmHg) O2 Sat by Pulse 94 Oximetry Oxygen Devices in Use Now: None Appearance: 68 yo female alert, confused in nad Eyes: No Scleral Icterus, PERRLA Respiratory: Symmetrical Chest Expansion and Respiratory Effort, Clear to Auscultation Cardiovascular: NL Sounds; No Murmurs; No JVD, RRR, No Edema Abdominal: NL Sounds; No Tenderness; No Distention Extremities: No Edema, No Clubbing, Cyanosis Skin: No Rash or Ulcers, No Nodules or Sclerosis Neurological: NL Sensation, NL Muscle Strength and Tone, - - alert, confused, pleasent Lines/Tubes/Other Access: Clean, Dry and Intact Peripheral IV Nutrition: Taking PO's Result Diagrams: 03/19/19 05:33 03/21/19 05:53 Microbiology and Other Data: Microbiology 03/18/19 11:38 Aerobic Blood Culture - Preliminary Blood Venous No Growth Day 2 Anaerobic Blood Culture - Preliminary No Growth Day 2 03/18/19 11:38 Blood Culture - Preliminary Blood Venous No Growth Day 2 03/18/19 11:23 Urine Culture - Final Urine Esbl Escherichia Coli Assess/Plan/Problems-Billing Assessment: Ms. Roy is a 68 yo F with PMH of schizophrenia, hypothyroidism, and GERD; who presented to the ED with reports of disorganized behaviors and was found to have a UTI. - Patient Problems (1) UTI (urinary tract infection) Comment: - Urine culture growing multi-drug resistant ESBL E. coli - NOT sensitive to ceftriaxone which was started on admission - continue Zosyn (2) Acute delirium Comment: - Suspect confusion was secondary to baseline schizophrenia exacerbated by UTI - Improving on current medications - Plan as above (3) Hypothyroid Comment: - Continue levothyroxine (4) Schizophrenia Comment: - Presented with disorganized behavior, unable to care for herself - Appreciate Psych consult; lacks capacity to make medical decisions - Continue Depakote, paliperidone (5) DVT prophylaxis Comment: - Lovenox (6) Full code status Comment: Status and Disposition: Inpatient. Anticipate need for placement as she is unable to care for herself at home. She lacks capacity to make her own medical decisions.
--- NOTE | 2019-03-21 13:12 | CONSULT ---
Identification - Patient Identification Reason for Psychiatric Consultation: Incapacitating Symptoms -: Patient is a 68 year old, F admitted on 03/18/19. - MHU Identification Employment Status: Disabled Hx Psychiatric Hospitalization: Yes History - Objective HPI: Laura is seen for psychiatric follow up on . She has just emerged from a shower after being discovered with feces smeared over herself. The patient seems unaware that she did this to herself and cannot come up with an explanation for her behavior. She remains confused and delirious. Exam Appearance: Obese Hygiene: Normal Grooming: Fairly Well Kept Psychomotor Activities: Normal Exhibits Abnormal Movement: No Attitude and Relatedness: Psychotically Related Eye Contact: Fair - Speech Quality: Unpressured Latencies: Normal Quantity: Copious Patient's Decription of Mood: "Okay" Observed Affect: Labile Affect Consistent with: Dysphoria Patient's Thought Process: Disorganized Thought Content: Yes Paranoid Ideation, No Passive Wish, No Suicidal Planning, No Homicidal Ideation Experiencing Hallucinations: No, Sensorium is Clear Type of Hallucinations: Visual: No, Auditory: No, Command: No Level of Consciousness: Alert Orientation: Yes Orientated to Time, No Intact, No Orientated to Place, No Orientated to Person Impulse Control: Poor Insight and Judgement: Impaired Impression - Impression Clinical Impression: 68 y.o. , white female with a history of multiple medical problems and schizophrenia brought in via ambulance from her apartment at [facility] [place] due to disorganized, confused behaviors and inability to care for herself. Inpatient DSM-V Dx: R41.0 Merits Inpatient Hospitalization: No BSU: Problem List - Patient Problems (1) Delirium Current Visit: Yes Status: Acute Code(s): R41.0 - DISORIENTATION, UNSPECIFIED SNOMED Code(s): 3577032 Plan - Treatment Plan Treatment Plan: The patient is being treated medically for delirium secondary to UTI. We have resumed psychotropic med management with Depakote ER 1500mg PO qhs and paliperidone 6mg PO BID. Her family does not believe that she can live safely anymore in the community on an independent basis. They are requesting placement in a fci setting. I will place a consult to . The patient does not have the capacity to refuse SNF placement. Psychiatry will continue to follow. Continued Medication Management: Continue Outpt Medication Medications: Current Medications Acetaminophen (Tylenol Tab*) 650 mg PO Q4H PRN PRN Reason: FEVER/PAIN Last Admin: 03/21/19 07:43 Dose: 650 mg Al Hydrox/Mg Hydrox/Simethicone (Maalox Plus*) 30 ml PO Q6H PRN PRN Reason: INDIGESTION Last Admin: 03/21/19 07:39 Dose: 30 ml Divalproex Sodium (Depakote Er Tab(*)) 1,500 mg PO BEDTIME [facility] Last Admin: 03/20/19 19:45 Dose: 1,500 mg Enoxaparin Sodium (Lovenox(*)) 40 mg SUBCUT Q24H [facility] Last Admin: 03/20/19 12:11 Dose: 40 mg Haloperidol Lactate (Haldol Inj Iv/Im*) 5 mg IM Q6H PRN PRN Reason: AGITATION Last Admin: 03/19/19 02:04 Dose: 5 mg Piperacillin Sod/Tazobactam (Sod 3.375 gm/ Sodium Chloride) 100 mls @ 25 mls/ hr IVPB Q8H [facility] Last Admin: 03/21/19 06:20 Dose: 25 mls/hr Levothyroxine Sodium (Synthroid Tab*) 88 mcg PO DAILY@0600 [facility] Last Admin: 03/21/19 06:21 Dose: 88 mcg Magnesium Hydroxide (Milk Of Magnesia Liq*) 30 ml PO Q4H PRN PRN Reason: CONSTIPATION Ondansetron HCl (Zofran Inj*) 4 mg IV Q4H PRN PRN Reason: NAUSEA/VOMITING Last Admin: 03/19/19 22:11 Dose: 4 mg Paliperidone (Invega Er Tab*) 6 mg PO BID [facility] Last Admin: 03/21/19 07:38 Dose: 6 mg Pantoprazole Sodium (Protonix Tab*) 40 mg PO DAILY@0600 [facility] Last Admin: 03/21/19 06:21 Dose: 40 mg Pharmacy Consult (Zosyn Per Pharmacy*) 1 note FOLLOW UP .ZOSYN PER PHARMACY [facility] Throat Lozenges (Chloraseptic Isabelle*) 1 isabelle PO Q6H PRN PRN Reason: SORE THROAT Last Admin: 03/20/19 10:43 Dose: 1 isabelle
[2019-03-21] MEDS: Enoxaparin(*) 40 MG/0.4 ML SYR SUBCUT SCH (13:46)
[2019-03-21] MEDS: Divalproex ER TAB(*) 500 MG PO SCH (21:34)
[2019-03-21] MEDS: Benzocaine/Menthol LOZ* 1 LOZENGE PO PRN (21:36)
[2019-03-22] MEDS: Pantoprazole TAB * 40 MG TAB PO SCH (05:05)
[2019-03-22] MEDS: ZOSYN 3.375 GM Q8H per EXTENDED INFUSION IVPB SCH ×6 (05:05→21:45)
[2019-03-22] MEDS: Levothyroxine TAB* 88 MCG TAB PO SCH (05:05)
[2019-03-22] MEDS: Paliperidone ER TAB* 6 MG TAB.ER PO SCH ×2 (07:57→20:08)
--- NOTE | 2019-03-22 09:49 | PN ---
Subjective Date of Service: 03/22/19 Interval History: Pt is pleasantly confused today. reports good appetite. Denies any pain. Reports abdominal pain is gone. Family History: Unchanged from Admission Social History: Unchanged from Admission Past Medical History: Unchanged from Admission Objective Active Medications: Acetaminophen (Tylenol Tab*) 650 mg PO Q4H PRN PRN Reason: FEVER/PAIN Last Admin: 03/21/19 21:35 Dose: 650 mg Al Hydrox/Mg Hydrox/Simethicone (Maalox Plus*) 30 ml PO Q6H PRN PRN Reason: INDIGESTION Last Admin: 03/21/19 07:39 Dose: 30 ml Divalproex Sodium (Depakote Er Tab(*)) 1,500 mg PO BEDTIME [facility] Last Admin: 03/21/19 21:34 Dose: 1,500 mg Enoxaparin Sodium (Lovenox(*)) 40 mg SUBCUT Q24H [facility] Last Admin: 03/21/19 13:46 Dose: 40 mg Haloperidol Lactate (Haldol Inj Iv/Im*) 5 mg IM Q6H PRN PRN Reason: AGITATION Last Admin: 03/19/19 02:04 Dose: 5 mg Piperacillin Sod/Tazobactam (Sod 3.375 gm/ Sodium Chloride) 100 mls @ 25 mls/ hr IVPB Q8H [facility] Last Admin: 03/22/19 05:05 Dose: 25 mls/hr Levothyroxine Sodium (Synthroid Tab*) 88 mcg PO DAILY@0600 [facility] Last Admin: 03/22/19 05:05 Dose: 88 mcg Magnesium Hydroxide (Milk Of Magnesia Liq*) 30 ml PO Q4H PRN PRN Reason: CONSTIPATION Ondansetron HCl (Zofran Inj*) 4 mg IV Q4H PRN PRN Reason: NAUSEA/VOMITING Last Admin: 03/19/19 22:11 Dose: 4 mg Paliperidone (Invega Er Tab*) 6 mg PO BID [facility] Last Admin: 03/22/19 07:57 Dose: 6 mg Pantoprazole Sodium (Protonix Tab*) 40 mg PO DAILY@0600 [facility] Last Admin: 03/22/19 05:05 Dose: 40 mg Pharmacy Consult (Zosyn Per Pharmacy*) 1 note FOLLOW UP .ZOSYN PER PHARMACY [facility] Throat Lozenges (Chloraseptic Isabelle*) 1 isabelle PO Q6H PRN PRN Reason: SORE THROAT Last Admin: 03/21/19 21:36 Dose: 1 isabelle Vital Signs - 8 hr 03/22/19 03/22/19 03/22/19 03:25 08:02 08:03 Temperature 97.7 F 98.4 F Pulse Rate 75 81 Respiratory 22 20 20 Rate Blood Pressure 132/42 133/69 (mmHg) O2 Sat by Pulse 95 96 Oximetry Oxygen Devices in Use Now: None Appearance: 68 yo female sitting up in NAD, confused. Follows commands, anx= swers some questions appropriately Eyes: No Scleral Icterus, PERRLA Ears/Nose/Mouth/Throat: NL Teeth, Lips, Gums, Mucous Membranes Moist Neck: NL Appearance and Movements; NL JVP Respiratory: Symmetrical Chest Expansion and Respiratory Effort, Clear to Auscultation Cardiovascular: NL Sounds; No Murmurs; No JVD, RRR, No Edema Abdominal: NL Sounds; No Tenderness; No Distention, - - obese Extremities: No Edema, No Clubbing, Cyanosis Neurological: NL Muscle Strength and Tone, - - alert, confused Lines/Tubes/Other Access: Clean, Dry and Intact Peripheral IV Nutrition: Taking PO's Result Diagrams: 03/19/19 05:33 03/21/19 05:53 Microbiology and Other Data: Microbiology 03/18/19 11:38 Aerobic Blood Culture - Preliminary Blood Venous No Growth Day 2 Anaerobic Blood Culture - Preliminary No Growth Day 2 03/18/19 11:38 Blood Culture - Preliminary Blood Venous No Growth Day 2 03/18/19 11:23 Urine Culture - Final Urine Esbl Escherichia Coli Assess/Plan/Problems-Billing Assessment: Ms. Roy is a 68 yo F with PMH of schizophrenia, hypothyroidism, and GERD; who presented to the ED with reports of disorganized behaviors and was found to have a UTI. - Patient Problems (1) UTI (urinary tract infection) Comment: - Urine culture growing multi-drug resistant ESBL E. coli - NOT sensitive to ceftriaxone which was started on admission - continue Zosyn (2) Acute delirium Comment: - Suspect confusion was secondary to baseline schizophrenia exacerbated by UTI - Improving on current medications - Plan as above (3) Hypothyroid Comment: - Continue levothyroxine (4) Schizophrenia Comment: - Presented with disorganized behavior, unable to care for herself - Appreciate Psych consult; lacks capacity to make medical decisions - Continue Depakote, paliperidone (5) DVT prophylaxis Comment: - Lovenox (6) Full code status Comment: Status and Disposition: Inpatient. Anticipate need for placement as she is unable to care for herself at home. She lacks capacity to make her own medical decisions.
[2019-03-22] MEDS: Enoxaparin(*) 40 MG/0.4 ML SYR SUBCUT SCH (11:47)
--- NOTE | 2019-03-22 17:26 | CONSULT ---
Identification - Patient Identification Reason for Psychiatric Consultation: Incapacitating Symptoms -: Patient is a 68 year old, F admitted on 03/18/19. - MHU Identification Employment Status: Disabled Hx Psychiatric Hospitalization: Yes History - Objective HPI: Laura is pleasantly confused. No episodes of fecal soiling today. She maintains a fixed delusion that she is with former presidential nominee Aneesh William's baby. Her orientation is slightly improved and she details a problematic relationship with the [facility] team prior to firing them in December of this year. She denies SI or HI. Exam Appearance: Obese Hygiene: Normal Grooming: Fairly Well Kept Psychomotor Activities: Normal Exhibits Abnormal Movement: No Attitude and Relatedness: Psychotically Related Eye Contact: Fair - Speech Quality: Unpressured Latencies: Normal Quantity: Copious Patient's Decription of Mood: "Okay" Observed Affect: Labile Affect Consistent with: Dysphoria Patient's Thought Process: Disorganized Thought Content: Yes Paranoid Ideation, No Passive Wish, No Suicidal Planning, No Homicidal Ideation Experiencing Hallucinations: No, Sensorium is Clear Type of Hallucinations: Visual: No, Auditory: No, Command: No Level of Consciousness: Alert Orientation: Yes Orientated to Time, No Intact, No Orientated to Place, No Orientated to Person Impulse Control: Poor Insight and Judgement: Impaired Impression - Impression Clinical Impression: 68 y.o. , white female with a history of multiple medical problems and schizophrenia brought in via ambulance from her apartment at [facility] due to disorganized, confused behaviors and inability to care for herself. Inpatient DSM-V Dx: R41.0 Merits Inpatient Hospitalization: No BSU: Problem List - Patient Problems (1) Delirium Current Visit: Yes Status: Acute Code(s): R41.0 - DISORIENTATION, UNSPECIFIED SNOMED Code(s): 9553376 Plan - Treatment Plan Treatment Plan: The patient is being treated medically for delirium secondary to UTI. We have resumed psychotropic med management with Depakote ER 1500mg PO qhs and paliperidone 6mg PO BID. I will order a valproic acid level for Monday (03/25) morning. Her family does not believe that she can live safely anymore in the community on an independent basis. They are requesting placement in a shelter setting. Level II IPRO review is pending through [facility]. The patient does not have the capacity to refuse SNF placement. This clinician will return to service on Monday, March 25 and continue consultative care at that time. Questions or concerns over the weekend can be referred to the BSU ([phone]). Continued Medication Management: Continue Outpt Medication Medications: Current Medications Acetaminophen (Tylenol Tab*) 650 mg PO Q4H PRN PRN Reason: FEVER/PAIN Last Admin: 03/21/19 21:35 Dose: 650 mg Al Hydrox/Mg Hydrox/Simethicone (Maalox Plus*) 30 ml PO Q6H PRN PRN Reason: INDIGESTION Last Admin: 03/21/19 07:39 Dose: 30 ml Divalproex Sodium (Depakote Er Tab(*)) 1,500 mg PO BEDTIME [facility] Last Admin: 03/21/19 21:34 Dose: 1,500 mg Enoxaparin Sodium (Lovenox(*)) 40 mg SUBCUT Q24H [facility] Last Admin: 03/22/19 11:47 Dose: 40 mg Haloperidol Lactate (Haldol Inj Iv/Im*) 5 mg IM Q6H PRN PRN Reason: AGITATION Last Admin: 03/19/19 02:04 Dose: 5 mg Piperacillin Sod/Tazobactam (Sod 3.375 gm/ Sodium Chloride) 100 mls @ 25 mls/ hr IVPB Q8H [facility] Last Admin: 03/22/19 13:36 Dose: 25 mls/hr Levothyroxine Sodium (Synthroid Tab*) 88 mcg PO DAILY@0600 [facility] Last Admin: 03/22/19 05:05 Dose: 88 mcg Magnesium Hydroxide (Milk Of Magnesia Liq*) 30 ml PO Q4H PRN PRN Reason: CONSTIPATION Ondansetron HCl (Zofran Inj*) 4 mg IV Q4H PRN PRN Reason: NAUSEA/VOMITING Last Admin: 03/19/19 22:11 Dose: 4 mg Paliperidone (Invega Er Tab*) 6 mg PO BID [facility] Last Admin: 03/22/19 07:57 Dose: 6 mg Pantoprazole Sodium (Protonix Tab*) 40 mg PO DAILY@0600 [facility] Last Admin: 03/22/19 05:05 Dose: 40 mg Pharmacy Consult (Zosyn Per Pharmacy*) 1 note FOLLOW UP .ZOSYN PER PHARMACY [facility] Throat Lozenges (Chloraseptic Isabelle*) 1 isabelle PO Q6H PRN PRN Reason: SORE THROAT Last Admin: 03/21/19 21:36 Dose: 1 isabelle
[2019-03-22] MEDS: Divalproex ER TAB(*) 500 MG PO SCH (20:08)
[2019-03-22] MEDS: Acetaminophen TAB* 325 MG PO PRN (20:14)
[2019-03-22] MEDS: Al Hydrox/Mg Hydrox/Simet LIQ* 30 ML UDC PO PRN (20:15)
[2019-03-22] MEDS: Ondansetron INJ* 2 MG/ML VIAL IV PRN (23:18)
[2019-03-23] MEDS: ZOSYN 3.375 GM Q8H per EXTENDED INFUSION IVPB SCH ×6 (05:53→22:07)
[2019-03-23] MEDS: Pantoprazole TAB * 40 MG TAB PO SCH (05:54)
[2019-03-23] MEDS: Levothyroxine TAB* 88 MCG TAB PO SCH (05:54)
[2019-03-23 07:01] LABS: ABS Basophils 0.1 10^3/ul (0-0.2); ABS Eosinophils 0.1 10^3/ul (0-0.6); ABS Lymphocytes 2.7 10^3/ul (1.0-4.8); ABS Monocytes 0.2 10^3/ul (0-0.8); ABS Neutrophils 2.4 10^3/ul (1.5-7.7); Eosinophil % 2.3 %; Hematocrit 34 % (35-47); Hemoglobin 10.8 g/dL (12.0-16.0); Lymphocyte % 49.1 %; Mean Corpuscular HGB Conc 32 g/dL (31-36); Mean Corpuscular Hemoglobin 23 pg (27-31); Mean Corpuscular Volume 71 fL (80-97); Mean Platelet Volume 7.2 fL (7.4-10.4); Nucleated Red Blood Cells % 0.1; Platelet Count 312 10^3/uL (150-450); Red Blood Count 4.77 10^6 /uL (3.70-4.87); Red Cell Distribution Width 17 % (10-15); White Blood Count 5.6 10^3/uL (3.5-10.8)
[2019-03-23 07:11] LABS: BUN/Creatinine Ratio 11.3 (8-20); Calcium 8.8 mg/dL (8.6-10.3); EGFR African American 86.6 (>60); EGFR Non-African American 71.5 (>60); Potassium 4.1 mmol/L (3.5-5.0)
[2019-03-23] MEDS: Paliperidone ER TAB* 6 MG TAB.ER PO SCH ×2 (08:14→20:10)
--- NOTE | 2019-03-23 12:52 | PN ---
Subjective Date of Service: 03/23/19 Interval History: patient reports she "feels good". offers no complaints. denies abdominal pain. No fevers or chills. Family History: Unchanged from Admission Social History: Unchanged from Admission Past Medical History: Unchanged from Admission Objective Active Medications: Acetaminophen (Tylenol Tab*) 650 mg PO Q4H PRN PRN Reason: FEVER/PAIN Last Admin: 03/22/19 20:14 Dose: 650 mg Al Hydrox/Mg Hydrox/Simethicone (Maalox Plus*) 30 ml PO Q6H PRN PRN Reason: INDIGESTION Last Admin: 03/22/19 20:15 Dose: 30 ml Divalproex Sodium (Depakote Er Tab(*)) 1,500 mg PO BEDTIME [facility] Last Admin: 03/22/19 20:08 Dose: 1,500 mg Enoxaparin Sodium (Lovenox(*)) 40 mg SUBCUT Q24H [facility] Last Admin: 03/22/19 11:47 Dose: 40 mg Haloperidol Lactate (Haldol Inj Iv/Im*) 5 mg IM Q6H PRN PRN Reason: AGITATION Last Admin: 03/19/19 02:04 Dose: 5 mg Piperacillin Sod/Tazobactam (Sod 3.375 gm/ Sodium Chloride) 100 mls @ 25 mls/ hr IVPB Q8H [facility] Last Admin: 03/23/19 05:53 Dose: 25 mls/hr Levothyroxine Sodium (Synthroid Tab*) 88 mcg PO DAILY@0600 [facility] Last Admin: 03/23/19 05:54 Dose: 88 mcg Magnesium Hydroxide (Milk Of Magnesia Liq*) 30 ml PO Q4H PRN PRN Reason: CONSTIPATION Ondansetron HCl (Zofran Inj*) 4 mg IV Q4H PRN PRN Reason: NAUSEA/VOMITING Last Admin: 03/22/19 23:18 Dose: 4 mg Paliperidone (Invega Er Tab*) 6 mg PO BID [facility] Last Admin: 03/23/19 08:14 Dose: 6 mg Pantoprazole Sodium (Protonix Tab*) 40 mg PO DAILY@0600 [facility] Last Admin: 03/23/19 05:54 Dose: 40 mg Pharmacy Consult (Zosyn Per Pharmacy*) 1 note FOLLOW UP .ZOSYN PER PHARMACY [facility] Throat Lozenges (Chloraseptic Isabelle*) 1 isabelle PO Q6H PRN PRN Reason: SORE THROAT Last Admin: 03/21/19 21:36 Dose: 1 isabelle Vital Signs - 8 hr 03/23/19 08:00 Temperature 97.2 F Pulse Rate 73 Respiratory 18 Rate Blood Pressure 151/48 (mmHg) O2 Sat by Pulse 92 Oximetry Oxygen Devices in Use Now: None Appearance: 68 yo female A+O to self and place Eyes: PERRLA Ears/Nose/Mouth/Throat: Mucous Membranes Moist Respiratory: Clear to Auscultation Cardiovascular: NL Sounds; No Murmurs; No JVD, RRR, No Edema Abdominal: NL Sounds; No Tenderness; No Distention, - - obese Extremities: No Edema, No Clubbing, Cyanosis Skin: No Rash or Ulcers, No Nodules or Sclerosis Neurological: Alert and Oriented x 3, NL Sensation, NL Muscle Strength and Tone Lines/Tubes/Other Access: Clean, Dry and Intact Peripheral IV Nutrition: Taking PO's Result Diagrams: 03/23/19 06:48 03/23/19 06:48 Microbiology and Other Data: Microbiology 03/18/19 11:38 Aerobic Blood Culture - Preliminary Blood Venous No Growth Day 2 Anaerobic Blood Culture - Preliminary No Growth Day 2 03/18/19 11:38 Blood Culture - Preliminary Blood Venous No Growth Day 2 03/18/19 11:23 Urine Culture - Final Urine Esbl Escherichia Coli Assess/Plan/Problems-Billing Assessment: Ms. Roy is a 68 yo F with PMH of schizophrenia, hypothyroidism, and GERD; who presented to the ED with reports of disorganized behaviors and was found to have a UTI. - Patient Problems (1) UTI (urinary tract infection) Comment: - Urine culture growing multi-drug resistant ESBL E. coli - NOT sensitive to ceftriaxone which was started on admission - continue Zosyn (2) Acute delirium Comment: - Suspect confusion was secondary to baseline schizophrenia exacerbated by UTI - Continues to improve - Plan as above (3) Hypothyroid Comment: - Continue levothyroxine (4) Schizophrenia Comment: - Presented with disorganized behavior, unable to care for herself - Appreciate Psych consult; lacks capacity to make medical decisions - Continue Depakote, paliperidone (5) DVT prophylaxis Comment: - Lovenox (6) Full code status Comment: Status and Disposition: Inpatient. Anticipate need for placement as she is unable to care for herself at home. She lacks capacity to make her own medical decisions.
[2019-03-23] MEDS: Acetaminophen TAB* 325 MG PO PRN ×2 (13:26→20:10)
[2019-03-23] MEDS: Enoxaparin(*) 40 MG/0.4 ML SYR SUBCUT SCH (13:26)
[2019-03-23] MEDS: Divalproex ER TAB(*) 500 MG PO SCH (20:10)
[2019-03-24] MEDS: Pantoprazole TAB * 40 MG TAB PO SCH (05:27)
[2019-03-24] MEDS: ZOSYN 3.375 GM Q8H per EXTENDED INFUSION IVPB SCH ×6 (05:27→21:13)
[2019-03-24] MEDS: Levothyroxine TAB* 88 MCG TAB PO SCH (05:27)
[2019-03-24] MEDS: Acetaminophen TAB* 325 MG PO PRN (08:27)
[2019-03-24] MEDS: Paliperidone ER TAB* 6 MG TAB.ER PO SCH ×2 (08:28→21:14)
[2019-03-24] MEDS: Enoxaparin(*) 40 MG/0.4 ML SYR SUBCUT SCH (11:10)
--- NOTE | 2019-03-24 14:03 | PN ---
Subjective Date of Service: 03/24/19 Interval History: pt reports no complaints. She tells me about the movie she is watching. She reports she ate all her breakfast and lunch. no abdominal pain. Is noted to be pleasantly confused Family History: Unchanged from Admission Social History: Unchanged from Admission Past Medical History: Unchanged from Admission Objective Active Medications: Acetaminophen (Tylenol Tab*) 650 mg PO Q4H PRN PRN Reason: FEVER/PAIN Last Admin: 03/24/19 08:27 Dose: 650 mg Al Hydrox/Mg Hydrox/Simethicone (Maalox Plus*) 30 ml PO Q6H PRN PRN Reason: INDIGESTION Last Admin: 03/22/19 20:15 Dose: 30 ml Divalproex Sodium (Depakote Er Tab(*)) 1,500 mg PO BEDTIME [facility] Last Admin: 03/23/19 20:10 Dose: 1,500 mg Enoxaparin Sodium (Lovenox(*)) 40 mg SUBCUT Q24H [facility] Last Admin: 03/24/19 11:10 Dose: 40 mg Haloperidol Lactate (Haldol Inj Iv/Im*) 5 mg IM Q6H PRN PRN Reason: AGITATION Last Admin: 03/19/19 02:04 Dose: 5 mg Piperacillin Sod/Tazobactam (Sod 3.375 gm/ Sodium Chloride) 100 mls @ 25 mls/ hr IVPB Q8H [facility] Last Admin: 03/24/19 13:33 Dose: 25 mls/hr Levothyroxine Sodium (Synthroid Tab*) 88 mcg PO DAILY@0600 [facility] Last Admin: 03/24/19 05:27 Dose: 88 mcg Magnesium Hydroxide (Milk Of Magnesia Liq*) 30 ml PO Q4H PRN PRN Reason: CONSTIPATION Ondansetron HCl (Zofran Inj*) 4 mg IV Q4H PRN PRN Reason: NAUSEA/VOMITING Last Admin: 03/22/19 23:18 Dose: 4 mg Paliperidone (Invega Er Tab*) 6 mg PO BID [facility] Last Admin: 03/24/19 08:28 Dose: 6 mg Pantoprazole Sodium (Protonix Tab*) 40 mg PO DAILY@0600 [facility] Last Admin: 03/24/19 05:27 Dose: 40 mg Pharmacy Consult (Zosyn Per Pharmacy*) 1 note FOLLOW UP .ZOSYN PER PHARMACY [facility] Throat Lozenges (Chloraseptic Isabelle*) 1 isabelle PO Q6H PRN PRN Reason: SORE THROAT Last Admin: 03/21/19 21:36 Dose: 1 isabelle Vital Signs - 8 hr 03/24/19 03/24/19 03/24/19 08:03 08:31 11:49 Temperature 97.8 F 98.0 F Pulse Rate 81 62 Respiratory 18 18 18 Rate Blood Pressure 138/56 120/52 (mmHg) O2 Sat by Pulse 93 94 Oximetry Oxygen Devices in Use Now: None Appearance: 68 yo female laying in bed watching tv alert to self and place Eyes: No Scleral Icterus, PERRLA Ears/Nose/Mouth/Throat: Mucous Membranes Moist Respiratory: Symmetrical Chest Expansion and Respiratory Effort, Clear to Auscultation Cardiovascular: NL Sounds; No Murmurs; No JVD, RRR, No Edema Abdominal: NL Sounds; No Tenderness; No Distention Extremities: No Edema, No Clubbing, Cyanosis Skin: No Rash or Ulcers, No Nodules or Sclerosis Neurological: NL Sensation, - - allert, no focal deficits noted Lines/Tubes/Other Access: Clean, Dry and Intact Peripheral IV Nutrition: Taking PO's Result Diagrams: 03/23/19 06:48 03/23/19 06:48 Microbiology and Other Data: Microbiology 03/18/19 11:38 Aerobic Blood Culture - Preliminary Blood Venous No Growth Day 2 Anaerobic Blood Culture - Preliminary No Growth Day 2 03/18/19 11:38 Blood Culture - Preliminary Blood Venous No Growth Day 2 03/18/19 11:23 Urine Culture - Final Urine Esbl Escherichia Coli Assess/Plan/Problems-Billing Assessment: Ms. Roy is a 68 yo F with PMH of schizophrenia, hypothyroidism, and GERD; who presented to the ED with reports of disorganized behaviors and was found to have a UTI. - Patient Problems (1) UTI (urinary tract infection) Comment: - Urine culture growing multi-drug resistant ESBL E. coli - NOT sensitive to ceftriaxone which was started on admission - continue Zosyn (2) Acute delirium Comment: - Suspect confusion was secondary to baseline schizophrenia exacerbated by UTI - Continues to improve - Plan as above (3) Hypothyroid Comment: - Continue levothyroxine (4) Schizophrenia Comment: - Presented with disorganized behavior, unable to care for herself - Appreciate Psych consult; lacks capacity to make medical decisions - Continue Depakote, paliperidone (5) DVT prophylaxis Comment: - Lovenox (6) Full code status Comment: Status and Disposition: Inpatient. Anticipate need for placement as she is unable to care for herself at home. She lacks capacity to make her own medical decisions.
[2019-03-24] MEDS: Divalproex ER TAB(*) 500 MG PO SCH (21:14)
[2019-03-25] MEDS: Pantoprazole TAB * 40 MG TAB PO SCH (05:51)
[2019-03-25] MEDS: ZOSYN 3.375 GM Q8H per EXTENDED INFUSION IVPB SCH ×6 (05:51→21:41)
[2019-03-25] MEDS: Levothyroxine TAB* 88 MCG TAB PO SCH (05:51)
[2019-03-25] MEDS: Paliperidone ER TAB* 6 MG TAB.ER PO SCH ×2 (09:06→21:41)
--- NOTE | 2019-03-25 09:15 | PN ---
Subjective Date of Service: 03/25/19 Interval History: . Patient is pleasantly confused. She remembered me from yesterday,. The primary RN today today reports that she has been gone for several days and took care of the patient last week and the patient remembered her today. It appears her acute delirium has resolved. She reports she is preganant and she feels the baby moving. She denies any pain. Reports she has a good appetite. Family History: Unchanged from Admission Social History: Unchanged from Admission Past Medical History: Unchanged from Admission Objective Active Medications: Acetaminophen (Tylenol Tab*) 650 mg PO Q4H PRN PRN Reason: FEVER/PAIN Last Admin: 03/24/19 08:27 Dose: 650 mg Al Hydrox/Mg Hydrox/Simethicone (Maalox Plus*) 30 ml PO Q6H PRN PRN Reason: INDIGESTION Last Admin: 03/22/19 20:15 Dose: 30 ml Divalproex Sodium (Depakote Er Tab(*)) 1,500 mg PO BEDTIME [facility] Last Admin: 03/24/19 21:14 Dose: 1,500 mg Enoxaparin Sodium (Lovenox(*)) 40 mg SUBCUT Q24H [facility] Last Admin: 03/24/19 11:10 Dose: 40 mg Haloperidol Lactate (Haldol Inj Iv/Im*) 5 mg IM Q6H PRN PRN Reason: AGITATION Last Admin: 03/19/19 02:04 Dose: 5 mg Piperacillin Sod/Tazobactam (Sod 3.375 gm/ Sodium Chloride) 100 mls @ 25 mls/ hr IVPB Q8H [facility] Last Admin: 03/25/19 05:51 Dose: 25 mls/hr Levothyroxine Sodium (Synthroid Tab*) 88 mcg PO DAILY@0600 [facility] Last Admin: 03/25/19 05:51 Dose: 88 mcg Magnesium Hydroxide (Milk Of Magnesia Liq*) 30 ml PO Q4H PRN PRN Reason: CONSTIPATION Ondansetron HCl (Zofran Inj*) 4 mg IV Q4H PRN PRN Reason: NAUSEA/VOMITING Last Admin: 03/22/19 23:18 Dose: 4 mg Paliperidone (Invega Er Tab*) 6 mg PO BID [facility] Last Admin: 03/25/19 09:06 Dose: 6 mg Pantoprazole Sodium (Protonix Tab*) 40 mg PO DAILY@0600 [facility] Last Admin: 03/25/19 05:51 Dose: 40 mg Pharmacy Consult (Zosyn Per Pharmacy*) 1 note FOLLOW UP .ZOSYN PER PHARMACY [facility] Throat Lozenges (Chloraseptic Isabelle*) 1 isabelle PO Q6H PRN PRN Reason: SORE THROAT Last Admin: 03/21/19 21:36 Dose: 1 isabelle Vital Signs - 8 hr 03/25/19 03/25/19 03:12 07:51 Temperature 97.3 F Pulse Rate 71 66 Respiratory 12 17 Rate Blood Pressure 150/53 134/52 (mmHg) O2 Sat by Pulse 94 93 Oximetry Oxygen Devices in Use Now: None Appearance: A+O to self and place; pleasently confused Eyes: PERRLA Ears/Nose/Mouth/Throat: Mucous Membranes Moist Neck: NL Appearance and Movements; NL JVP Respiratory: Symmetrical Chest Expansion and Respiratory Effort, Clear to Auscultation Cardiovascular: NL Sounds; No Murmurs; No JVD, RRR, No Edema Abdominal: NL Sounds; No Tenderness; No Distention, - - obese Extremities: No Edema, No Clubbing, Cyanosis Skin: No Rash or Ulcers, No Nodules or Sclerosis Neurological: NL Muscle Strength and Tone, - - A+Ox2 Lines/Tubes/Other Access: Clean, Dry and Intact Peripheral IV Nutrition: Taking PO's Result Diagrams: 03/23/19 06:48 03/23/19 06:48 Microbiology and Other Data: Microbiology 03/18/19 11:38 Aerobic Blood Culture - Preliminary Blood Venous No Growth Day 2 Anaerobic Blood Culture - Preliminary No Growth Day 2 03/18/19 11:38 Blood Culture - Preliminary Blood Venous No Growth Day 2 03/18/19 11:23 Urine Culture - Final Urine Esbl Escherichia Coli Assess/Plan/Problems-Billing Assessment: Ms. Ryo is a 68 yo F with PMH of schizophrenia, hypothyroidism, and GERD; who presented to the ED with reports of disorganized behaviors and was found to have a UTI. - Patient Problems (1) UTI (urinary tract infection) Comment: - Urine culture growing multi-drug resistant ESBL E. coli - NOT sensitive to ceftriaxone which was started on admission - continue Zosyn day 6 (2) Acute delirium Comment: - Resolved - Suspect confusion was secondary to baseline schizophrenia exacerbated by UTI - Plan as above (3) Hypothyroid Comment: - Continue levothyroxine (4) Schizophrenia Comment: - Presented with disorganized behavior, unable to care for herself - Appreciate Psych consult; lacks capacity to make medical decisions - Continue Depakote, paliperidone (5) DVT prophylaxis Comment: - Lovenox (6) Full code status Comment: Status and Disposition: Inpatient. Anticipate need for placement as she is unable to care for herself at home. She lacks capacity to make her own medical decisions.
[2019-03-25] MEDS: Enoxaparin(*) 40 MG/0.4 ML SYR SUBCUT SCH (13:01)
--- NOTE | 2019-03-25 15:47 | CONSULT ---
Identification - Patient Identification Reason for Psychiatric Consultation: Incapacitating Symptoms -: Patient is a 68 year old, F admitted on 03/18/19. - MHU Identification Employment Status: Disabled Hx Psychiatric Hospitalization: Yes History - Objective HPI: Laura remains pleasantly confused. She maintains a fixed delusion that she is and has some somatic abdominal complaints related to this. She cannot tell me much about what was going on in her apartment prior to coming to the hospital. She denies SI or HI. Exam Appearance: Obese Hygiene: Normal Grooming: Fairly Well Kept Psychomotor Activities: Normal Exhibits Abnormal Movement: No Attitude and Relatedness: Psychotically Related Eye Contact: Fair - Speech Quality: Unpressured Latencies: Normal Quantity: Copious Patient's Decription of Mood: "Okay" Observed Affect: Labile Affect Consistent with: Dysphoria Patient's Thought Process: Disorganized Thought Content: Yes Paranoid Ideation, No Passive Wish, No Suicidal Planning, No Homicidal Ideation Experiencing Hallucinations: No, Sensorium is Clear Type of Hallucinations: Visual: No, Auditory: No, Command: No Level of Consciousness: Alert Orientation: Yes Orientated to Time, No Intact, No Orientated to Place, No Orientated to Person Impulse Control: Poor Insight and Judgement: Impaired Impression - Impression Clinical Impression: 68 y.o. , white female with a history of multiple medical problems and schizophrenia brought in via ambulance from her apartment at [facility] due to disorganized, confused behaviors and inability to care for herself. Inpatient DSM-V Dx: R41.0 Merits Inpatient Hospitalization: No BSU: Problem List - Patient Problems (1) Delirium Current Visit: Yes Status: Acute Code(s): R41.0 - DISORIENTATION, UNSPECIFIED SNOMED Code(s): 6495541 Plan - Treatment Plan Treatment Plan: The patient is being treated medically for delirium secondary to UTI. We have resumed psychotropic med management with Depakote ER 1500mg PO qhs and paliperidone 6mg PO BID. Her valproic acid level this morning was therapeutic at 89. Her family does not believe that she can live safely anymore in the community on an independent basis. They are requesting placement in a alf setting. Level II IPRO review is pending through [facility], [facility]. The patient does not have the capacity to refuse SNF placement. Psychiatry will continue to comanage. Continued Medication Management: Continue Outpt Medication Medications: Current Medications Acetaminophen (Tylenol Tab*) 650 mg PO Q4H PRN PRN Reason: FEVER/PAIN Last Admin: 03/24/19 08:27 Dose: 650 mg Al Hydrox/Mg Hydrox/Simethicone (Maalox Plus*) 30 ml PO Q6H PRN PRN Reason: INDIGESTION Last Admin: 03/22/19 20:15 Dose: 30 ml Divalproex Sodium (Depakote Er Tab(*)) 1,500 mg PO BEDTIME [facility] Last Admin: 03/24/19 21:14 Dose: 1,500 mg Enoxaparin Sodium (Lovenox(*)) 40 mg SUBCUT Q24H [facility] Last Admin: 03/25/19 13:01 Dose: 40 mg Haloperidol Lactate (Haldol Inj Iv/Im*) 5 mg IM Q6H PRN PRN Reason: AGITATION Last Admin: 03/19/19 02:04 Dose: 5 mg Piperacillin Sod/Tazobactam (Sod 3.375 gm/ Sodium Chloride) 100 mls @ 25 mls/ hr IVPB Q8H [facility] Last Admin: 03/25/19 15:31 Dose: 25 mls/hr Levothyroxine Sodium (Synthroid Tab*) 88 mcg PO DAILY@0600 [facility] Last Admin: 03/25/19 05:51 Dose: 88 mcg Magnesium Hydroxide (Milk Of Magnharry Liq*) 30 ml PO Q4H PRN PRN Reason: CONSTIPATION Ondansetron HCl (Zofran Inj*) 4 mg IV Q4H PRN PRN Reason: NAUSEA/VOMITING Last Admin: 03/22/19 23:18 Dose: 4 mg Paliperidone (Invega Er Tab*) 6 mg PO BID [facility] Last Admin: 03/25/19 09:06 Dose: 6 mg Pantoprazole Sodium (Protonix Tab*) 40 mg PO DAILY@0600 [facility] Last Admin: 03/25/19 05:51 Dose: 40 mg Pharmacy Consult (Zosyn Per Pharmacy*) 1 note FOLLOW UP .ZOSYN PER PHARMACY [facility] Throat Lozenges (Chloraseptic Isabelle*) 1 isabelle PO Q6H PRN PRN Reason: SORE THROAT Last Admin: 03/21/19 21:36 Dose: 1 isabelle
[2019-03-25] MEDS: Divalproex ER TAB(*) 500 MG PO SCH (21:41)
[2019-03-26] MEDS: Pantoprazole TAB * 40 MG TAB PO SCH (05:45)
[2019-03-26] MEDS: Levothyroxine TAB* 88 MCG TAB PO SCH (05:45)
[2019-03-26] MEDS: ZOSYN 3.375 GM Q8H per EXTENDED INFUSION IVPB SCH ×4 (05:45→15:25)
[2019-03-26] MEDS: Paliperidone ER TAB* 6 MG TAB.ER PO SCH ×2 (08:24→19:38)
[2019-03-26] MEDS: Enoxaparin(*) 40 MG/0.4 ML SYR SUBCUT SCH (13:12)
--- NOTE | 2019-03-26 13:17 | CONSULT ---
Identification - Patient Identification Reason for Psychiatric Consultation: Incapacitating Symptoms -: Patient is a 68 year old, F admitted on 03/18/19. - MHU Identification Employment Status: Disabled Hx Psychiatric Hospitalization: Yes History - Objective HPI: Laura remains pleasantly confused. She is unable to account for how she would take care of herself in the outpatient setting if she were discharged back to [facility]. She denies SI or HI. Exam Appearance: Obese Hygiene: Normal Grooming: Fairly Well Kept Psychomotor Activities: Normal Exhibits Abnormal Movement: No Attitude and Relatedness: Psychotically Related Eye Contact: Fair - Speech Quality: Unpressured Latencies: Normal Quantity: Copious Patient's Decription of Mood: "Okay" Observed Affect: Fair Affect Consistent with: Euthymia Patient's Thought Process: Disorganized Thought Content: Yes Paranoid Ideation, No Passive Wish, No Suicidal Planning, No Homicidal Ideation Experiencing Hallucinations: No, Sensorium is Clear Type of Hallucinations: Visual: No, Auditory: No, Command: No Level of Consciousness: Alert Orientation: Yes Orientated to Time, No Intact, No Orientated to Place, No Orientated to Person Impulse Control: Poor Insight and Judgement: Impaired Impression - Impression Clinical Impression: 68 y.o. , white female with a history of multiple medical problems and schizophrenia brought in via ambulance from her apartment at [facility] due to disorganized, confused behaviors and inability to care for herself. Inpatient DSM-V Dx: R41.0 Merits Inpatient Hospitalization: No BSU: Problem List - Patient Problems (1) Delirium Current Visit: Yes Status: Acute Code(s): R41.0 - DISORIENTATION, UNSPECIFIED SNOMED Code(s): 4948986 Plan - Treatment Plan Treatment Plan: The patient is being treated medically for delirium secondary to UTI. We have resumed psychotropic med management with Depakote ER 1500mg PO qhs and paliperidone 6mg PO BID. Her valproic acid level is therapeutic at 89. Her family does not believe that she can live safely anymore in the community on an independent basis. They are requesting placement in a alf setting. Level II IPRO review is pending through [facility]. The patient does not have the capacity to refuse SNF placement. Psychiatry will continue to co-manage. Continued Medication Management: Continue Outpt Medication Medications: Current Medications Acetaminophen (Tylenol Tab*) 650 mg PO Q4H PRN PRN Reason: FEVER/PAIN Last Admin: 03/24/19 08:27 Dose: 650 mg Al Hydrox/Mg Hydrox/Simethicone (Maalox Plus*) 30 ml PO Q6H PRN PRN Reason: INDIGESTION Last Admin: 03/22/19 20:15 Dose: 30 ml Divalproex Sodium (Depakote Er Tab(*)) 1,500 mg PO BEDTIME [facility] Last Admin: 03/25/19 21:41 Dose: 1,500 mg Enoxaparin Sodium (Lovenox(*)) 40 mg SUBCUT Q24H [facility] Last Admin: 03/26/19 13:12 Dose: 40 mg Haloperidol Lactate (Haldol Inj Iv/Im*) 5 mg IM Q6H PRN PRN Reason: AGITATION Last Admin: 03/19/19 02:04 Dose: 5 mg Piperacillin Sod/Tazobactam (Sod 3.375 gm/ Sodium Chloride) 100 mls @ 25 mls/ hr IVPB Q8H [facility] Last Admin: 03/26/19 05:45 Dose: 25 mls/hr Levothyroxine Sodium (Synthroid Tab*) 88 mcg PO DAILY@0600 [facility] Last Admin: 03/26/19 05:45 Dose: 88 mcg Magnesium Hydroxide (Milk Of Magnesia Liq*) 30 ml PO Q4H PRN PRN Reason: CONSTIPATION Ondansetron HCl (Zofran Inj*) 4 mg IV Q4H PRN PRN Reason: NAUSEA/VOMITING Last Admin: 03/22/19 23:18 Dose: 4 mg Paliperidone (Invega Er Tab*) 6 mg PO BID [facility] Last Admin: 03/26/19 08:24 Dose: 6 mg Pantoprazole Sodium (Protonix Tab*) 40 mg PO DAILY@0600 [facility] Last Admin: 03/26/19 05:45 Dose: 40 mg Pharmacy Consult (Zosyn Per Pharmacy*) 1 note FOLLOW UP .ZOSYN PER PHARMACY [facility] Throat Lozenges (Chloraseptic Isabelle*) 1 isabelle PO Q6H PRN PRN Reason: SORE THROAT Last Admin: 03/21/19 21:36 Dose: 1 isabelle
--- NOTE | 2019-03-26 17:54 | PN ---
Subjective Date of Service: 03/26/19 Interval History: Patient is pleasant and cooperative. Reports occasional lower abd cramping. Denies fever, chills, sob, cp, palpitations, urinary symptoms. Family History: Unchanged from Admission Social History: Unchanged from Admission Past Medical History: Unchanged from Admission Objective Active Medications: Acetaminophen (Tylenol Tab*) 650 mg PO Q4H PRN PRN Reason: FEVER/PAIN Last Admin: 03/24/19 08:27 Dose: 650 mg Al Hydrox/Mg Hydrox/Simethicone (Maalox Plus*) 30 ml PO Q6H PRN PRN Reason: INDIGESTION Last Admin: 03/22/19 20:15 Dose: 30 ml Divalproex Sodium (Depakote Er Tab(*)) 1,500 mg PO BEDTIME [facility] Last Admin: 03/25/19 21:41 Dose: 1,500 mg Enoxaparin Sodium (Lovenox(*)) 40 mg SUBCUT Q24H [facility] Last Admin: 03/26/19 13:12 Dose: 40 mg Haloperidol Lactate (Haldol Inj Iv/Im*) 5 mg IM Q6H PRN PRN Reason: AGITATION Last Admin: 03/19/19 02:04 Dose: 5 mg Piperacillin Sod/Tazobactam (Sod 3.375 gm/ Sodium Chloride) 100 mls @ 25 mls/ hr IVPB Q8H [facility] Last Admin: 03/26/19 15:25 Dose: 25 mls/hr Levothyroxine Sodium (Synthroid Tab*) 88 mcg PO DAILY@0600 [facility] Last Admin: 03/26/19 05:45 Dose: 88 mcg Magnesium Hydroxide (Milk Of Magnesia Liq*) 30 ml PO Q4H PRN PRN Reason: CONSTIPATION Ondansetron HCl (Zofran Inj*) 4 mg IV Q4H PRN PRN Reason: NAUSEA/VOMITING Last Admin: 03/22/19 23:18 Dose: 4 mg Paliperidone (Invega Er Tab*) 6 mg PO BID [facility] Last Admin: 03/26/19 08:24 Dose: 6 mg Pantoprazole Sodium (Protonix Tab*) 40 mg PO DAILY@0600 [facility] Last Admin: 03/26/19 05:45 Dose: 40 mg Pharmacy Consult (Zosyn Per Pharmacy*) 1 note FOLLOW UP .ZOSYN PER PHARMACY [facility] Throat Lozenges (Chloraseptic Isabelle*) 1 isabelle PO Q6H PRN PRN Reason: SORE THROAT Last Admin: 03/21/19 21:36 Dose: 1 isabelle Vital Signs - 8 hr 03/26/19 11:15 Temperature 97.5 F Pulse Rate 71 Respiratory 20 Rate Blood Pressure 132/53 (mmHg) O2 Sat by Pulse 94 Oximetry Oxygen Devices in Use Now: None Appearance: Comfortable, NAD Eyes: No Scleral Icterus Ears/Nose/Mouth/Throat: Clear Oropharnyx, Mucous Membranes Moist Neck: NL Appearance and Movements; NL JVP Respiratory: Symmetrical Chest Expansion and Respiratory Effort, Clear to Auscultation Cardiovascular: NL Sounds; No Murmurs; No JVD, RRR, No Edema Abdominal: NL Sounds; No Tenderness; No Distention Lymphatic: No Cervical Adenopathy Extremities: No Clubbing, Cyanosis Skin: No Rash or Ulcers Neurological: - - Alert. Oriented to self and place. Nutrition: Taking PO's Result Diagrams: 03/23/19 06:48 03/23/19 06:48 Additional Lab and Data: . Microbiology and Other Data: Microbiology 03/18/19 11:38 Aerobic Blood Culture - Preliminary Blood Venous No Growth Day 2 Anaerobic Blood Culture - Preliminary No Growth Day 2 03/18/19 11:38 Blood Culture - Preliminary Blood Venous No Growth Day 2 03/18/19 11:23 Urine Culture - Final Urine Esbl Escherichia Coli Assess/Plan/Problems-Billing Assessment: Ms. Roy is a 68 yo F with PMH of schizophrenia, hypothyroidism, and GERD; who presented to the ED with reports of disorganized behaviors and was found to have a UTI. - Patient Problems (1) Acute delirium Comment: - Resolved - Suspect confusion was secondary to baseline schizophrenia exacerbated by UTI - Completed course of abx - Psych consulting to assist with schizophrenia (2) Full code status Current Visit: Yes Status: Acute Code(s): Z78.9 - OTHER SPECIFIED HEALTH STATUS SNOMED Code(s): 489850069 Comment: (3) Schizophrenia Current Visit: Yes Status: Acute Code(s): F20.9 - SCHIZOPHRENIA, UNSPECIFIED SNOMED Code(s): 88744861 Comment: - Presented with disorganized behavior, unable to care for herself - Appreciate Psych consult; lacks capacity to make medical decisions - Continue Depakote, paliperidone (4) UTI (urinary tract infection) Comment: - Completed 7 days of Zosyn, therefore, discontinue - Urine culture ggrew ESBL E. coli (5) Hypothyroid Comment: - Continue levothyroxine (6) DVT prophylaxis Comment: - Lovenox Status and Disposition: Inpatient. Anticipate need for placement as she is unable to care for herself at home. She lacks capacity to make her own medical decisions. Attending: Mike Tinajero
[2019-03-26] MEDS: Divalproex ER TAB(*) 500 MG PO SCH (19:38)
[2019-03-26] MEDS: Acetaminophen TAB* 325 MG PO PRN (19:45)
[2019-03-27] MEDS: Pantoprazole TAB * 40 MG TAB PO SCH (06:10)
[2019-03-27] MEDS: Levothyroxine TAB* 88 MCG TAB PO SCH (06:10)
[2019-03-27 06:25] LABS: Calcium 8.9 mg/dL (8.6-10.3); EGFR African American 93.3 (>60); EGFR Non-African American 77.1 (>60)
[2019-03-27 07:33] LABS: ABS Basophils 0.1 10^3/ul (0-0.2); ABS Eosinophils 0.1 10^3/ul (0-0.6); ABS Lymphocytes 2.9 10^3/ul (1.0-4.8); ABS Monocytes 0.4 10^3/ul (0-0.8); ABS Neutrophils 4.5 10^3/ul (1.5-7.7); Eosinophil % 1.8 %; Hematocrit 34 % (35-47); Hemoglobin 11.1 g/dL (12.0-16.0); Lymphocyte % 36.4 %; Mean Corpuscular HGB Conc 32 g/dL (31-36); Mean Corpuscular Hemoglobin 23 pg (27-31); Mean Corpuscular Volume 72 fL (80-97); Mean Platelet Volume 7.5 fL (7.4-10.4); Platelet Count 288 10^3/uL (150-450); Red Blood Count 4.81 10^6 /uL (3.70-4.87); Red Cell Distribution Width 17 % (10-15); White Blood Count 8.1 10^3/uL (3.5-10.8)
[2019-03-27] MEDS: Paliperidone ER TAB* 6 MG TAB.ER PO SCH ×2 (09:08→20:25)
[2019-03-27] MEDS: Acetaminophen TAB* 325 MG PO PRN ×2 (12:07→20:29)
[2019-03-27] MEDS: Enoxaparin(*) 40 MG/0.4 ML SYR SUBCUT SCH (12:14)
--- NOTE | 2019-03-27 18:11 | PN ---
Subjective Date of Service: 03/27/19 Interval History: Resting in bed on assessment. Patient is pleasant, engaging well, and answering questions appropriately. Denies abd pain, urinary symptoms, cp, sob, palpitations, nausea, vomiting. Had BM today. Family History: Unchanged from Admission Social History: Unchanged from Admission Past Medical History: Unchanged from Admission Objective Active Medications: Acetaminophen (Tylenol Tab*) 650 mg PO Q4H PRN PRN Reason: FEVER/PAIN Last Admin: 03/27/19 12:07 Dose: 650 mg Al Hydrox/Mg Hydrox/Simethicone (Maalox Plus*) 30 ml PO Q6H PRN PRN Reason: INDIGESTION Last Admin: 03/22/19 20:15 Dose: 30 ml Divalproex Sodium (Depakote Er Tab(*)) 1,500 mg PO BEDTIME [facility] Last Admin: 03/26/19 19:38 Dose: 1,500 mg Enoxaparin Sodium (Lovenox(*)) 40 mg SUBCUT Q24H [facility] Last Admin: 03/27/19 12:14 Dose: 40 mg Haloperidol Lactate (Haldol Inj Iv/Im*) 5 mg IM Q6H PRN PRN Reason: AGITATION Last Admin: 03/19/19 02:04 Dose: 5 mg Levothyroxine Sodium (Synthroid Tab*) 88 mcg PO DAILY@0600 [facility] Last Admin: 03/27/19 06:10 Dose: 88 mcg Magnesium Hydroxide (Milk Of Magnesia Liq*) 30 ml PO Q4H PRN PRN Reason: CONSTIPATION Ondansetron HCl (Zofran Inj*) 4 mg IV Q4H PRN PRN Reason: NAUSEA/VOMITING Last Admin: 03/22/19 23:18 Dose: 4 mg Paliperidone (Invega Er Tab*) 6 mg PO BID [facility] Last Admin: 03/27/19 09:08 Dose: 6 mg Pantoprazole Sodium (Protonix Tab*) 40 mg PO DAILY@0600 [facility] Last Admin: 03/27/19 06:10 Dose: 40 mg Throat Lozenges (Chloraseptic Isabelle*) 1 isabelle PO Q6H PRN PRN Reason: SORE THROAT Last Admin: 03/21/19 21:36 Dose: 1 isabelle Vital Signs - 8 hr 03/27/19 03/27/19 11:27 16:36 Temperature 98.1 F 97.6 F Pulse Rate 73 68 Respiratory 20 22 Rate Blood Pressure 138/51 142/66 (mmHg) O2 Sat by Pulse 94 92 Oximetry Oxygen Devices in Use Now: None Appearance: Comfortable, NAD Eyes: No Scleral Icterus, PERRLA Ears/Nose/Mouth/Throat: Clear Oropharnyx, Mucous Membranes Moist Neck: NL Appearance and Movements; NL JVP Respiratory: Symmetrical Chest Expansion and Respiratory Effort, Clear to Auscultation Cardiovascular: NL Sounds; No Murmurs; No JVD, RRR, No Edema Abdominal: NL Sounds; No Tenderness; No Distention Lymphatic: No Cervical Adenopathy Extremities: No Clubbing, Cyanosis Skin: No Rash or Ulcers Neurological: Alert and Oriented x 3, NL Muscle Strength and Tone Nutrition: Taking PO's Result Diagrams: 03/27/19 05:09 03/27/19 05:09 Additional Lab and Data: Laboratory Results - last 24 hr 03/27/19 03/27/19 05:09 05:09 WBC 8.1 RBC 4.81 Hgb 11.1 L Hct 34 L MCV 72 L MCH 23 L MCHC 32 RDW 17 H Plt Count 288 MPV 7.5 Neut % (Auto) 56.2 Lymph % (Auto) 36.4 [place] % (Auto) 4.7 Eos % (Auto) 1.8 Baso % (Auto) 0.9 Absolute Neuts (auto) 4.5 Absolute Lymphs (auto) 2.9 Absolute Monos (auto) 0.4 Absolute Eos (auto) 0.1 Absolute Basos (auto) 0.1 Absolute Nucleated RBC 0.0 Nucleated RBC % 0.0 Sodium 141 Potassium 4.0 Chloride 107 Carbon Dioxide 29 Anion Gap 5 BUN 12 Creatinine 0.75 Est GFR ( Amer) 93.3 Est GFR (Non-Af Amer) 77.1 BUN/Creatinine Ratio 16.0 Glucose 94 Calcium 8.9 Microbiology and Other Data: Microbiology 03/18/19 11:38 Blood Venous Blood Culture - Final No Growth Day 5 03/18/19 11:38 Blood Venous Aerobic Blood Culture - Final No Growth Day 5 03/18/19 11:38 Blood Venous Anaerobic Blood Culture - Final No Growth Day 5 03/18/19 11:23 Urine Urine Culture - Final Esbl Escherichia Coli Assess/Plan/Problems-Billing Assessment: Ms. Roy is a 68 yo F with PMH of schizophrenia, hypothyroidism, and GERD; who presented to the ED with reports of disorganized behaviors and was found to have a UTI. - Patient Problems (1) Acute delirium Comment: - Pleasant, appropriate, and oriented x3 today. - Resolved - Suspect confusion was secondary to baseline schizophrenia exacerbated by UTI - Completed course of abx - Psych consulting to assist with schizophrenia (2) Schizophrenia Comment: - Presented with disorganized behavior, unable to care for herself - Appreciate Psych consult; lacks capacity to make medical decisions - Continue Depakote, paliperidone (3) UTI (urinary tract infection) Comment: - Completed 7 days of Zosyn, therefore, discontinue - Urine culture ggrew ESBL E. coli (4) Hypothyroid Comment: - Continue levothyroxine (5) DVT prophylaxis Comment: - Lovenox (6) Full code status Comment: Status and Disposition: Inpatient. Anticipate need for placement as she is unable to care for herself at home. She lacks capacity to make her own medical decisions. Attending: Mike Tinajero
[2019-03-27] MEDS: Divalproex ER TAB(*) 500 MG PO SCH (20:25)
[2019-03-28] MEDS: Pantoprazole TAB * 40 MG TAB PO SCH (06:14)
[2019-03-28] MEDS: Levothyroxine TAB* 88 MCG TAB PO SCH (06:14)
[2019-03-28] MEDS: Paliperidone ER TAB* 6 MG TAB.ER PO SCH ×2 (09:59→19:45)
[2019-03-28] MEDS: Enoxaparin(*) 40 MG/0.4 ML SYR SUBCUT SCH (12:58)
--- NOTE | 2019-03-28 12:59 | CONSULT ---
Identification - Patient Identification Reason for Psychiatric Consultation: Incapacitating Symptoms -: Patient is a 68 year old, F admitted on 03/18/19. - MHU Identification Employment Status: Disabled Hx Psychiatric Hospitalization: Yes History - Objective HPI: Laura remains pleasantly confused. She is no longer delusional about being , but remains somatic with complaints of non-focal cramping in her abdomen. She denies SI or HI. Exam Appearance: Obese Hygiene: Normal Grooming: Fairly Well Kept Psychomotor Activities: Normal Exhibits Abnormal Movement: No Attitude and Relatedness: Psychotically Related Eye Contact: Fair - Speech Quality: Unpressured Latencies: Normal Quantity: Copious Patient's Decription of Mood: "Okay" Observed Affect: Fair Affect Consistent with: Euthymia Patient's Thought Process: Disorganized Thought Content: Yes Paranoid Ideation, No Passive Wish, No Suicidal Planning, No Homicidal Ideation Experiencing Hallucinations: No, Sensorium is Clear Type of Hallucinations: Visual: No, Auditory: No, Command: No Level of Consciousness: Alert Orientation: Yes Intact, Yes Orientated to Time, Yes Orientated to Place, Yes Orientated to Person Impulse Control: Poor Insight and Judgement: Impaired Impression - Impression Clinical Impression: 68 y.o. , white female with a history of multiple medical problems and schizophrenia brought in via ambulance from her apartment at [facility] due to disorganized, confused behaviors and inability to care for herself. Inpatient DSM-V Dx: R41.0 Merits Inpatient Hospitalization: No BSU: Problem List - Patient Problems (1) Delirium Current Visit: Yes Status: Acute Code(s): R41.0 - DISORIENTATION, UNSPECIFIED SNOMED Code(s): 2365309 Plan - Treatment Plan Treatment Plan: The patient is being treated medically for delirium secondary to UTI. We have resumed psychotropic med management with Depakote ER 1500mg PO qhs and paliperidone 6mg PO BID. Her valproic acid level is therapeutic at 89. Her family does not believe that she can live safely anymore in the community on an independent basis. They are [place] placement in a [place] [facility] [place] setting. Level II IPRO review is pending through [facility]. The patient does not have the capacity to refuse SNF placement. Psychiatry will continue to co-manage. Continued Medication Management: Continue Outpt Medication Medications: Current Medications Acetaminophen (Tylenol Tab*) 650 mg PO Q4H PRN PRN Reason: FEVER/PAIN Last Admin: 03/27/19 20:29 Dose: 650 mg Al Hydrox/Mg Hydrox/Simethicone (Maalox Plus*) 30 ml PO Q6H PRN PRN Reason: INDIGESTION Last Admin: 03/22/19 20:15 Dose: 30 ml Divalproex Sodium (Depakote Er Tab(*)) 1,500 mg PO BEDTIME [facility] Last Admin: 03/27/19 20:25 Dose: 1,500 mg Enoxaparin Sodium (Lovenox(*)) 40 mg SUBCUT Q24H [facility] Last Admin: 03/27/19 12:14 Dose: 40 mg Haloperidol Lactate (Haldol Inj Iv/Im*) 5 mg IM Q6H PRN PRN Reason: AGITATION Last Admin: 03/19/19 02:04 Dose: 5 mg Levothyroxine Sodium (Synthroid Tab*) 88 mcg PO DAILY@0600 [facility] Last Admin: 03/28/19 06:14 Dose: 88 mcg Magnesium Hydroxide (Milk Of [place] Liq*) 30 ml PO Q4H PRN PRN Reason: CONSTIPATION Ondansetron HCl (Zofran Inj*) 4 mg IV Q4H PRN PRN Reason: NAUSEA/VOMITING Last Admin: 03/22/19 23:18 Dose: 4 mg Paliperidone (Invega Er Tab*) 6 mg PO BID [facility] Last Admin: 03/28/19 09:59 Dose: 6 mg Pantoprazole Sodium (Protonix Tab*) 40 mg PO DAILY@0600 [facility] Last Admin: 03/28/19 06:14 Dose: 40 mg Throat Lozenges (Chloraseptic Isabelle*) 1 isabelle PO Q6H PRN PRN Reason: SORE THROAT Last Admin: 03/21/19 21:36 Dose: 1 isabelle
--- NOTE | 2019-03-28 18:05 | PN ---
Subjective Date of Service: 03/28/19 Interval History: Resting in bed on assessment. Patient is pleasant and making needs known. Continues to complain of lower abd cramping as she is pointing to pelvic region. Denies constipation, urinary symptoms, vaginal discharge, or bleeding. Denies sob, cp, palpitation, nausea, vomiting, diarrhea. Family History: Unchanged from Admission Social History: Unchanged from Admission Past Medical History: Unchanged from Admission Objective Active Medications: Acetaminophen (Tylenol Tab*) 650 mg PO Q4H PRN PRN Reason: FEVER/PAIN Last Admin: 03/27/19 20:29 Dose: 650 mg Al Hydrox/Mg Hydrox/Simethicone (Maalox Plus*) 30 ml PO Q6H PRN PRN Reason: INDIGESTION Last Admin: 03/22/19 20:15 Dose: 30 ml Divalproex Sodium (Depakote Er Tab(*)) 1,500 mg PO BEDTIME [facility] Last Admin: 03/27/19 20:25 Dose: 1,500 mg Enoxaparin Sodium (Lovenox(*)) 40 mg SUBCUT Q24H [facility] Last Admin: 03/28/19 12:58 Dose: 40 mg Haloperidol Lactate (Haldol Inj Iv/Im*) 5 mg IM Q6H PRN PRN Reason: AGITATION Last Admin: 03/19/19 02:04 Dose: 5 mg Levothyroxine Sodium (Synthroid Tab*) 88 mcg PO DAILY@0600 [facility] Last Admin: 03/28/19 06:14 Dose: 88 mcg Magnesium Hydroxide (Milk Of Magnesia Liq*) 30 ml PO Q4H PRN PRN Reason: CONSTIPATION Ondansetron HCl (Zofran Inj*) 4 mg IV Q4H PRN PRN Reason: NAUSEA/VOMITING Last Admin: 03/22/19 23:18 Dose: 4 mg Paliperidone (Invega Er Tab*) 6 mg PO BID [facility] Last Admin: 03/28/19 09:59 Dose: 6 mg Pantoprazole Sodium (Protonix Tab*) 40 mg PO DAILY@0600 [facility] Last Admin: 03/28/19 06:14 Dose: 40 mg Throat Lozenges (Chloraseptic Isabelle*) 1 isabelle PO Q6H PRN PRN Reason: SORE THROAT Last Admin: 03/21/19 21:36 Dose: 1 isabelle Vital Signs - 8 hr 03/28/19 03/28/19 11:36 15:48 Temperature 98.3 F 97.5 F Pulse Rate 67 69 Respiratory 16 16 Rate Blood Pressure 129/51 127/56 (mmHg) O2 Sat by Pulse 93 Oximetry Oxygen Devices in Use Now: None Appearance: Comfortable, NAD Eyes: No Scleral Icterus Ears/Nose/Mouth/Throat: Clear Oropharnyx, Mucous Membranes Moist Neck: NL Appearance and Movements; NL JVP Respiratory: Symmetrical Chest Expansion and Respiratory Effort, Clear to Auscultation Cardiovascular: NL Sounds; No Murmurs; No JVD, RRR, No Edema Abdominal: NL Sounds; No Tenderness; No Distention, - Lymphatic: No Cervical Adenopathy Extremities: No Clubbing, Cyanosis Skin: No Rash or Ulcers Neurological: Alert and Oriented x 3, NL Muscle Strength and Tone Nutrition: Taking PO's Result Diagrams: 03/27/19 05:09 03/27/19 05:09 Additional Lab and Data: . Microbiology and Other Data: Microbiology 03/18/19 11:38 Blood Culture - Final Blood Venous No Growth Day 5 03/18/19 11:38 Aerobic Blood Culture - Final Blood Venous No Growth Day 5 Anaerobic Blood Culture - Final No Growth Day 5 03/18/19 11:23 Urine Culture - Final Urine Esbl Escherichia Coli Assess/Plan/Problems-Billing Assessment: Ms. Roy is a 68 yo F with PMH of schizophrenia, hypothyroidism, and GERD; who presented to the ED with reports of disorganized behaviors and was found to have a UTI. - Patient Problems (1) Abdominal pain Comment: - Reports lower abd intermittent cramping and described it "like period cramps" - Pelvic ultrasound ordered (2) Acute delirium Comment: - Pleasant, appropriate, and oriented x3 today. - Resolved - Suspect confusion was secondary to baseline schizophrenia exacerbated by UTI - Completed course of abx - Psych consulting to assist with schizophrenia (3) Schizophrenia Comment: - Presented with disorganized behavior, unable to care for herself - Appreciate Psych consult; lacks capacity to make medical decisions - Continue Depakote, paliperidone (4) UTI (urinary tract infection) Comment: - Completed 7 days of Zosyn, therefore, discontinued - Urine culture ggrew ESBL E. coli (5) Hypothyroid Comment: - Continue levothyroxine (6) DVT prophylaxis Comment: - Lovenox (7) Full code status Comment: Status and Disposition: Inpatient. Anticipate need for placement as she is unable to care for herself at home. She lacks capacity to make her own medical decisions. Attending: Mike Tinajero
[2019-03-28] MEDS: Divalproex ER TAB(*) 500 MG PO SCH (19:45)
[2019-03-29] MEDS: Pantoprazole TAB * 40 MG TAB PO SCH (05:53)
[2019-03-29] MEDS: Levothyroxine TAB* 88 MCG TAB PO SCH (05:53)
[2019-03-29] MEDS: Paliperidone ER TAB* 6 MG TAB.ER PO SCH ×2 (08:44→20:00)
[2019-03-29] MEDS: Magnesium Hydroxide LIQ* 30 ML UDC PO PRN (08:51)
--- NOTE | 2019-03-29 12:59 | PN ---
Subjective Date of Service: 03/29/19 Interval History: Ms. Roy is feeling well this morning. She offers no complaints. Feels she is improving, but unable to verbalize how. Denies CP, SOB, N/V. Happy that she got to shower this morning. No concerns from nursing. Family History: Unchanged from Admission Social History: Unchanged from Admission Past Medical History: Unchanged from Admission Objective Active Medications: Acetaminophen (Tylenol Tab*) 650 mg PO Q4H PRN FEVER/PAIN Al Hydrox/Mg Hydrox/Simethicone (Maalox Plus*) 30 ml PO Q6H PRN INDIGESTION Divalproex Sodium (Depakote Er Tab(*)) 1,500 mg PO BEDTIME [facility] Enoxaparin Sodium (Lovenox(*)) 40 mg SUBCUT Q24H [facility] Haloperidol Lactate (Haldol Inj Iv/Im*) 5 mg IM Q6H PRN AGITATION Levothyroxine Sodium (Synthroid Tab*) 88 mcg PO DAILY@0600 [facility] Magnesium Hydroxide (Milk Of Magnesia Liq*) 30 ml PO Q4H PRN CONSTIPATION Ondansetron HCl (Zofran Inj*) 4 mg IV Q4H PRN NAUSEA/VOMITING Paliperidone (Invega Er Tab*) 6 mg PO BID [facility] Pantoprazole Sodium (Protonix Tab*) 40 mg PO DAILY@0600 [facility] Throat Lozenges (Chloraseptic Isabelle*) 1 isabelle PO Q6H PRN SORE THROAT Vital Signs - 8 hr 03/29/19 03/29/19 03/29/19 07:58 08:00 12:07 Temperature 98.6 F 98.3 F Pulse Rate 74 72 Respiratory 12 18 20 Rate Blood Pressure 150/43 136/64 (mmHg) O2 Sat by Pulse 96 93 Oximetry Oxygen Devices in Use Now: None Appearance: Middle-aged female laying in bed in NAD Eyes: No Scleral Icterus Ears/Nose/Mouth/Throat: Mucous Membranes Moist Neck: NL Appearance and Movements; NL JVP, Trachea Midline Respiratory: Symmetrical Chest Expansion and Respiratory Effort, Clear to Auscultation Cardiovascular: NL Sounds; No Murmurs; No JVD, RRR Abdominal: NL Sounds; No Tenderness; No Distention Extremities: No Edema Neurological: - - Oriented to self and place Lines/Tubes/Other Access: Clean, Dry and Intact Peripheral IV Nutrition: Taking PO's Result Diagrams: 03/27/19 05:09 03/27/19 05:09 Assess/Plan/Problems-Billing Assessment: Ms. Roy is a 68 yo F with PMH of schizophrenia, hypothyroidism, and GERD; who presented to the ED with reports of disorganized behaviors and was found to have a UTI. - Patient Problems (1) Acute delirium Code(s): R41.0 - DISORIENTATION, UNSPECIFIED Comment: - Resolved - Suspect confusion was secondary to baseline schizophrenia exacerbated by UTI - Completed course of abx - Psych consulting to assist with schizophrenia (2) Schizophrenia Code(s): F20.9 - SCHIZOPHRENIA, UNSPECIFIED Comment: - Presented with disorganized behavior, unable to care for herself - Appreciate Psych consult; lacks capacity to make medical decisions - Continue Depakote, paliperidone (3) Abdominal pain Code(s): R10.9 - UNSPECIFIED ABDOMINAL PAIN Comment: - Resolved - Pelvic ultrasound unremarkable (4) UTI (urinary tract infection) Comment: - Completed 7 days of Zosyn - Urine culture grew ESBL E. coli (5) Hypothyroid Code(s): E03.9 - HYPOTHYROIDISM, UNSPECIFIED Comment: - Continue levothyroxine (6) DVT prophylaxis Code(s): Z29.9 - ENCOUNTER FOR PROPHYLACTIC MEASURES, UNSPECIFIED Comment: - Lovenox (7) Full code status Code(s): Z78.9 - OTHER SPECIFIED HEALTH STATUS Comment: Status and Disposition: Inpatient, assisted care. Anticipate need for placement as she is unable to care for herself at home. She lacks capacity to make her own medical decisions. Attending: Mike Tinajero
[2019-03-29] MEDS: Enoxaparin(*) 40 MG/0.4 ML SYR SUBCUT SCH (14:54)
[2019-03-29] MEDS: Al Hydrox/Mg Hydrox/Simet LIQ* 30 ML UDC PO PRN (14:54)
--- NOTE | 2019-03-29 15:19 | CONSULT ---
Identification - Patient Identification Reason for Psychiatric Consultation: Incapacitating Symptoms -: Patient is a 68 year old, F admitted on 03/18/19. - MHU Identification Employment Status: Disabled Hx Psychiatric Hospitalization: Yes History - Objective HPI: Laura has received a Level II screening and been determined appropriate for SNF placement. She does not seem to express much understanding of this and asks if she can merely stay here in the hospital. She remains pleasantly confused on examination. She is no longer delusional about being , but remains somatic with complaints of non-focal cramping in her abdomen. She denies SI or HI. Exam Appearance: Obese Hygiene: Normal Grooming: Fairly Well Kept Psychomotor Activities: Normal Exhibits Abnormal Movement: No Attitude and Relatedness: Psychotically Related Eye Contact: Fair - Speech Quality: Unpressured Latencies: Normal Quantity: Copious Patient's Decription of Mood: "Okay" Observed Affect: Fair Affect Consistent with: Euthymia Patient's Thought Process: Disorganized Thought Content: Yes Paranoid Ideation, No Passive Wish, No Suicidal Planning, No Homicidal Ideation Experiencing Hallucinations: No, Sensorium is Clear Type of Hallucinations: Visual: No, Auditory: No, Command: No Level of Consciousness: Alert Orientation: Yes Intact, Yes Orientated to Time, Yes Orientated to Place, Yes Orientated to Person Impulse Control: Poor Insight and Judgement: Impaired Impression - Impression Clinical Impression: 68 y.o. , white female with a history of multiple medical problems and schizophrenia brought in via ambulance from her apartment at [facility] due to disorganized, confused behaviors and inability to care for herself. Inpatient DSM-V Dx: R41.0 Merits Inpatient Hospitalization: No BSU: Problem List - Patient Problems (1) Delirium Current Visit: Yes Status: Acute Code(s): R41.0 - DISORIENTATION, UNSPECIFIED SNOMED Code(s): 3831575 Plan - Treatment Plan Treatment Plan: The patient is psychiatrically cleared for discharge to a fpc facility and SW is working with her family to determine an appropriate placement. We have resumed psychotropic med management with Depakote ER 1500mg PO qhs and paliperidone 6mg PO BID. Her valproic acid level is therapeutic at 89. The patient does not have the capacity to refuse SNF placement. Psychiatry is signing off but can be re-consulted in the event of any changes in her status. Continued Medication Management: Continue Outpt Medication Medications: Current Medications Acetaminophen (Tylenol Tab*) 650 mg PO Q4H PRN PRN Reason: FEVER/PAIN Last Admin: 03/27/19 20:29 Dose: 650 mg Al Hydrox/Mg Hydrox/Simethicone (Maalox Plus*) 30 ml PO Q6H PRN PRN Reason: INDIGESTION Last Admin: 03/29/19 14:54 Dose: 30 ml Divalproex Sodium (Depakote Er Tab(*)) 1,500 mg PO BEDTIME [facility] Last Admin: 03/28/19 19:45 Dose: 1,500 mg Enoxaparin Sodium (Lovenox(*)) 40 mg SUBCUT Q24H [facility] Last Admin: 03/29/19 14:54 Dose: 40 mg Haloperidol Lactate (Haldol Inj Iv/Im*) 5 mg IM Q6H PRN PRN Reason: AGITATION Last Admin: 03/19/19 02:04 Dose: 5 mg Levothyroxine Sodium (Synthroid Tab*) 88 mcg PO DAILY@0600 [facility] Last Admin: 03/29/19 05:53 Dose: 88 mcg Magnesium Hydroxide (Milk Of Magnharry Liq*) 30 ml PO Q4H PRN PRN Reason: CONSTIPATION Last Admin: 03/29/19 08:51 Dose: 30 ml Ondansetron HCl (Zofran Inj*) 4 mg IV Q4H PRN PRN Reason: NAUSEA/VOMITING Last Admin: 03/22/19 23:18 Dose: 4 mg Paliperidone (Invega Er Tab*) 6 mg PO BID [facility] Last Admin: 03/29/19 08:44 Dose: 6 mg Pantoprazole Sodium (Protonix Tab*) 40 mg PO DAILY@0600 [facility] Last Admin: 03/29/19 05:53 Dose: 40 mg Throat Lozenges (Chloraseptic Isabelle*) 1 isabelle PO Q6H PRN PRN Reason: SORE THROAT Last Admin: 03/21/19 21:36 Dose: 1 isabelle
[2019-03-29] MEDS: Divalproex ER TAB(*) 500 MG PO SCH (20:00)
[2019-03-30] MEDS: Levothyroxine TAB* 88 MCG TAB PO SCH (06:09)
[2019-03-30] MEDS: Pantoprazole TAB * 40 MG TAB PO SCH (06:09)
[2019-03-30] MEDS: Paliperidone ER TAB* 6 MG TAB.ER PO SCH ×2 (07:54→19:59)
[2019-03-30] MEDS: Enoxaparin(*) 40 MG/0.4 ML SYR SUBCUT SCH (13:17)
[2019-03-30] MEDS: Divalproex ER TAB(*) 500 MG PO SCH (19:59)
[2019-03-30] MEDS: Benzocaine/Menthol LOZ* 1 LOZENGE PO PRN (19:59)
[2019-03-31] MEDS: Pantoprazole TAB * 40 MG TAB PO SCH (06:22)
[2019-03-31] MEDS: Levothyroxine TAB* 88 MCG TAB PO SCH (06:22)
[2019-03-31] MEDS: Paliperidone ER TAB* 6 MG TAB.ER PO SCH ×2 (08:51→20:00)
[2019-03-31] MEDS: Acetaminophen TAB* 325 MG PO PRN ×2 (08:57→20:00)
[2019-03-31] MEDS: Enoxaparin(*) 40 MG/0.4 ML SYR SUBCUT SCH (12:30)
--- NOTE | 2019-03-31 14:04 | PN ---
Subjective Date of Service: 03/31/19 Interval History: Patient has no new complaints. She has some back and abdominal cramps that respond to tylenol. Denies dysuria, hematuria. She is eating well and has good BMs. She can walk with walker and assist. Family History: Unchanged from Admission Social History: Unchanged from Admission Past Medical History: Unchanged from Admission Objective Active Medications: Acetaminophen (Tylenol Tab*) 650 mg PO Q4H PRN PRN Reason: FEVER/PAIN Last Admin: 03/31/19 08:57 Dose: 650 mg Al Hydrox/Mg Hydrox/Simethicone (Maalox Plus*) 30 ml PO Q6H PRN PRN Reason: INDIGESTION Last Admin: 03/29/19 14:54 Dose: 30 ml Divalproex Sodium (Depakote Er Tab(*)) 1,500 mg PO BEDTIME [facility] Last Admin: 03/30/19 19:59 Dose: 1,500 mg Enoxaparin Sodium (Lovenox(*)) 40 mg SUBCUT Q24H [facility] Last Admin: 03/31/19 12:30 Dose: 40 mg Haloperidol Lactate (Haldol Inj Iv/Im*) 5 mg IM Q6H PRN PRN Reason: AGITATION Last Admin: 03/19/19 02:04 Dose: 5 mg Levothyroxine Sodium (Synthroid Tab*) 88 mcg PO DAILY@0600 [facility] Last Admin: 03/31/19 06:22 Dose: 88 mcg Magnesium Hydroxide (Milk Of Magnharry Liq*) 30 ml PO Q4H PRN PRN Reason: CONSTIPATION Last Admin: 03/29/19 08:51 Dose: 30 ml Ondansetron HCl (Zofran Inj*) 4 mg IV Q4H PRN PRN Reason: NAUSEA/VOMITING Last Admin: 03/22/19 23:18 Dose: 4 mg Paliperidone (Invega Er Tab*) 6 mg PO BID [facility] Last Admin: 03/31/19 08:51 Dose: 6 mg Pantoprazole Sodium (Protonix Tab*) 40 mg PO DAILY@0600 [facility] Last Admin: 03/31/19 06:22 Dose: 40 mg Throat Lozenges (Chloraseptic Isabelle*) 1 isabelle PO Q6H PRN PRN Reason: SORE THROAT Last Admin: 03/30/19 19:59 Dose: 1 isabelle Vital Signs - 8 hr 03/31/19 08:00 Respiratory 16 Rate Oxygen Devices in Use Now: None Appearance: alert, no distress Ears/Nose/Mouth/Throat: NL Teeth, Lips, Gums Neck: NL Appearance and Movements; NL JVP Respiratory: Symmetrical Chest Expansion and Respiratory Effort Cardiovascular: NL Sounds; No Murmurs; No JVD Abdominal: NL Sounds; No Tenderness; No Distention Neurological: Alert and Oriented x 3 Lines/Tubes/Other Access: Clean, Dry and Intact Peripheral IV Nutrition: Taking PO's Result Diagrams: 03/27/19 05:09 03/27/19 05:09 Microbiology and Other Data: Microbiology 03/18/19 11:38 Blood Culture - Final Blood Venous No Growth Day 5 03/18/19 11:38 Aerobic Blood Culture - Final Blood Venous No Growth Day 5 Anaerobic Blood Culture - Final No Growth Day 5 03/18/19 11:23 Urine Culture - Final Urine Esbl Escherichia Coli Assess/Plan/Problems-Billing Assessment: Ms. Roy is a 68 yo F with PMH of schizophrenia, hypothyroidism, and GERD; who presented to the ED with reports of disorganized behaviors and was found to have a UTI. - Patient Problems (1) Infection due to ESBL-producing Escherichia coli Current Visit: Yes Status: Acute Priority: High Code(s): A49.8 - OTHER BACTERIAL INFECTIONS OF UNSPECIFIED SITE; Z16.12 - EXTENDED SPECTRUM BETA LACTAMASE (ESBL) RESISTANCE SNOMED Code(s): 271480201 Comment: -UTI has resolved, completed treatment -infection was cause of delirium (2) Schizophrenia Current Visit: Yes Status: Acute Priority: Medium Code(s): F20.9 - SCHIZOPHRENIA, UNSPECIFIED SNOMED Code(s): 50777316 Comment: - Presented with disorganized behavior, unable to care for herself - Appreciate Psych consult; lacks capacity to make medical decisions - Continue Depakote, paliperidone (3) Hypothyroid Current Visit: Yes Status: Chronic Priority: Medium Code(s): E03.9 - HYPOTHYROIDISM, UNSPECIFIED SNOMED Code(s): 09567748 Comment: - TSH normal this admission - Continue levothyroxine (4) DVT prophylaxis Current Visit: Yes Status: Acute Priority: Low Code(s): Z29.9 - ENCOUNTER FOR PROPHYLACTIC MEASURES, UNSPECIFIED SNOMED Code(s): 838166673 Comment: - Lovenox Status and Disposition: Inpatient, retirement care. Anticipate need for placement as she is unable to care for herself at home. She lacks capacity to make her own medical decisions.
[2019-03-31] MEDS: Benzocaine/Menthol LOZ* 1 LOZENGE PO PRN (17:58)
[2019-03-31] MEDS: Divalproex ER TAB(*) 500 MG PO SCH (20:00)
[2019-04-01] MEDS: Pantoprazole TAB * 40 MG TAB PO SCH (05:48)
[2019-04-01] MEDS: Levothyroxine TAB* 88 MCG TAB PO SCH (05:48)
[2019-04-01] MEDS: Acetaminophen TAB* 325 MG PO PRN (08:52)
[2019-04-01] MEDS: Paliperidone ER TAB* 6 MG TAB.ER PO SCH ×2 (08:52→20:21)
[2019-04-01] MEDS: Enoxaparin(*) 40 MG/0.4 ML SYR SUBCUT SCH (15:06)
[2019-04-01] MEDS: Divalproex ER TAB(*) 500 MG PO SCH (20:21)
[2019-04-02] MEDS: Levothyroxine TAB* 88 MCG TAB PO SCH (06:10)
[2019-04-02] MEDS: Pantoprazole TAB * 40 MG TAB PO SCH (06:10)
[2019-04-02] MEDS: Paliperidone ER TAB* 6 MG TAB.ER PO SCH ×2 (08:56→20:57)
[2019-04-02] MEDS: Enoxaparin(*) 40 MG/0.4 ML SYR SUBCUT SCH (13:23)
[2019-04-02] MEDS: Divalproex ER TAB(*) 500 MG PO SCH (20:56)
[2019-04-03] MEDS: Pantoprazole TAB * 40 MG TAB PO SCH (06:05)
[2019-04-03] MEDS: Levothyroxine TAB* 88 MCG TAB PO SCH (06:05)
[2019-04-03] MEDS: Acetaminophen TAB* 325 MG PO PRN ×2 (07:46→20:41)
[2019-04-03] MEDS: Paliperidone ER TAB* 6 MG TAB.ER PO SCH ×2 (07:46→20:42)
[2019-04-03] MEDS: Benzocaine/Menthol LOZ* 1 LOZENGE PO PRN (11:24)
[2019-04-03] MEDS: Enoxaparin(*) 40 MG/0.4 ML SYR SUBCUT SCH (11:24)
[2019-04-03 11:48] LABS: Hematocrit 35 % (35-47); Hemoglobin 10.9 g/dL (12.0-16.0); Mean Platelet Volume 7.3 fL (7.4-10.4); Platelet Count 209 10^3/uL (150-450)
[2019-04-03 12:38] LABS: EGFR African American 93.3 (>60); EGFR Non-African American 77.1 (>60)
[2019-04-03] MEDS: Divalproex ER TAB(*) 500 MG PO SCH (20:41)
[2019-04-04] MEDS: Acetaminophen TAB* 325 MG PO PRN ×3 (02:53→20:59)
[2019-04-04] MEDS: Magnesium Hydroxide LIQ* 30 ML UDC PO PRN ×3 (02:56→12:35)
[2019-04-04] MEDS: Pantoprazole TAB * 40 MG TAB PO SCH (06:02)
[2019-04-04] MEDS: Levothyroxine TAB* 88 MCG TAB PO SCH (06:02)
[2019-04-04] MEDS: Paliperidone ER TAB* 6 MG TAB.ER PO SCH ×2 (10:08→20:59)
[2019-04-04] MEDS: Enoxaparin(*) 40 MG/0.4 ML SYR SUBCUT SCH (12:35)
[2019-04-04] MEDS: Divalproex ER TAB(*) 500 MG PO SCH (21:00)
[2019-04-05] MEDS: Pantoprazole TAB * 40 MG TAB PO SCH (06:02)
[2019-04-05] MEDS: Levothyroxine TAB* 88 MCG TAB PO SCH (06:02)
[2019-04-05] MEDS: Paliperidone ER TAB* 6 MG TAB.ER PO SCH ×2 (10:03→21:06)
[2019-04-05] MEDS: Acetaminophen TAB* 325 MG PO PRN ×2 (10:03→15:29)
[2019-04-05] MEDS: Enoxaparin(*) 40 MG/0.4 ML SYR SUBCUT SCH (12:29)
[2019-04-05] MEDS: Ondansetron ODT TAB* 4 MG SL PRN (15:27)
[2019-04-05] MEDS: Divalproex ER TAB(*) 500 MG PO SCH (21:06)
[2019-04-06] MEDS: Levothyroxine TAB* 88 MCG TAB PO SCH (07:00)
[2019-04-06] MEDS: Pantoprazole TAB * 40 MG TAB PO SCH (07:00)
[2019-04-06] MEDS: Paliperidone ER TAB* 6 MG TAB.ER PO SCH ×2 (09:59→21:23)
[2019-04-06] MEDS: Enoxaparin(*) 40 MG/0.4 ML SYR SUBCUT SCH (12:42)
[2019-04-06] MEDS: Acetaminophen TAB* 325 MG PO PRN (14:36)
[2019-04-06] MEDS: Magnesium Hydroxide LIQ* 30 ML UDC PO PRN (14:36)
[2019-04-06] MEDS: Divalproex ER TAB(*) 500 MG PO SCH (21:23)
[2019-04-06] MEDS: Benzocaine/Menthol LOZ* 1 LOZENGE PO PRN (21:24)
[2019-04-07] MEDS: Levothyroxine TAB* 88 MCG TAB PO SCH (06:43)
[2019-04-07] MEDS: Pantoprazole TAB * 40 MG TAB PO SCH (06:43)
[2019-04-07] MEDS: Paliperidone ER TAB* 6 MG TAB.ER PO SCH ×2 (08:35→20:39)
[2019-04-07] MEDS: Enoxaparin(*) 40 MG/0.4 ML SYR SUBCUT SCH (11:43)
[2019-04-07] MEDS: Magnesium Hydroxide LIQ* 30 ML UDC PO PRN (11:43)
[2019-04-07] MEDS: Acetaminophen TAB* 325 MG PO PRN ×2 (11:43→20:39)
--- NOTE | 2019-04-07 13:54 | PN ---
Subjective Date of Service: 04/07/19 Interval History: Denies any complaints.Reports occasional back pain and willing to try a heating pad and reports that tylenol helps.Otherwise no complaints Family History: Unchanged from Admission Social History: Unchanged from Admission Past Medical History: Unchanged from Admission Objective Active Medications: Acetaminophen (Tylenol Tab*) 650 mg PO Q4H PRN PRN Reason: FEVER/PAIN Last Admin: 04/07/19 11:43 Dose: 650 mg Al Hydrox/Mg Hydrox/Simethicone (Maalox Plus*) 30 ml PO Q6H PRN PRN Reason: INDIGESTION Last Admin: 03/29/19 14:54 Dose: 30 ml Divalproex Sodium (Depakote Er Tab(*)) 1,500 mg PO BEDTIME [facility] Last Admin: 04/06/19 21:23 Dose: 1,500 mg Enoxaparin Sodium (Lovenox(*)) 40 mg SUBCUT Q24H [facility] Last Admin: 04/07/19 11:43 Dose: 40 mg Haloperidol Lactate (Haldol Inj Iv/Im*) 5 mg IM Q6H PRN PRN Reason: AGITATION Last Admin: 03/19/19 02:04 Dose: 5 mg Levothyroxine Sodium (Synthroid Tab*) 88 mcg PO DAILY@0600 [facility] Last Admin: 04/07/19 06:43 Dose: 88 mcg Magnesium Hydroxide (Milk Of Magnesia Liq*) 30 ml PO Q4H PRN PRN Reason: CONSTIPATION Last Admin: 04/07/19 11:43 Dose: 30 ml Ondansetron HCl (Zofran Inj*) 4 mg IV Q4H PRN PRN Reason: NAUSEA/VOMITING Last Admin: 03/22/19 23:18 Dose: 4 mg Ondansetron HCl (Zofran Odt Tab*) 4 mg SL Q6H PRN PRN Reason: NAUSEA/VOMITING Last Admin: 04/05/19 15:27 Dose: 4 mg Paliperidone (Invega Er Tab*) 6 mg PO BID [facility] Last Admin: 04/07/19 08:35 Dose: 6 mg Pantoprazole Sodium (Protonix Tab*) 40 mg PO DAILY@0600 [facility] Last Admin: 04/07/19 06:43 Dose: 40 mg Throat Lozenges (Chloraseptic Isabelle*) 1 isabelle PO Q6H PRN PRN Reason: SORE THROAT Last Admin: 04/06/19 21:24 Dose: 1 isabelle Vital Signs - 8 hr 04/07/19 04/07/19 07:15 08:00 Temperature 98.2 F Pulse Rate 70 Respiratory 20 20 Rate Blood Pressure 132/56 (mmHg) O2 Sat by Pulse 94 Oximetry Oxygen Devices in Use Now: None Eyes: No Scleral Icterus Ears/Nose/Mouth/Throat: NL Teeth, Lips, Gums Neck: NL Appearance and Movements; NL JVP Respiratory: Symmetrical Chest Expansion and Respiratory Effort, Clear to Auscultation Cardiovascular: NL Sounds; No Murmurs; No JVD Abdominal: NL Sounds; No Tenderness; No Distention Skin: No Rash or Ulcers Neurological: Alert and Oriented x 3 Result Diagrams: 04/03/19 11:34 04/03/19 11:34 Additional Lab and Data: . Microbiology and Other Data: Microbiology 03/18/19 11:38 Blood Culture - Final Blood Venous No Growth Day 5 03/18/19 11:38 Aerobic Blood Culture - Final Blood Venous No Growth Day 5 Anaerobic Blood Culture - Final No Growth Day 5 03/18/19 11:23 Urine Culture - Final Urine Esbl Escherichia Coli Assess/Plan/Problems-Billing Assessment: Ms. Roy is a 68 yo F with PMH of schizophrenia, hypothyroidism, and GERD; who presented to the ED with reports of disorganized behaviors and was found to have a UTI. - Patient Problems (1) Infection due to ESBL-producing Escherichia coli Current Visit: Yes Status: Acute Priority: High Code(s): A49.8 - OTHER BACTERIAL INFECTIONS OF UNSPECIFIED SITE; Z16.12 - EXTENDED SPECTRUM BETA LACTAMASE (ESBL) RESISTANCE SNOMED Code(s): 567350371 Comment: -UTI has resolved, completed treatment -infection was cause of delirium (2) Schizophrenia Current Visit: Yes Status: Acute Priority: Medium Code(s): F20.9 - SCHIZOPHRENIA, UNSPECIFIED SNOMED Code(s): 00249028 Comment: - Presented with disorganized behavior, unable to care for herself - Appreciate Psych consult; lacks capacity to make medical decisions - Continue Depakote, paliperidone (3) Hypothyroid Current Visit: Yes Status: Chronic Priority: Medium Code(s): E03.9 - HYPOTHYROIDISM, UNSPECIFIED SNOMED Code(s): 40105927 Comment: - TSH normal this admission - Continue levothyroxine (4) DVT prophylaxis Current Visit: Yes Status: Acute Priority: Low Code(s): Z29.9 - ENCOUNTER FOR PROPHYLACTIC MEASURES, UNSPECIFIED SNOMED Code(s): 307743603 Comment: - Lovenox Status and Disposition: Inpatient, skilled nursing care. Anticipate need for placement as she is unable to care for herself at home. She lacks capacity to make her own medical decisions.
[2019-04-07] MEDS: Divalproex ER TAB(*) 500 MG PO SCH (20:39)
[2019-04-07] MEDS: Benzocaine/Menthol LOZ* 1 LOZENGE PO PRN (20:55)
[2019-04-07] MEDS: Ondansetron ODT TAB* 4 MG SL PRN (21:56)
[2019-04-08] MEDS: Al Hydrox/Mg Hydrox/Simet LIQ* 30 ML UDC PO PRN ×2 (02:04→12:10)
[2019-04-08] MEDS: Pantoprazole TAB * 40 MG TAB PO SCH (06:04)
[2019-04-08] MEDS: Levothyroxine TAB* 88 MCG TAB PO SCH (06:04)
[2019-04-08 07:16] LABS: ABS Monocytes 0.8 10^3/ul (0-0.8); ABS Neutrophils 7.3 10^3/ul (1.5-7.7); Eosinophil % 0.2 %; Hematocrit 35 % (35-47); Hemoglobin 11.2 g/dL (12.0-16.0); Lymphocyte % 19.6 %; Mean Corpuscular HGB Conc 32 g/dL (31-36); Mean Corpuscular Hemoglobin 23 pg (27-31); Mean Corpuscular Volume 71 fL (80-97); Platelet Count 199 10^3/uL (150-450); Red Blood Count 4.94 10^6 /uL (3.70-4.87); Red Cell Distribution Width 17 % (10-15); White Blood Count 10.2 10^3/uL (3.5-10.8)
[2019-04-08 07:17] LABS: BUN/Creatinine Ratio 20.9 (8-20); Calcium 8.8 mg/dL (8.6-10.3); EGFR African American 106.2 (>60); EGFR Non-African American 87.8 (>60); Potassium 4.4 mmol/L (3.5-5.0)
[2019-04-08 07:42] VITALS: BP 139/50
[2019-04-08] MEDS: Paliperidone ER TAB* 6 MG TAB.ER PO SCH (10:24)
[2019-04-08] MEDS: Acetaminophen TAB* 325 MG PO PRN ×2 (10:25→12:01)
[2019-04-08] MEDS: Benzocaine/Menthol LOZ* 1 LOZENGE PO PRN (10:26)
[2019-04-08] MEDS: Enoxaparin(*) 40 MG/0.4 ML SYR SUBCUT SCH (12:55)
--- NOTE | 2019-04-08 13:30 | DS ---
DISCHARGE SUMMARY: DATE OF ADMISSION: 03/18/19 DATE OF DISCHARGE: 04/08/19 DISCHARGE DIAGNOSES: 1. Acute delirium, secondary to baseline confusion associated with schizophrenia, exacerbated by uri nary tract infection. 2. ESBL E. coli urinary tract infection, present on admission, not Melo catheter related. SECONDARY DIAGNOSES: 1. Schizophrenia. 2. Diverticulosis with episode of diverticulitis in 2017. 3. Hypothyroidism. 4. Gastroesophageal reflux disease. MEDICATION LIST: 1. Tylenol 650 mg p.o. q.4 hours p.r.n. pain or fever. 2. Maalox Plus 40 mL p.o. q.4 hours p.r.n. constipation. 3. Levothyroxine 88 mcg p.o. daily at 6 a.m. 4. Melatonin 1 mg p.o. at bedtime as needed for insomnia. 5. Omeprazole 20 mg p.o. at 6 a.m. Medication change: Invega was increased from 3 mg to 6 mg p.o. twice a day. New medication: Divalproex ER 1500 mg p.o. at bedtime. HOSPITAL COURSE: Ms. Roy is a 68-year-old lady with past medical history as stated above, reside nt of [facility] who presents to the emergency room with confusion. As per HPI, she was naked, co dolly in feces, and screaming loudly. She was found to have likely a urinary tract infection and adm itted for further evaluation. On admission, the patient had a white cell count of 12.4 with 75% neutrophils and her urinalysis show ed 2+ LE, 3+ wbc's, and urine culture grew ESBL E. coli. The patient was seen in consultation by Psychiatry and adjustments were made to her medications with Depakote ER 1500 mg p.o. at bedtime and increasing her Invega to 6 mg twice a day. The patient received a complete course of Zosyn for treatment of her ESBL E. coli and she continued t o improve. There was a concern for the patient's capacity to care for herself in the community and she was deter mined to be appropriate for SNF placement. Psychiatry felt that the patient was cleared from a psych iatry point of view to go to a assisted facility and at this point, the patient does not have the capacity to refuse assisted placement. The patient was placed in [facility] care while arr angements were made and the patient's brother has accepted a bed at [facility] so the patient can con tinue her treatment. She is medically stable for discharge at this time. PHYSICAL EXAMINATION: Vital Signs: Temperature 96.7, heart rate 79, respiratory rate 19, oxygen sat uration is 94% on room air, blood pressure is 107/50. General: The patient is an elderly lady sittin g up in bed, in no acute distress. CVS: Normal S1, S2. Regular rate and rhythm. Chest: Breath kenny nds present bilaterally with no added sounds. Neuro: She is alert and oriented x3. Able to move al l 4 extremities. DIET: Regular diet. ACTIVITIES: As tolerated. DISPOSITION: To [place] assisted facility. STATUS WHILE IN THE HOSPITAL: Inpatient, switched to [facility] care on 03/29/19. CONDITION AT THE TIME OF DISCHARGE: Fair. Please keep in mind that this is a summarized version of this patient's hospital stay. If you need m ore information, please feel free to call me at [phone] or please obtain full medical records. TIME SPENT: Approximately 45 minutes was spent to complete this discharge. [id number]/CPS #: [id number]
== END 2019-04-08 15:50 | DRG 689 ==
LOC: ED 10:37 → MED 12:59
PROVIDERS: ADMIT Internal Medicine; ATTEND Internal Medicine
DX: N39.0 Urinary tract infection, site not specified (principal); G93.41 Metabolic encephalopathy; F05 Delirium due to known physiological condition; F20.9 Schizophrenia, unspecified; E03.9 Hypothyroidism, unspecified; B96.20 Unspecified Escherichia coli [E. coli] as the cause of diseases classified elsewhere; Z16.24 Resistance to multiple antibiotics; K21.9 Gastro-esophageal reflux disease without esophagitis; K57.30 Diverticulosis of large intestine without perforation or abscess without bleeding; E66.9 Obesity, unspecified; R10.9 Unspecified abdominal pain; Z68.34 Body mass index [BMI] 34.0-34.9, adult
CPT/HCPCS: 36415; 76856; 80048; 80053; 80164; 80307; 80320; 80329; 81003; 81015; 82565; 83605; 84439; 84443; 84520; 85014; 85018; 85025; 85049; 87040; 87077; 87086; 87186; 99284; A9270-GY; G0480; G8978-GP-CI; G8979-GP-CI; G8980-GP-CI; G8987-GO-CI; G8988-GO-CI; G8989-GO-CI; J0696; J1630; J1650; J2405; J2543